=== PATIENT | male | born 1990 | race Caucasian/White ===

== ENCOUNTER 2016-06-30 18:26 | Emergency (ER) | payer OTHER ==
[2016-06-30 19:23] VITALS: BP 142/87; PULSE 85; RESP 18; TEMP 97
--- NOTE | 2016-06-30 20:09 | XR ---
EXAMINATION TYPE: XR knee complete LT DATE OF EXAM: 06/30/2016 8:04 PM COMPARISON: 11/18/2015 HISTORY: Left knee pain TECHNIQUE: 4 views FINDINGS: I see no fracture nor dislocation. Joint spaces are fairly normal. There is no sign of join t effusion. IMPRESSION: Negative left knee exam. No change.
--- NOTE | 2016-06-30 20:15 | ED ---
Lower Extremity Injury HPI - General Chief Complaint: Extremity Injury, Lower Stated Complaint: Knee injury Time Seen by Provider: 06/30/16 19:43 Source: patient, RN notes reviewed, old records reviewed Mode of arrival: ambulatory Limitations: no limitations - History of Present Illness Initial Comments: Patient is a 26 year old male with left knee pain for one day after twisting his leg while getting out of the car. Patient reports he has had multiple surgeries on his right knee from meniscus tears, ACL tear. He reports he is from [place], and does not have an orthopedi physcician around the area. Patient states that he feels his left leg catching and that he can not fully extend or flex his knee. Patient reports that he has a popping sensation whenever extending the knee. Patient denies any peripheral paresthesias. Patient reports he can bear weight over the leg, but it feels that it will give way. - Related Data Previous Rx's Medication Instructions Recorded Naproxen 500 mg PO Q12HR #20 tab 06/30/16 Allergies Allergy/AdvReac Type Severity Reaction Status Date / Time Bees Allergy Dyspnea Uncoded 06/30/16 19:24 Review of Systems ROS Statement: Those systems with pertinent positive or pertinent negative responses have been documented in the HPI. ROS Other: All systems not noted in ROS Statement are negative. Past Medical History Past Medical History: No Reported History History of Any Multi-Drug Resistant Organisms: None Reported Past Surgical History: Orthopedic Surgery Additional Past Surgical History / Comment(s): Right knee ACL repair Past Psychological History: Anxiety, Depression Smoking Status: Current every day smoker Past Alcohol Use History: Rare Past Drug Use History: Marijuana General Exam Limitations: no limitations General appearance: alert, in no apparent distress Head exam: Present: atraumatic, normocephalic, normal inspection Eye exam: Present: normal appearance, PERRL, EOMI. Absent: scleral icterus, conjunctival injection, periorbital swelling ENT exam: Present: normal exam, mucous membranes moist Neck exam: Present: normal inspection. Absent: tenderness, meningismus, lymphadenopathy Respiratory exam: Present: normal lung sounds bilaterally. Absent: respiratory distress, wheezes, rales, rhonchi, stridor Cardiovascular Exam: Present: regular rate, normal rhythm, normal heart sounds. Absent: systolic murmur, diastolic murmur, rubs, gallop, clicks GI/Abdominal exam: Present: soft, normal bowel sounds. Absent: distended, tenderness, guarding, rebound, rigid Extremities exam: Present: normal inspection, full ROM, normal capillary refill. Absent: tenderness, pedal edema, joint swelling, calf tenderness Left Knee exam: Present: tenderness (medial meniscal tenderness. ), swelling, pain/ laxity with valgus. Absent: normal inspection, full ROM (patient can not fully extend and flex leg. ), abrasion, laceration, ecchymosis, deformity Lower Leg exam: Present: normal inspection, full ROM Ankle exam: Present: normal inspection, full ROM Foot/Toe exam: Present: normal inspection, full ROM Course Vital Signs 06/30/16 19:21 Temperature 97.0 F L Pulse Rate 85 Respiratory 18 Rate Blood Pressure 142/87 O2 Sat by Pulse 97 Oximetry Medical Decision Making - Medical Decision Making Patient is a 26 year old male with left knee pain for one day after twisting his leg while getting out of the car. Patient reports he has had multiple surgeries on his right knee from meniscus tears, ACL tear. Xray is reviewed to be negative. I discussed that patient likely has torn meniscus and strained MCL or ACL. Patient given RICARDO wraps, he is unable to fully extend leg for a knee immobilizer. Patient Has crutches at home. Patient given prescription for naproxen and referral for ortho. Patient understands treatment plan and will comply. Disposition Clinical Impression: Left knee sprain Disposition: HOME SELF-CARE Condition: Good Instructions: Knee Sprain (ED) Additional Instructions: She denies rest, ice, elevate extremity. Follow-up with orthopedic physician. Return to emergency Department if any alarming symptoms occur. Prescriptions: Naproxen 500 mg PO Q12HR #20 tab Referrals: None,Stated [Primary Care Provider] - 1-2 days Jessee Morton DO [Doctor of Osteopathic Medicine] - 1-2 days Time of Disposition: 20:14
== END 2016-06-30 20:34 | disposition home or self-care (01) ==
LOC: EC 18:26
DX: S83.92XA Sprain of unspecified site of left knee, initial encounter (principal); F17.200 Nicotine dependence, unspecified, uncomplicated; Z91.030 Bee allergy status; X50.1XXA Overexertion from prolonged static or awkward postures, initial encounter
CPT/HCPCS: 99283

== ENCOUNTER 2016-11-06 22:02 | Emergency (ER) | payer OTHER ==
[2016-11-06 22:18] VITALS: RESP 18
[2016-11-06] MEDS ORDERED: IBUPROFEN 800 MG TAB PO STA (22:27)
--- NOTE | 2016-11-06 22:39 | ED ---
Lower Extremity Injury HPI - General Chief Complaint: Extremity Injury, Lower Stated Complaint: knee pain Time Seen by Provider: 11/06/16 22:19 Source: patient Mode of arrival: wheelchair Limitations: no limitations - History of Present Illness Initial Comments: Patient is a 26-year-old male presenting to the emergency department with complaints of anterior left knee pain. Patient states he was helping a friend move when he was stepping out of the van without hitting the ground and somehow twisted it. Patient states he heard a pop and immediately felt pain to the medial aspect of the right knee. Patient currently complains of a throbbing , stabbing pain rated 8 out of 10, exacerbated with extension and ambulation. Patient states the pain is relieved with flexion. Patient denies distal paresthesia. Patient reports he has been seen in the past on two previous occasions with similar symptoms. Patient states the symptoms resolved with Alexander wrap and weight-bearing restrictions. Patient states he was never instructed to follow-up with an orthopedic surgeon. Patient denies recent illness, fevers , nausea, vomiting, shortness of breath, chest pain, or abdominal pain. - Related Data Previous Rx's Medication Instructions Recorded Naproxen 500 mg PO Q12HR #20 tab 06/30/16 Allergies Allergy/AdvReac Type Severity Reaction Status Date / Time Bees Allergy Dyspnea Uncoded 11/06/16 22:18 Review of Systems ROS Statement: Those systems with pertinent positive or pertinent negative responses have been documented in the HPI. ROS Other: All systems not noted in ROS Statement are negative. Past Medical History Past Medical History: No Reported History History of Any Multi-Drug Resistant Organisms: None Reported Past Surgical History: Orthopedic Surgery Additional Past Surgical History / Comment(s): Right knee ACL repair, fatty tumor removed left leg Past Psychological History: Anxiety, Bipolar, Depression Smoking Status: Current every day smoker Past Alcohol Use History: Rare Past Drug Use History: Marijuana General Exam Limitations: no limitations General appearance: alert, in no apparent distress Head exam: Present: atraumatic, normocephalic, normal inspection Eye exam: Present: normal appearance ENT exam: Present: normal exam, mucous membranes moist, normal external ear exam Neck exam: Present: normal inspection, full ROM. Absent: tenderness Respiratory exam: Present: normal lung sounds bilaterally. Absent: respiratory distress, wheezes, rales, rhonchi Cardiovascular Exam: Present: regular rate, normal rhythm, normal heart sounds. Absent: systolic murmur, diastolic murmur, rubs, gallop, clicks GI/Abdominal exam: Present: soft, normal bowel sounds. Absent: tenderness Left Hip exam: Present: normal inspection, full ROM. Absent: tenderness, swelling Upper Leg exam: Present: normal inspection. Absent: tenderness, swelling Knee exam: Present: tenderness (Tenderness to medial aspect of left knee), swelling. Absent: full ROM (Patient unable to fully extend left knee), abrasion , laceration, ecchymosis, erythema, full knee extension (Patient unable to fully extend left knee) Lower Leg exam: Present: normal inspection. Absent: tenderness, swelling, ecchymosis Ankle exam: Present: normal inspection, full ROM. Absent: tenderness, swelling Foot/Toe exam: Present: normal inspection, full ROM. Absent: tenderness, swelling Neurovascular tendon exam: Present: no vascular compromise. Absent: pulse deficit, abnormal cap refill, sensory deficit, tendon deficit, extremity cold to touch, pallor, foot drop Gait: not tested/not observed Back exam: Present: normal inspection. Absent: tenderness Neurological exam: Present: alert, oriented X3, other (No focal deficits noted) Psychiatric exam: Present: normal affect, normal mood Skin exam: Present: warm, dry, intact, normal color Course Vital Signs 11/06/16 22:14 Temperature 98.6 F Pulse Rate 83 Respiratory 18 Rate Blood Pressure 149/91 O2 Sat by Pulse 99 Oximetry Medical Decision Making - Medical Decision Making Left knee sprain. Left knee wrapped with Alexander wrap as patient states he is unable to fit knee immobilizer. Patient has crutches at home. Patient instructed to follow-up with orthopedic service. Patient instructed to return to the emergency department with any new or worsening symptoms. Patient agrees with treatment plan. Discharge instructions and return parameters reviewed. - Radiology Data Radiology results: report reviewed X-ray left knee: No acute osseous abnormality of the left knee. Disposition Clinical Impression: Left knee sprain Disposition: HOME SELF-CARE Condition: Good Instructions: Knee Sprain (ED), Knee Pain (ED) Additional Instructions: Avoid activity that causes pain, use crutches for non-weightbearing. Ice 20 minutes 4 times a day usually for 2-3 days Alexander wrap to provide support and limit swelling Keep elevated as much as possible 24-48 hours. Continue Motrin and Tylenol for pain. Return to the emergency department with symptoms of increased swelling, pain, numbness, tingling, or foot feeling cold to touch. Follow-up with primary care service and orthopedic service as directed. Referrals: None,Stated [Primary Care Provider] - 1-2 days Jose M Eller MD [STAFF PHYSICIAN] - 1-2 days Time of Disposition: 23:26
[2016-11-06] MEDS ORDERED: HYDROcodone/APAP 5-325MG 1 EACH TAB PO STA (23:12)
--- NOTE | 2016-11-06 23:21 | XR ---
EXAM: XR Left Knee, 3 views CLINICAL HISTORY: Reason: Pain TECHNIQUE: Three views of the left knee. COMPARISON: Left knee radiographs 06/30/16 and 11/18/15. FINDINGS: Bones/joints: Unremarkable. No acute fracture. No dislocation. Soft tissues: Unremarkable. IMPRESSION: No acute osseous abnormality of the left knee
[2016-11-06 23:32] VITALS: BP 123/85; PULSE 75; TEMP 97.6
== END 2016-11-06 23:31 | disposition home or self-care (01) ==
LOC: EC 22:02
DX: S83.92XA Sprain of unspecified site of left knee, initial encounter (principal); F17.200 Nicotine dependence, unspecified, uncomplicated; Z91.030 Bee allergy status; X50.1XXA Overexertion from prolonged static or awkward postures, initial encounter; Y93.89 Activity, other specified
CPT/HCPCS: 99283

== ENCOUNTER 2018-12-06 18:33 | Emergency (ER) | payer OTHER ==
[2018-12-06] MEDS ORDERED: FAMOTIDINE 20 MG/2 ML VIAL IV STA (19:26)
[2018-12-06] MEDS ORDERED: SODIUM CHLORIDE 0.9% 1,000 ML IV ONE (19:26)
[2018-12-06] MEDS ORDERED: KETOROLAC 30 MG/ML 1 ML VIAL IVP STA (19:26)
--- NOTE | 2018-12-06 19:31 | ED ---
Headache HPI - General Chief Complaint: Headache Stated Complaint: Headache, Fever Time Seen by Provider: 12/06/18 19:04 Mode of arrival: ambulatory Limitations: no limitations - History of Present Illness Initial Comments: 28-year-old male patient presents to the emergency department today for evaluation of headache and abdominal discomfort. Patient states that earlier today he was taking a shower when he felt something on his neck, states that he reached up felt a spider and flung off and not before the spider bit him. Patient states that approximately an hour after his shower he started to feel run down. States that he developed a headache has had a burning sensation to the midepigastric region since. Patient states that the headache is located on the right side of his head. Describes it as a throbbing aching pain. Denies any blurred or double vision. Denies any nausea or vomiting. Denies any history of headaches or migraines. He denies fever or chills. Denies any previous abdominal surgeries. States he has been intermittently nauseated but denies any vomiting. Patient denies any recent rash, shortness breath, chest pain, diarrhea, constipation, back pain, numbness, tingling, hematuria, dysuria, urinary urgency, urinary frequency, or any other complaints. - Related Data Home Medications Medication Instructions Recorded Confirmed Ibuprofen [Motrin Ib] 800 mg PO Q8H PRN 12/06/18 12/06/18 Allergies Allergy/AdvReac Type Severity Reaction Status Date / Time Bees Allergy Dyspnea Uncoded 12/06/18 19:10 CILANTRO Allergy Swelling Uncoded 12/06/18 19:12 Review of Systems ROS Statement: Those systems with pertinent positive or pertinent negative responses have been documented in the HPI. ROS Other: All systems not noted in ROS Statement are negative. Past Medical History Past Medical History: No Reported History History of Any Multi-Drug Resistant Organisms: None Reported Past Surgical History: Orthopedic Surgery Additional Past Surgical History / Comment(s): Right knee ACL repair, fatty tumor removed left leg Past Psychological History: Anxiety, Bipolar, Depression Smoking Status: Current every day smoker Past Alcohol Use History: Rare Past Drug Use History: Marijuana General Exam Limitations: no limitations General appearance: alert, in no apparent distress, other (Physical well- developed, well-nourished adult male patient in no acute distress. Vital signs upon presentation are temperature 98.0F, pulse 66, respirations 16, blood pressure 129/83, pulse ox 96% on room air.) Eye exam: Present: normal appearance, PERRL, EOMI. Absent: scleral icterus, conjunctival injection, nystagmus, periorbital swelling Respiratory exam: Present: normal lung sounds bilaterally. Absent: respiratory distress, wheezes, rales, rhonchi, stridor Cardiovascular Exam: Present: regular rate, normal rhythm, normal heart sounds. Absent: systolic murmur, diastolic murmur, rubs, gallop, clicks GI/Abdominal exam: Present: soft, tenderness (Right lower quadrant tenderness), normal bowel sounds. Absent: distended, guarding, rebound, rigid Neurological exam: Present: alert, oriented X3, CN II-XII intact Psychiatric exam: Present: normal affect, normal mood Skin exam: Present: warm, dry, intact, normal color. Absent: rash Course Vital Signs 12/06/18 12/06/18 12/06/18 18:34 20:49 22:04 Temperature 98.0 F 98.1 F Pulse Rate 66 62 62 Respiratory 16 18 18 Rate Blood Pressure 129/83 129/82 120/75 O2 Sat by Pulse 96 95 95 Oximetry Medical Decision Making - Medical Decision Making 28-year-old male patient presents to the emergency department today for evaluation of headache, burning midepigastric pain, and generalized weakness after being bit by a spider earlier today. Labs reviewed and are unremarkable. Patient was given IV fluids and medication. Upon reevaluation he does report complete improvement of symptoms. He'll be discharged at this time to follow-up with his primary care physician for recheck in 1-2 days. Return parameters were discussed in detail. He verbalizes understanding and agrees with this plan. - Lab Data Result diagrams: 12/06/18 19:41 12/06/18 19:41 Lab Results 12/06/18 12/06/18 12/06/18 Range/Units 19:41 19:41 20:00 WBC 7.3 (3.8-10.6) k/uL RBC 5.07 (4.30-5.90) m/uL Hgb 15.4 (13.0-17.5) gm/dL Hct 46.3 (39.0-53.0) % MCV 91.4 (80.0-100.0) fL MCH 30.4 (25.0-35.0) pg MCHC 33.3 (31.0-37.0) g/dL RDW 13.9 (11.5-15.5) % Plt Count 270 (150-450) k/uL Neutrophils % 59 % Lymphocytes % 28 % Monocytes % 6 % Eosinophils % 5 % Basophils % 1 % Neutrophils # 4.3 (1.3-7.7) k/uL Lymphocytes # 2.1 (1.0-4.8) k/uL Monocytes # 0.4 (0-1.0) k/uL Eosinophils # 0.4 (0-0.7) k/uL Basophils # 0.1 (0-0.2) k/uL Sodium 139 (137-145) mmol/L Potassium 4.4 (3.5-5.1) mmol/L Chloride 106 (98-107) mmol/L Carbon Dioxide 23 (22-30) mmol/L Anion Gap 10 mmol/L BUN 13 (9-20) mg/dL Creatinine 0.86 (0.66-1.25) mg/dL Est GFR (CKD-EPI)AfAm >90 (>60 ml/min/1.73 sqM) Est GFR (CKD-EPI)NonAf >90 (>60 ml/min/1.73 sqM) Glucose 90 (74-99) mg/dL Calcium 9.6 (8.4-10.2) mg/dL Total Bilirubin 0.5 (0.2-1.3) mg/dL AST 25 (17-59) U/L ALT 26 (21-72) U/L Alkaline Phosphatase 77 (38-126) U/L Total Protein 7.6 (6.3-8.2) g/dL Albumin 4.4 (3.5-5.0) g/dL Amylase 54 (30-110) U/L Lipase 59 (23-300) U/L Urine Color Yellow Urine Appearance Clear (Clear) Urine pH 6.0 (5.0-8.0) Ur Specific [place] 1.026 (1.001-1.035) Urine Protein Trace H (Negative) Urine Glucose (UA) Negative (Negative) Urine Ketones Negative (Negative) Urine Blood Negative (Negative) Urine Nitrite Negative (Negative) Urine Bilirubin Negative (Negative) Urine Urobilinogen <2.0 (<2.0) mg/dL Ur Leukocyte Esterase Moderate H (Negative) Urine RBC 2 (0-5) /hpf Urine WBC 10 H (0-5) /hpf Ur Squamous Epith Cells 1 (0-4) /hpf Urine Mucus Many H (None) /hpf Disposition Clinical Impression: Headache Disposition: HOME SELF-CARE Condition: Good Instructions (If sedation given, give patient instructions): Acute Headache (ED) Additional Instructions: Increase fluids. Rest. Follow up to primary care physician for recheck in 1-2 days. Return to the emergency department immediately for any new, worsening, or concerning symptoms. Is patient prescribed a controlled substance at d/c from ED?: No Referrals: None,Stated [Primary Care Provider] - 1-2 days Time of Disposition: 22:10
[2018-12-06 19:55] LABS: Basophils # (A) 0.1 k/uL (0-0.2); Basophils % (A) 1 %; Eosinophils # (A) 0.4 k/uL (0-0.7); Eosinophils % (A) 5 %; HCT 46.3 % (39.0-53.0); HGB 15.4 gm/dL (13.0-17.5); Lymphocytes # (A) 2.1 k/uL (1.0-4.8); Lymphocytes % (A) 28 %; MCH 30.4 pg (25.0-35.0); MCHC 33.3 g/dL (31.0-37.0); MCV 91.4 fL (80.0-100.0); Mean Platelet Volume 7.5; Monocytes # (A) 0.4 k/uL (0-1.0); Monocytes % (A) 6 %; Neutrophils # (A) 4.3 k/uL (1.3-7.7); Neutrophils % (A) 59 %; Platelet Count 270 k/uL (150-450); RBC 5.07 m/uL (4.30-5.90); RDW 13.9 % (11.5-15.5); WBC 7.3 k/uL (3.8-10.6)
[2018-12-06 20:09] LABS: ALT 26 U/L (21-72); AST 25 U/L (17-59); African American GFR (CKD) >90 (>60 ml/min/1.73 sqM); Albumin 4.4 g/dL (3.5-5.0); Alkaline Phosphatase 77 U/L (38-126); Amylase 54 U/L (30-110); Anion Gap 10 mmol/L; Blood Urea Nitrogen 13 mg/dL (9-20); Calcium 9.6 mg/dL (8.4-10.2); Carbon Dioxide 23 mmol/L (22-30); Chloride 106 mmol/L (98-107); Glucose 90 mg/dL (74-99); Potassium 4.4 mmol/L (3.5-5.1); Sodium 139 mmol/L (137-145); Total Bilirubin 0.5 mg/dL (0.2-1.3); Total Protein 7.6 g/dL (6.3-8.2)
[2018-12-06 20:51] VITALS: PULSE 62; RESP 18; TEMP 98.1
[2018-12-06 21:01] LABS: Appearance,Urine Clear (Clear); Bilirubin,Urine Negative (Negative); Blood,Urine Negative (Negative); Color,Urine Yellow; Glucose,Urine (UA) Negative (Negative); Ketones,Urine Negative (Negative); Leukocyte Esterase,Urine Moderate (Negative); Mucus,Urine Many /hpf; Nitrite,Urine Negative (Negative); Protein,Urine Trace (Negative); RBC,Urine 2 /hpf (0-5); Specific Gravity,Urine 1.026 (1.001-1.035); Squamous Epithelial Cell,Urine 1 /hpf (0-4); Urobilinogen,Urine <2.0 mg/dL (<2.0); WBC,Urine 10 /hpf (0-5)
[2018-12-06 22:05] VITALS: BP 120/75
== END 2018-12-06 22:19 | disposition home or self-care (01) ==
LOC: EC 18:33
DX: R51 Headache (principal); T63.301A Toxic effect of unspecified spider venom, accidental (unintentional), initial encounter; R53.1 Weakness; R11.0 Nausea; R10.13 Epigastric pain; F17.200 Nicotine dependence, unspecified, uncomplicated; Z91.018 Allergy to other foods; Z91.030 Bee allergy status
CPT/HCPCS: 99284; 96374; 96375; 96361; 36415; 80053; 82150; 83690; 85025; 81001; J1885

== ENCOUNTER 2019-03-26 22:52 | Emergency (ER) | payer OTHER ==
[2019-03-26 23:00] VITALS: RESP 18
[2019-03-26] MEDS ORDERED: SULFAMETH-TMP DS STARTER PACK 2 TAB BTL PO STA (23:21)
[2019-03-26] MEDS ORDERED: KETOROLAC 30 MG/ML 1 ML VIAL IM STA (23:21)
[2019-03-26] MEDS ORDERED: HYDROcodone/APAP 5-325MG 1 EACH TAB PO STA (23:21)
[2019-03-27] MEDS ORDERED: ACET/COD 300 MG/30 MG STARTER PACK 6 TAB BTL PO STA (00:29)
--- NOTE | 2019-03-27 00:36 | ED ---
Skin/Abscess/FB HPI - General Chief complaint: Skin/Abscess/Foreign Body Stated complaint: Urogenital Time Seen by Provider: 03/26/19 23:03 Source: patient Mode of arrival: ambulatory Limitations: no limitations - History of Present Illness Initial comments: 29-year-old male patient presents to the emergency department today for evaluation of abscess to the perineum. Patient states he noticed the area couple of days ago. Was able to squeeze some pus out yesterday. Patient states that today the area has tripled in size and has become more painful. States he feels generally unwell. Denies actual fevers but states he has been chilled. Denies taking any medication for his symptoms. Denies history of abscess or MRSA. Patient denies any recent rash, shortness breath, chest pain, abdominal pain, nausea, vomiting, diarrhea, constipation, back pain, numbness, tingling, dizziness, weakness, hematuria, dysuria, urinary urgency, urinary frequency, headache, visual changes, or any other complaints. - Related Data Home Medications Medication Instructions Recorded Confirmed Ibuprofen [Motrin Ib] 800 mg PO Q8H PRN 12/06/18 12/06/18 Previous Rx's Medication Instructions Recorded Ibuprofen [Motrin] 600 mg PO Q8HR PRN #30 tab 03/27/19 Sulfamethoxazole/Trimethoprim 1 each PO BID #20 tablet 03/27/19 [Bactrim DS 800-160 mg] Allergies Allergy/AdvReac Type Severity Reaction Status Date / Time Bees Allergy Dyspnea Uncoded 12/06/18 19:10 CILANTRO Allergy Swelling Uncoded 12/06/18 19:12 Review of Systems ROS Statement: Those systems with pertinent positive or pertinent negative responses have been documented in the HPI. ROS Other: All systems not noted in ROS Statement are negative. Past Medical History Past Medical History: No Reported History History of Any Multi-Drug Resistant Organisms: None Reported Past Surgical History: Orthopedic Surgery Additional Past Surgical History / Comment(s): Right knee ACL repair, fatty tumor removed left leg Past Psychological History: Anxiety, Bipolar, Depression Smoking Status: Current every day smoker Past Alcohol Use History: Rare Past Drug Use History: Marijuana General Exam Limitations: no limitations General appearance: alert, in no apparent distress, other (This is a well- developed, well-nourished adult male patient in no acute distress. Vital signs upon presentation are temperature 99.5F, pulse 101, respirations 18, blood pressure 134/81, pulse ox 98% on room air.) Respiratory exam: Present: normal lung sounds bilaterally. Absent: respiratory distress, wheezes, rales, rhonchi, stridor Cardiovascular Exam: Present: regular rate, normal rhythm, normal heart sounds. Absent: systolic murmur, diastolic murmur, rubs, gallop, clicks exam: Present: other (There is 3 x 2 cm abscess noted to the perineum. There is some fluctuance and mild surrounding erythema. This is not close to the perianal region.) Neurological exam: Present: alert, oriented X3, CN II-XII intact Psychiatric exam: Present: normal affect, normal mood Skin exam: Present: warm, dry, intact, normal color. Absent: rash Course Vital Signs 03/26/19 03/27/19 03/27/19 22:55 00:00 01:10 Temperature 99.5 F 98.2 F 98.5 F Pulse Rate 101 H 95 Respiratory 18 18 Rate Blood Pressure 134/81 140/87 O2 Sat by Pulse 98 98 Oximetry Procedures - Incision & Drainage Consent Obtained: verbal consent Indication: Abscess Site: other (Perineum) Size (cm): 3 I&D Cleaning Method: Betadine Needle Aspiration Performed?: Yes Irrigation Performed?: No I&D Drainage Obtained: Pus, Blood Culture Obtained?: Yes Patient Tolerated Procedure: well, no complications Medical Decision Making - Medical Decision Making 29-year-old male patient presents to the emergency department today for evaluation of abscess to the perineum. Physical examination did reveal a 3 x 2 cm area of abscess with fluctuance. Was able to aspirate 10 mL of purulent fluid from the abscess. This was sent for culture. He was started on Bactrim and given pain medication. He is educated regarding warm baths and warm compresses. He is instructed to follow-up with his primary care physician for recheck in 1-2 days. Return parameters were discussed in detail. He verbalizes understanding and agrees with this plan. Disposition Clinical Impression: Abscess Disposition: HOME SELF-CARE Condition: Good Instructions (If sedation given, give patient instructions): Abscess (ED) Additional Instructions: Apply warm compresses or take warm baths 2-3 times daily. Complete antibiotic prescription and full. Follow up with your primary care physician for recheck in 1-2 days. Return to the emergency department immediately for any new, worsening, or concerning symptoms. Prescriptions: Sulfamethoxazole/Trimethoprim [Bactrim DS 800-160 mg] 1 each PO BID #20 tablet Ibuprofen [Motrin] 600 mg PO Q8HR PRN #30 tab PRN Reason: Pain Is patient prescribed a controlled substance at d/c from ED?: No Referrals: None,Stated [Primary Care Provider] - 1-2 days Time of Disposition: 00:33
[2019-03-27 01:11] VITALS: BP 140/87; PULSE 95; TEMP 98.5
== END 2019-03-27 01:12 | disposition home or self-care (01) ==
LOC: EC 22:52
DX: L02.215 Cutaneous abscess of perineum (principal); F17.200 Nicotine dependence, unspecified, uncomplicated; Z91.030 Bee allergy status; Z91.048 Other nonmedicinal substance allergy status
CPT/HCPCS: 87070; 87205; 99283; 10160; 96372; J1885

== ENCOUNTER 2019-11-25 20:28 | Emergency (ER) | payer OTHER ==
[2019-11-25] MEDS ORDERED: ONDANSETRON 4 MG/2 ML VIAL IVP STA (21:29)
[2019-11-25] MEDS ORDERED: SODIUM CHLORIDE 0.9% 1,000 ML IV STA (21:29)
[2019-11-25] MEDS ORDERED: KETOROLAC 30 MG/ML 1 ML VIAL IVP STA (21:29)
--- NOTE | 2019-11-25 21:43 | ED ---
Abdominal Pain HPI - General Chief Complaint: Abdominal Pain Stated Complaint: abdominal pain Time Seen by Provider: 11/25/19 21:13 Source: patient Mode of arrival: ambulatory Limitations: no limitations - History of Present Illness Initial Comments: Patient is a 29-year-old male presenting to emergency Department with a chief complaint of abdominal pain. Patient reports with sudden onset of right-sided abdominal pain is started approximately 2 hours prior arrival. States he was making pizza and then down and felt a sudden onset of pain in the region. He does report nausea but denies any vomiting. Reports the pain is exacerbated with left eye irritation. States the pain is not related to by mouth intake. This reports taking aahr-[id number]-fyhcjgy analgesics with minimal improvement in symptoms. Denies any night sweats fever and chills. Denies hematuria, hematochezia or melena. Denies any penile discharge, testicular swelling or tenderness. Denies previous history of abdominal surgeries. - Related Data Home Medications Medication Instructions Recorded Confirmed Ibuprofen [Motrin Ib] 800 mg PO Q8H PRN 12/06/18 12/06/18 Previous Rx's Medication Instructions Recorded Ibuprofen [Motrin] 600 mg PO Q8HR PRN #30 tab 03/27/19 Sulfamethoxazole/Trimethoprim 1 each PO BID #20 tablet 03/27/19 [Bactrim DS 800-160 mg] Allergies Allergy/AdvReac Type Severity Reaction Status Date / Time Bees Allergy Dyspnea Uncoded 11/25/19 20:57 CILANTRO Allergy Swelling Uncoded 11/25/19 20:57 Review of Systems ROS Statement: Those systems with pertinent positive or pertinent negative responses have been documented in the HPI. ROS Other: All systems not noted in ROS Statement are negative. Past Medical History Past Medical History: No Reported History History of Any Multi-Drug Resistant Organisms: None Reported Past Surgical History: Orthopedic Surgery Additional Past Surgical History / Comment(s): Right knee ACL repair, fatty tumor removed left leg Past Psychological History: Anxiety, Bipolar, Depression Smoking Status: Current every day smoker Past Alcohol Use History: Rare Past Drug Use History: Marijuana General Exam Limitations: no limitations General appearance: alert, in no apparent distress Head exam: Present: atraumatic, normocephalic, normal inspection Eye exam: Present: normal appearance, PERRL, EOMI Pupils: Present: normal accommodation ENT exam: Present: normal exam, normal oropharynx, mucous membranes moist, TM's normal bilaterally, normal external ear exam Neck exam: Present: normal inspection, full ROM. Absent: tenderness Respiratory exam: Present: normal lung sounds bilaterally. Absent: respiratory distress, wheezes Cardiovascular Exam: Present: regular rate, normal rhythm, normal heart sounds GI/Abdominal exam: Present: soft, tenderness (Right lower quadrant tenderness. Positive McBurney point tenderness. Negative Rovsing obturator psoas.), normal bowel sounds. Absent: distended, guarding, rebound, rigid, hernia Extremities exam: Present: normal inspection, full ROM, normal capillary refill Back exam: Present: normal inspection, full ROM, CVA tenderness (R). Absent: tenderness Neurological exam: Present: alert, oriented X3, normal gait Psychiatric exam: Present: normal affect, normal mood Skin exam: Present: warm, dry, intact, normal color Course Vital Signs 11/25/19 20:53 Temperature 98.5 F Pulse Rate 76 Respiratory 16 Rate Blood Pressure 159/98 O2 Sat by Pulse 97 Oximetry Medical Decision Making - Medical Decision Making Patient is 29-year-old male presenting to emergency Department with a chief complaint of abdominal pain. On exam patient does have some right CVA tenderness along with McBurney point tenderness. There is a concern for appendicitis even though this appears to be more of a renal stone. CT abdomen and pelvis reveals no signs of renal stones or appendicitis. No acute processes that would be causing the abdominal pain. CBC CMP and UA are unremarkable. I suspect this is abdominal wall strain which is causing the symptoms. A reevaluation patient is feeling much better after Toradol fluids and antiemetics. Return parameters were thoroughly discussed the patient is understanding and agreeable. He is advised to follow-up with primary care. Case discussed physician. - Lab Data Result diagrams: 11/25/19 21:45 11/25/19 21:45 Lab Results 11/25/19 11/25/19 11/25/19 Range/Units 21:45 21:45 21:45 WBC 8.0 (3.8-10.6) k/uL RBC 5.42 (4.30-5.90) m/uL Hgb 15.8 (13.0-17.5) gm/dL Hct 48.1 (39.0-53.0) % MCV 88.7 (80.0-100.0) fL MCH 29.1 (25.0-35.0) pg MCHC 32.8 (31.0-37.0) g/dL RDW 11.9 (11.5-15.5) % Plt Count 263 (150-450) k/uL Neutrophils % 61 % Lymphocytes % 28 % Monocytes % 5 % Eosinophils % 4 % Basophils % 1 % Neutrophils # 4.9 (1.3-7.7) k/uL Lymphocytes # 2.3 (1.0-4.8) k/uL Monocytes # 0.4 (0-1.0) k/uL Eosinophils # 0.3 (0-0.7) k/uL Basophils # 0.1 (0-0.2) k/uL Sodium 139 (137-145) mmol/L Potassium 4.4 (3.5-5.1) mmol/L Chloride 107 (98-107) mmol/L Carbon Dioxide 22 (22-30) mmol/L Anion Gap 10 mmol/L BUN 9 (9-20) mg/dL Creatinine 0.80 (0.66-1.25) mg/dL Est GFR (CKD-EPI)AfAm >90 (>60 ml/min/1.73 sqM) Est GFR (CKD-EPI)NonAf >90 (>60 ml/min/1.73 sqM) Glucose 88 (74-99) mg/dL Calcium 10.0 (8.4-10.2) mg/dL Total Bilirubin 0.4 (0.2-1.3) mg/dL AST 30 (17-59) U/L ALT 37 (4-49) U/L Alkaline Phosphatase 82 (38-126) U/L Total Protein 7.9 (6.3-8.2) g/dL Albumin 4.9 (3.5-5.0) g/dL Lipase 68 (23-300) U/L Urine Color Yellow Urine Appearance Clear (Clear) Urine pH 5.5 (5.0-8.0) Ur Specific [place] 1.021 (1.001-1.035) Urine Protein Negative (Negative) Urine Glucose (UA) Negative (Negative) Urine Ketones Negative (Negative) Urine Blood Negative (Negative) Urine Nitrite Negative (Negative) Urine Bilirubin Negative (Negative) Urine Urobilinogen <2.0 (<2.0) mg/dL Ur Leukocyte Esterase Trace H (Negative) Urine RBC <1 (0-5) /hpf Urine WBC 4 (0-5) /hpf Ur Squamous Epith Cells 1 (0-4) /hpf Hyaline Casts 1 (0-2) /lpf Urine Mucus Rare H (None) /hpf Disposition Clinical Impression: Abdominal pain Disposition: HOME SELF-CARE Condition: Stable Instructions (If sedation given, give patient instructions): Abdominal Pain (ED) Additional Instructions: Follow with the primary care. Return to emergency department if symptoms worsen. Is patient prescribed a controlled substance at d/c from ED?: No Referrals: None,Stated [Primary Care Provider] - 1-2 days Time of Disposition: 22:53
[2019-11-25 21:57] LABS: Basophils # (A) 0.1 k/uL (0-0.2); Basophils % (A) 1 %; Eosinophils # (A) 0.3 k/uL (0-0.7); Eosinophils % (A) 4 %; HCT 48.1 % (39.0-53.0); HGB 15.8 gm/dL (13.0-17.5); Lymphocytes # (A) 2.3 k/uL (1.0-4.8); Lymphocytes % (A) 28 %; MCH 29.1 pg (25.0-35.0); MCHC 32.8 g/dL (31.0-37.0); MCV 88.7 fL (80.0-100.0); Mean Platelet Volume 7.4; Monocytes # (A) 0.4 k/uL (0-1.0); Monocytes % (A) 5 %; Neutrophils # (A) 4.9 k/uL (1.3-7.7); Neutrophils % (A) 61 %; Platelet Count 263 k/uL (150-450); RBC 5.42 m/uL (4.30-5.90); RDW 11.9 % (11.5-15.5)
[2019-11-25 22:01] LABS: Appearance,Urine Clear (Clear); Bilirubin,Urine Negative (Negative); Blood,Urine Negative (Negative); Color,Urine Yellow; Glucose,Urine (UA) Negative (Negative); Hyaline Casts,Urine 1 /lpf (0-2); Ketones,Urine Negative (Negative); Leukocyte Esterase,Urine Trace (Negative); Mucus,Urine Rare /hpf; Nitrite,Urine Negative (Negative); PH, Urine 5.5 (5.0-8.0); Protein,Urine Negative (Negative); RBC,Urine <1 /hpf (0-5); Specific Gravity,Urine 1.021 (1.001-1.035); Squamous Epithelial Cell,Urine 1 /hpf (0-4); Urobilinogen,Urine <2.0 mg/dL (<2.0); WBC,Urine 4 /hpf (0-5)
[2019-11-25 22:07] LABS: ALT 37 U/L (4-49); AST 30 U/L (17-59); African American GFR (CKD) >90 (>60 ml/min/1.73 sqM); Albumin 4.9 g/dL (3.5-5.0); Alkaline Phosphatase 82 U/L (38-126); Anion Gap 10 mmol/L; Blood Urea Nitrogen 9 mg/dL (9-20); Carbon Dioxide 22 mmol/L (22-30); Chloride 107 mmol/L (98-107); Glucose 88 mg/dL (74-99); Non-African American GFR(CKD) >90 (>60 ml/min/1.73 sqM); Potassium 4.4 mmol/L (3.5-5.1); Sodium 139 mmol/L (137-145); Total Bilirubin 0.4 mg/dL (0.2-1.3); Total Protein 7.9 g/dL (6.3-8.2)
--- NOTE | 2019-11-25 22:37 | CT ---
EXAMINATION TYPE: CT abdomen pelvis w con DATE OF EXAM: 11/25/2019 COMPARISON: None HISTORY: RLQ pain CT DLP: 2369.3 mGycm Automated exposure control for dose reduction was used. CONTRAST: Performed with IV Contrast, patient injected with 100 mL of Isovue 300. Images obtained from the diaphragm to the floor the pelvis with IV contrast. Lung bases are clear. There is no pleural effusion. Heart size is normal. There is no pericardial eff usion. Liver spleen stomach pancreas gallbladder appear normal. Bile ducts are not dilated. There is no adrenal mass. Kidneys show satisfactory contrast opacification. There is no hydronephrosi s. Ureters are not dilated. Delayed images show normal renal excretion. There is no retroperitoneal a denopathy. Appendix is posterior and appears normal. Bladder distends smoothly. There is no inguinal hernia. There is no evidence of a pelvic mass. There is no free fluid in the pelvis. There is no mesenteric edema. There is no ascites or free air. There is no bowel obstruction. There are a few sigmoid diverticula without evidence of diverticulitis. Lumbar vertebra have normal spacing and alignment. There is bilateral L5 spondylolysis without spondy lolisthesis. There is no compression fracture. Bony pelvis appears intact. IMPRESSION: Normal appendix. No sign of acute abdomen and pelvis. I do not see a cause for right lower quadrant p ain. Mild sigmoid diverticulosis.
[2019-11-25 23:03] VITALS: BP 138/93; PULSE 64; RESP 18; TEMP 98
== END 2019-11-25 23:03 | disposition home or self-care (01) ==
LOC: EC 20:28
DX: H57.12 Ocular pain, left eye (principal); R10.9 Unspecified abdominal pain; F17.200 Nicotine dependence, unspecified, uncomplicated; Z91.030 Bee allergy status; Z91.048 Other nonmedicinal substance allergy status
CPT/HCPCS: 36415; 80053; 83690; 85025; 81001; 74177; 99284; 96374; 96375; 96361; J2405; J1885; Q9967

== ENCOUNTER 2019-12-09 15:20 | Emergency (ER) | payer OTHER ==
[2019-12-09 15:35] VITALS: RESP 18; TEMP 98.6
[2019-12-09] MEDS ORDERED: SODIUM CHLORIDE 0.9% 1,000 ML IV STA (15:49)
[2019-12-09] MEDS ORDERED: KETOROLAC 30 MG/ML 1 ML VIAL IVP STA (15:49)
--- NOTE | 2019-12-09 15:51 | ED ---
Abdominal Pain HPI - General Chief Complaint: Abdominal Pain Stated Complaint: abdominal pain Time Seen by Provider: 12/09/19 15:35 Source: patient Mode of arrival: wheelchair Limitations: no limitations - History of Present Illness Initial Comments: Patient is a 29-year-old male presenting to emergency Department with the chief complaint abdominal pain. Patient states the pain started approximately 3 days ago and has been gradually getting worse. Patient states he has not had a bowel movement in 3 days. Patient reports taking a laxative yesterday and had a very small bowel movement earlier this morning but nothing since. He denies any hematochezia or melena with the bowel movement. States the pain is constant and located mostly in his lower abdominal region. States he had a fever over the last 2 days but never actually obtained a temperature. He also reports night sweats. Denies taking any medication to alleviate the symptoms. Denies any urinary symptoms. Denies penile discharge or testicular pain or swelling. - Related Data Home Medications Medication Instructions Recorded Confirmed Ibuprofen [Motrin Ib] 800 mg PO Q8H PRN 12/06/18 12/06/18 Previous Rx's Medication Instructions Recorded Ibuprofen [Motrin] 600 mg PO Q8HR PRN #30 tab 03/27/19 Sulfamethoxazole/Trimethoprim 1 each PO BID #20 tablet 03/27/19 [Bactrim DS 800-160 mg] Amoxicillin/Potassium Clav 1 tab PO Q12HR #20 tab 12/09/19 [Augmentin 875-125 Tablet] Allergies Allergy/AdvReac Type Severity Reaction Status Date / Time Bees Allergy Dyspnea Uncoded 12/09/19 15:32 CILANTRO Allergy Swelling Uncoded 12/09/19 15:32 Review of Systems ROS Statement: Those systems with pertinent positive or pertinent negative responses have been documented in the HPI. ROS Other: All systems not noted in ROS Statement are negative. Past Medical History Past Medical History: No Reported History History of Any Multi-Drug Resistant Organisms: None Reported Past Surgical History: Orthopedic Surgery Additional Past Surgical History / Comment(s): Right knee ACL repair, fatty t umor removed left leg Past Psychological History: Anxiety, Bipolar, Depression Smoking Status: Current some day smoker Past Alcohol Use History: Rare Past Drug Use History: Marijuana General Exam Limitations: no limitations General appearance: alert, in no apparent distress, obese Head exam: Present: atraumatic, normocephalic, normal inspection Eye exam: Present: normal appearance, PERRL, EOMI Pupils: Present: normal accommodation ENT exam: Present: normal exam, normal oropharynx, mucous membranes moist, TM's normal bilaterally, normal external ear exam Neck exam: Present: normal inspection, full ROM. Absent: tenderness Respiratory exam: Present: normal lung sounds bilaterally. Absent: respiratory distress, wheezes Cardiovascular Exam: Present: regular rate, normal rhythm, normal heart sounds GI/Abdominal exam: Present: soft, tenderness (lower abdominal tenderness). Absent: distended, guarding, rebound Extremities exam: Present: normal inspection, full ROM, normal capillary refill. Absent: tenderness Back exam: Present: normal inspection, full ROM. Absent: tenderness, CVA tenderness (R), CVA tenderness (L) Neurological exam: Present: alert, oriented X3, CN II-XII intact, normal gait Psychiatric exam: Present: normal affect, normal mood Course Vital Signs 12/09/19 12/09/19 12/09/19 15:33 15:35 16:35 Temperature 98.6 F Pulse Rate 95 Respiratory 18 18 18 Rate Blood Pressure 128/86 O2 Sat by Pulse 96 Oximetry 12/09/19 17:35 Temperature Pulse Rate 77 Respiratory 18 Rate Blood Pressure 151/95 O2 Sat by Pulse 99 Oximetry Medical Decision Making - Medical Decision Making Patient 29-year-old male presenting to the emergency department with a chief complaint of abdominal pain. On exam, patient has lower abdominal pain but more specifically in the left lower quadrant region. No CVA tenderness. She does have a leukocytosis of 11.6. She does have constipation for the past 3 days with subjective fevers at home. Patient is afebrile here. CT imaging was recommended to patient, he declined secondary to concerns for radiation. His most recent CT was approximately 2 months ago revealed diverticula but no diverticulosis. Considering the clinical presentation and laboratory results, I will treat the patient as suspected diverticulitis. Patient will be started on Augmentin. He will be also advised to start a diverticulitis which includes a clear liquid diet, followed by a low fiber and then a high-fiber diet. Magnesium citrate was discontinued and not given to patient. Strict return parameters were thoroughly discussed the patient is understanding and agreeable. He was advised to follow with primary care physician. ED course was prolonged due to laboratory error where labs had to be redrawn. Case discussed with physician. - Lab Data Result diagrams: 12/09/19 17:50 12/09/19 17:50 Lab Results 12/09/19 12/09/19 12/09/19 Range/Units 17:50 17:50 18:18 WBC 11.7 H (3.8-10.6) k/uL RBC 4.93 (4.30-5.90) m/uL Hgb 14.7 (13.0-17.5) gm/dL Hct 42.8 (39.0-53.0) % MCV 86.9 (80.0-100.0) fL MCH 29.8 (25.0-35.0) pg MCHC 34.3 (31.0-37.0) g/dL RDW 11.5 (11.5-15.5) % Plt Count 222 (150-450) k/uL Neutrophils % 74 % Lymphocytes % 15 % Monocytes % 8 % Eosinophils % 2 % Basophils % 0 % Neutrophils # 8.7 H (1.3-7.7) k/uL Lymphocytes # 1.8 (1.0-4.8) k/uL Monocytes # 0.9 (0-1.0) k/uL Eosinophils # 0.2 (0-0.7) k/uL Basophils # 0.0 (0-0.2) k/uL Sodium 135 L (137-145) mmol/L Potassium 3.7 (3.5-5.1) mmol/L Chloride 104 (98-107) mmol/L Carbon Dioxide 22 (22-30) mmol/L Anion Gap 9 mmol/L BUN 10 (9-20) mg/dL Creatinine 0.62 L (0.66-1.25) mg/dL Est GFR (CKD-EPI)AfAm >90 (>60 ml/min/1.73 sqM) Est GFR (CKD-EPI)NonAf >90 (>60 ml/min/1.73 sqM) Glucose 97 (74-99) mg/dL Calcium 8.6 (8.4-10.2) mg/dL Total Bilirubin 1.5 H (0.2-1.3) mg/dL AST 21 (17-59) U/L ALT 21 (4-49) U/L Alkaline Phosphatase 68 (38-126) U/L Total Protein 6.8 (6.3-8.2) g/dL Albumin 3.8 (3.5-5.0) g/dL Lipase 16 L (23-300) U/L Urine Color Yellow Urine Appearance Clear (Clear) Urine pH 6.5 (5.0-8.0) Ur Specific [place] 1.028 (1.001-1.035) Urine Protein 1+ H (Negative) Urine Glucose (UA) Negative (Negative) Urine Ketones 4+ H (Negative) Urine Blood Negative (Negative) Urine Nitrite Negative (Negative) Urine Bilirubin 1+ H (Negative) Urine Urobilinogen 8.0 (<2.0) mg/dL Ur Leukocyte Esterase Moderate H (Negative) Urine RBC 1 (0-5) /hpf Urine WBC 12 H (0-5) /hpf Ur Squamous Epith Cells <1 (0-4) /hpf Hyaline Casts 1 (0-2) /lpf Urine Mucus Many H (None) /hpf Disposition Clinical Impression: Abdominal pain Disposition: HOME SELF-CARE Condition: Stable Instructions (If sedation given, give patient instructions): Diverticulitis (ED), Diverticulitis Diet (ED), Abdominal Pain (ED) Additional Instructions: Follow instructions regarding diverticulitis that. Take prescribed medication as directed. Return to emergency department if symptoms worse. Prescriptions: Amoxicillin/Potassium Clav [Augmentin 875-125 Tablet] 1 tab PO Q12HR #20 tab Is patient prescribed a controlled substance at d/c from ED?: No Referrals: None,Stated [Primary Care Provider] - 1-2 days Time of Disposition: 18:26
--- NOTE | 2019-12-09 16:48 | XR ---
EXAMINATION TYPE: XR KUB DATE OF EXAM: 12/09/2019 COMPARISON: NONE HISTORY: Abdominal pain TECHNIQUE: 2 views upright FINDINGS: There is no sign of intestinal obstruction or pneumoperitoneum. Fecal pattern is normal. Th ere are no pathologic calcifications. I see no evidence of a mass. Lung bases are clear. IMPRESSION: Nonacute abdomen.
[2019-12-09 17:57] LABS: Basophils % (A) 0 %; Eosinophils # (A) 0.2 k/uL (0-0.7); Eosinophils % (A) 2 %; HCT 42.8 % (39.0-53.0); HGB 14.7 gm/dL (13.0-17.5); Lymphocytes # (A) 1.8 k/uL (1.0-4.8); Lymphocytes % (A) 15 %; MCH 29.8 pg (25.0-35.0); MCHC 34.3 g/dL (31.0-37.0); MCV 86.9 fL (80.0-100.0); Mean Platelet Volume 7.7; Monocytes # (A) 0.9 k/uL (0-1.0); Monocytes % (A) 8 %; Neutrophils # (A) 8.7 k/uL (1.3-7.7); Neutrophils % (A) 74 %; Platelet Count 222 k/uL (150-450); RBC 4.93 m/uL (4.30-5.90); RDW 11.5 % (11.5-15.5); WBC 11.7 k/uL (3.8-10.6)
[2019-12-09] MEDS: MAGNESIUM CITRATE 296 ML BOTTLE PO ONE ×2 (17:58→18:35)
[2019-12-09 18:14] LABS: ALT 21 U/L (4-49); AST 21 U/L (17-59); African American GFR (CKD) >90 (>60 ml/min/1.73 sqM); Albumin 3.8 g/dL (3.5-5.0); Alkaline Phosphatase 68 U/L (38-126); Anion Gap 9 mmol/L; Blood Urea Nitrogen 10 mg/dL (9-20); Calcium 8.6 mg/dL (8.4-10.2); Carbon Dioxide 22 mmol/L (22-30); Chloride 104 mmol/L (98-107); Glucose 97 mg/dL (74-99); Non-African American GFR(CKD) >90 (>60 ml/min/1.73 sqM); Potassium 3.7 mmol/L (3.5-5.1); Sodium 135 mmol/L (137-145); Total Bilirubin 1.5 mg/dL (0.2-1.3); Total Protein 6.8 g/dL (6.3-8.2)
[2019-12-09] MEDS ORDERED: AMOXIC-POT CLAV 875-125MG 1 EACH TAB PO STA (18:26)
[2019-12-09 18:33] LABS: Appearance,Urine Clear (Clear); Bilirubin,Urine 1+ (Negative); Blood,Urine Negative (Negative); Color,Urine Yellow; Glucose,Urine (UA) Negative (Negative); Hyaline Casts,Urine 1 /lpf (0-2); Ketones,Urine 4+ (Negative); Leukocyte Esterase,Urine Moderate (Negative); Mucus,Urine Many /hpf; Nitrite,Urine Negative (Negative); PH, Urine 6.5 (5.0-8.0); Protein,Urine 1+ (Negative); RBC,Urine 1 /hpf (0-5); Specific Gravity,Urine 1.028 (1.001-1.035); Squamous Epithelial Cell,Urine <1 /hpf (0-4); WBC,Urine 12 /hpf (0-5)
[2019-12-09 19:16] VITALS: BP 157/93; PULSE 85
== END 2019-12-09 19:15 | disposition home or self-care (01) ==
LOC: EC 15:20
DX: K59.00 Constipation, unspecified (principal); D72.829 Elevated white blood cell count, unspecified; R50.9 Fever, unspecified; R61 Generalized hyperhidrosis; F17.200 Nicotine dependence, unspecified, uncomplicated; Z87.19 Personal history of other diseases of the digestive system; Z91.018 Allergy to other foods; Z91.030 Bee allergy status
CPT/HCPCS: 36415; 80053; 83690; 85025; 81001; 87086; 74018; 99284; 96374; 96361; J1885

== ENCOUNTER 2020-01-10 03:49 | Inpatient (IN) | payer OTHER ==
[2020-01-10] MEDS ORDERED: SODIUM CHLORIDE 0.9% 1,000 ML IV STA (03:51)
--- NOTE | 2020-01-10 03:57 | ED ---
Abdominal Pain HPI - General Stated Complaint: Abdominal Pain Time Seen by Provider: 01/10/20 03:51 - History of Present Illness Initial Comments: Anson is a previously healthy 30-year-old male who was diagnosed with diverticulitis on December 08 patient admits that he was noncompliant with his oral antibiotics at home. He states that he felt better for a short period of time but pain in the left lower quadrant progressively became worse. Tonight it jordin me and tractable. Pain he reports is 11 out of 10 in intensity. Pain is located in left lower quadrant radiating into his groin. Patient reports she's lost his appetite he feels nauseated from the pain. Denies any change in bowel or bladder habits. Does report his urine looks dark. - Related Data Home Medications Medication Instructions Recorded Confirmed Ibuprofen [Motrin Ib] 800 mg PO Q8H PRN 12/06/18 12/06/18 Previous Rx's Medication Instructions Recorded Ibuprofen [Motrin] 600 mg PO Q8HR PRN #30 tab 03/27/19 Sulfamethoxazole/Trimethoprim 1 each PO BID #20 tablet 03/27/19 [Bactrim DS 800-160 mg] Amoxicillin/Potassium Clav 1 tab PO Q12HR #20 tab 12/09/19 [Augmentin 875-125 Tablet] Allergies Allergy/AdvReac Type Severity Reaction Status Date / Time Bees Allergy Dyspnea Uncoded 12/09/19 15:32 CILANTRO Allergy Swelling Uncoded 12/09/19 15:32 Review of Systems ROS Statement: Those systems with pertinent positive or pertinent negative responses have been documented in the HPI. ROS Other: All systems not noted in ROS Statement are negative. Past Medical History Past Medical History: No Reported History History of Any Multi-Drug Resistant Organisms: None Reported Past Surgical History: Orthopedic Surgery Additional Past Surgical History / Comment(s): Right knee ACL repair, fatty tumor removed left leg Past Psychological History: Anxiety, Bipolar, Depression Smoking Status: Current some day smoker Past Alcohol Use History: Rare Past Drug Use History: Marijuana General Exam - General Exam Comments Initial Comments: Physical Exam GENERAL: Appears uncomfortable, crying out in pain HENT: Normocephalic, Atraumatic. EYES: PERRL, EOMI PULMONARY: Unlabored respirations. No audible rales rhonchi or wheezing was noted. CARDIOVASCULAR: There is a regular rate and rhythm without any murmurs gallops or rubs. ABDOMEN: Soft, normal active bowel sounds Tenderness to palpation left lower quadrant with guarding Patient has tenderness in left lower quadrant with palpation anywhere in the abdomen concerning for peritonitis SKIN: Skin is clear with no lesions or rashes and otherwise unremarkable. : Deferred NEUROLOGIC: Patient is alert and oriented x3. Moving all extremities spontaneously MUSCULOSKELETAL: Normal extremities with adequate strength and full range of motion. No lower extremity swelling or edema. No calf tenderness. PSYCHIATRIC: Normal psychiatric evaluation. Course Vital Signs 01/10/20 03:57 Temperature 98.8 F Pulse Rate 70 Respiratory 18 Rate Blood Pressure 151/103 O2 Sat by Pulse 98 Oximetry Medical Decision Making - Medical Decision Making The patient was seen and evaluated history is obtained from patient and review of medical record 30-year-old male with previous diverticulitis noncompliant with antibiotics now presenting peritoneal an acute pain Labs and computed tomography scan were ordered Computed tomography scan confirms diverticulitis, with microperforations and phlegmon formation Patient care was discussed with the surgeon oim consultant Dr. aJsso who requests IV antibiotics, nothing by mouth diet admission to the surgical service - Lab Data Result diagrams: 01/10/20 04:03 01/10/20 04:03 Lab Results 01/10/20 01/10/20 Range/Units 04:03 04:03 WBC 9.2 (3.8-10.6) k/uL RBC 5.04 (4.30-5.90) m/uL Hgb 14.7 (13.0-17.5) gm/dL Hct 44.4 (39.0-53.0) % MCV 88.2 (80.0-100.0) fL MCH 29.1 (25.0-35.0) pg MCHC 33.0 (31.0-37.0) g/dL RDW 12.7 (11.5-15.5) % Plt Count 263 (150-450) k/uL Neutrophils % 54 % Lymphocytes % 31 % Monocytes % 6 % Eosinophils % 7 % Basophils % 1 % Neutrophils # 5.0 (1.3-7.7) k/uL Lymphocytes # 2.9 (1.0-4.8) k/uL Monocytes # 0.5 (0-1.0) k/uL Eosinophils # 0.7 (0-0.7) k/uL Basophils # 0.1 (0-0.2) k/uL Sodium 137 (137-145) mmol/L Potassium 4.3 (3.5-5.1) mmol/L Chloride 106 (98-107) mmol/L Carbon Dioxide 23 (22-30) mmol/L Anion Gap 8 mmol/L BUN 13 (9-20) mg/dL Creatinine 1.11 (0.66-1.25) mg/dL Est GFR (CKD-EPI)AfAm >90 (>60 ml/min/1.73 sqM) Est GFR (CKD-EPI)NonAf 88 (>60 ml/min/1.73 sqM) Glucose 109 H (74-99) mg/dL Calcium 9.3 (8.4-10.2) mg/dL Total Bilirubin 0.5 (0.2-1.3) mg/dL AST 33 (17-59) U/L ALT 48 (4-49) U/L Alkaline Phosphatase 73 (38-126) U/L Total Protein 7.2 (6.3-8.2) g/dL Albumin 4.4 (3.5-5.0) g/dL Amylase 46 (30-110) U/L Lipase 49 (23-300) U/L Disposition Clinical Impression: Perforated diverticulum of large intestine Disposition: ADMITTED IP TO THIS HOSP Condition: Serious Is patient prescribed a controlled substance at d/c from ED?: No Referrals: Koko Mcnulty MD [Primary Care Provider] - 1-2 days
[2020-01-10 04:19] LABS: Basophils # (A) 0.1 k/uL (0-0.2); Basophils % (A) 1 %; Eosinophils # (A) 0.7 k/uL (0-0.7); Eosinophils % (A) 7 %; HCT 44.4 % (39.0-53.0); HGB 14.7 gm/dL (13.0-17.5); Lymphocytes # (A) 2.9 k/uL (1.0-4.8); Lymphocytes % (A) 31 %; MCH 29.1 pg (25.0-35.0); MCV 88.2 fL (80.0-100.0); Mean Platelet Volume 7.9; Monocytes # (A) 0.5 k/uL (0-1.0); Monocytes % (A) 6 %; Neutrophils % (A) 54 %; Platelet Count 263 k/uL (150-450); RBC 5.04 m/uL (4.30-5.90); RDW 12.7 % (11.5-15.5); WBC 9.2 k/uL (3.8-10.6)
[2020-01-10 04:27] LABS: ALT 48 U/L (4-49); AST 33 U/L (17-59); African American GFR (CKD) >90 (>60 ml/min/1.73 sqM); Albumin 4.4 g/dL (3.5-5.0); Alkaline Phosphatase 73 U/L (38-126); Amylase 46 U/L (30-110); Anion Gap 8 mmol/L; Blood Urea Nitrogen 13 mg/dL (9-20); Calcium 9.3 mg/dL (8.4-10.2); Carbon Dioxide 23 mmol/L (22-30); Chloride 106 mmol/L (98-107); Glucose 109 mg/dL (74-99); Non-African American GFR(CKD) 88 (>60 ml/min/1.73 sqM); Potassium 4.3 mmol/L (3.5-5.1); Sodium 137 mmol/L (137-145); Total Bilirubin 0.5 mg/dL (0.2-1.3); Total Protein 7.2 g/dL (6.3-8.2)
--- NOTE | 2020-01-10 04:36 | CT ---
EXAMINATION TYPE: CT abdomen pelvis w con DATE OF EXAM: 01/10/2020 COMPARISON: 11/25/2019 HISTORY: LLQ pain with N&V, hx of diverticulitis CT DLP: 3087.40 mGycm Automated exposure control for dose reduction was used. CONTRAST: Performed with IV Contrast, patient injected with 100 mL of Isovue 300. Images were obtained from the diaphragm to the floor the pelvis with IV contrast. Lung bases are clear. There is no pleural effusion. Heart size is normal. There is no pericardial eff usion. Liver spleen pancreas stomach gallbladder appear normal. Bile ducts are not dilated. There is no adrenal mass. Kidneys have normal size and contour. There is normal contrast opacificatio n of the kidneys. There is no hydronephrosis. Delayed images show normal renal excretion. There is no retroperitoneal adenopathy. Ureters are not dilated. Bladder distends smoothly. There is no inguinal hernia. There is no free fluid in the pelvis. There is some fat stranding around the proximal sigmoid colon. There are a few air bubbles in the per icolic fat. There is some sigmoid colon wall thickening. There is 4 x 2 cm inflammatory mass posterio r to the proximal sigmoid colon. Appendix is posterior and appears normal. There is no ascites. Lumbar vertebra have normal spacing and alignment. The posterior elements are intact. Bony pelvis is intact. Hip joints are intact. IMPRESSION: There is sigmoid diverticulosis with focal diverticulitis and small peridiverticular phlegmon that is posterior to the proximal sigmoid colon. No drainable fluid collection. Diverticulitis is new compar ed to old exam. normal appendix.
[2020-01-10] MEDS ORDERED: cefTRIAXone IN SWFI 1,000 MG/10 ML SYRINGE IVP STA (04:44)
[2020-01-10] MEDS ORDERED: MORPHINE SULFATE 4 MG/ML SYRINGE IVP STA (04:44)
[2020-01-10] MEDS ORDERED: metroNIDAZOLE-NS PMX 500 MG in SALINE 1 100ML.BAG IVPB STA (04:44)
[2020-01-10] MEDS ORDERED: ONDANSETRON 4 MG/2 ML VIAL IVP PRN (04:51)
[2020-01-10] MEDS ORDERED: NALOXONE 0.4 MG/ML 1 ML VIAL IV PRN ×2 (04:51→13:57)
[2020-01-10] MEDS ORDERED: MORPHINE SULFATE 4 MG/ML SYRINGE IV PRN (04:51)
[2020-01-10] MEDS ORDERED: HYDROmorphone 0.5 MG/0.5 ML SYRINGE IVP PRN (04:51)
[2020-01-10] MEDS: LACTATED RINGERS 1,000 ML IV SCH ×2 (06:23→17:29)
--- NOTE | 2020-01-10 10:45 | P.GSHP ---
History of Present Illness H&P Date: 01/10/20 CHIEF COMPLAINT: Left lower quadrant abdominal pain HISTORY OF PRESENT ILLNESS: This is a 30-year-old male who was diagnosed with diverticulitis in the beginning of December. He reports his been noncompliant with his antibiotic treatment for the diverticulitis. He initially had felt better for a short period of time but then developed left lower quadrant pain that had progressively worsened. Patient was reporting his pain 11 out of 10. The pain was in the left lower quadrant radiating to the groin. He had decrease in appetite and was feeling nauseated. No vomiting. No change in bowel mov ements. He denies any fever, chills or sweats. Patient was found to have diverticulitis with small peridiverticular phlegmon that is posterior to the proximal sigmoid colon noted on CAT scan. Patient seen and examined in the ER with Dr. Mao. PAST MEDICAL HISTORY: See list. PAST SURGICAL HISTORY: See list. MEDICATIONS: See list. ALLERGIES: See list. SOCIAL HISTORY: No illicit drug use. REVIEW OF SYSTEMS: CONSTITUTIONAL: Denies fever or chills. HEENT: Denies blurred vision, vision changes, or eye pain. Denies hemoptysis CARDIOVASCULAR: Denies chest pain or pressure. RESPIRATORY: No shortness of breath. GASTROINTESTINAL: See HPI for pertinent findings HEMATOLOGIC: Denies bleeding disorders. GENITOURINARY: Denies any blood in urine or increased urinary frequency. SKIN: Denies pruitis. Denies rash. PHYSICAL EXAM: VITAL SIGNS: Reviewed GENERAL: Well-developed in no acute distress. HEENT: No sclera icterus. Extraocular movements grossly intact. Moist buccal mucosa. Head is atraumatic, normocephalic. No nasal drainage. ABDOMEN: Soft. Nondistended. Tender with palpation of the left and right lower quadrants NEUROLOGIC: Alert and oriented. Cranial nerves II through XII grossly intact. LABORATORY DATA: WBC 9.2 hemoglobin 14.7 LFTs normal lipase normal IMAGING: CT abdomen and pelvis sigmoid diverticulosis with focal diverticulitis and small area diverticular phlegmon that is posterior to the proximal sigmoid colon. No drainable fluid collection. Diverticulitis is new compared to old exam. Normal appendix. There is a 4 x 2 cm inflammatory mass posterior to the proximal sigmoid colon ASSESSMENT: 1. Acute diverticulitis with small peridiverticular phlegmon and perforation 2. History of diverticulitis with noncompliance with antibiotic treatment PLAN: -Patient is scheduled for sigmoid colectomy with colostomy placement today with Dr. Mao -Patient nothing by mouth for surgery -Consult Dr. Mcnulty for medical management Physician Account Strategist note has been reviewed by physician. Signing provider agrees with the documented findings, assessment, and plan of care. Past Medical History Past Medical History: No Reported History Additional Past Medical History / Comment(s): Pt newly diagnosed with diverticulitis 12/09/19, bilateral knee pain/R knee gives out at times, murmur heard as child only. History of Any Multi-Drug Resistant Organisms: None Reported Past Surgical History: Orthopedic Surgery Additional Past Surgical History / Comment(s): Right knee ACL repair, fatty tumor removed left leg Past Anesthesia/Blood Transfusion Reactions: No Reported Reaction, Motion Sickness Smoking Status: Current every day smoker - Past Family History Father History Unknown: Yes Additional Family Medical History / Comment(s): Pt does not know his father very well. Mother Family Medical History: Hypertension Additional Family Medical History / Comment(s): Gallbladder dx with jaundice/bile duct stones/jaundice, depression/anxiety. Medications and Allergies Home Medications Medication Instructions Recorded Confirmed Type No Known Home Medications 01/10/20 01/10/20 History Allergies Allergy/AdvReac Type Severity Reaction Status Date / Time bee venom protein (honey bee) Allergy Dyspnea Verified 01/10/20 06:22 CILANTRO Allergy Swelling Uncoded 01/10/20 06:22 Surgical - Exam Vital Signs Temp Pulse Resp BP Pulse Ox 98.8 F 70 18 151/103 98 01/10/20 03:57 01/10/20 03:57 01/10/20 03:57 01/10/20 03:57 01/10/20 03:57 Results - Labs 01/10/20 04:03 01/10/20 04:03 Abnormal Lab Results - Last 24 Hours (Table) 01/10/20 Range/Units 04:03 Glucose 109 H (74-99) mg/dL Diabetes panel 01/10/20 Range/Units 04:03 Sodium 137 (137-145) mmol/L Potassium 4.3 (3.5-5.1) mmol/L Chloride 106 (98-107) mmol/L Carbon Dioxide 23 (22-30) mmol/L BUN 13 (9-20) mg/dL Creatinine 1.11 (0.66-1.25) mg/dL Glucose 109 H (74-99) mg/dL Calcium 9.3 (8.4-10.2) mg/dL AST 33 (17-59) U/L ALT 48 (4-49) U/L Alkaline Phosphatase 73 (38-126) U/L Total Protein 7.2 (6.3-8.2) g/dL Albumin 4.4 (3.5-5.0) g/dL Calcium panel 01/10/20 Range/Units 04:03 Calcium 9.3 (8.4-10.2) mg/dL Albumin 4.4 (3.5-5.0) g/dL Pituitary panel 01/10/20 Range/Units 04:03 Sodium 137 (137-145) mmol/L Potassium 4.3 (3.5-5.1) mmol/L Chloride 106 (98-107) mmol/L Carbon Dioxide 23 (22-30) mmol/L BUN 13 (9-20) mg/dL Creatinine 1.11 (0.66-1.25) mg/dL Glucose 109 H (74-99) mg/dL Calcium 9.3 (8.4-10.2) mg/dL Adrenal panel 01/10/20 Range/Units 04:03 Sodium 137 (137-145) mmol/L Potassium 4.3 (3.5-5.1) mmol/L Chloride 106 (98-107) mmol/L Carbon Dioxide 23 (22-30) mmol/L BUN 13 (9-20) mg/dL Creatinine 1.11 (0.66-1.25) mg/dL Glucose 109 H (74-99) mg/dL Calcium 9.3 (8.4-10.2) mg/dL Total Bilirubin 0.5 (0.2-1.3) mg/dL AST 33 (17-59) U/L ALT 48 (4-49) U/L Alkaline Phosphatase 73 (38-126) U/L Total Protein 7.2 (6.3-8.2) g/dL Albumin 4.4 (3.5-5.0) g/dL
[2020-01-10] MEDS: PANTOPRAZOLE 40 MG/10 ML VIAL IV SCH (11:25)
[2020-01-10] MEDS: PIPERACILLIN-TAZOBACTAM 3.375 GM in SODIUM CHLORIDE 0.9% 100 ML IVPB SCH ×2 (12:51→20:38)
[2020-01-10] MEDS ORDERED: IV FLUID CONTINUATION 200 ML IV ONE (12:57)
[2020-01-10] MEDS ORDERED: ONDANSETRON 4 MG/2 ML VIAL IVP ONE (13:08)
[2020-01-10] MEDS ORDERED: DEXAMETHASONE SOD PHOSPHATE 10 MG/ML 1 ML VIAL IV ONE (13:09)
[2020-01-10] MEDS ORDERED: SCOPOLAMINE 1.5MG/72HR PATCH TRANSDERM ONE (13:10)
[2020-01-10] MEDS ORDERED: MIDAZOLAM 2 MG/2 ML VIAL IV ONE (13:17)
--- NOTE | 2020-01-10 13:25 | P.CONS ---
History of Present Illness - Reason for Consult Consult date: 01/10/20 Medical management - Chief Complaint Abdominal pain - History of Present Illness HISTORY OF PRESENT ILLNESS This is a 30-year-old male patient of Dr. Mcnulty with past medical history of bipolar disorder, tobacco use and daily marijuana use. Patient initially presented to [facility] emergency center on November 24 for right lower quadrant abdominal pain. CAT scan of the abdomen and pelvis with contrast at that time revealed normal appendix. No sign of acute abdomen and pelvis. No cause for right lower quadrant pain. Mild sigmoid diverticul osis. He was discharged home with planned follow-up with his PCP. Patient again presented on December 08 at which time he had left lower quadrant pain, leukocytosis of 11.6, afebrile. Patient was started on Augmentin and advised a clear liquid diet followed by low fiber and then high-fiber diet. Patient was seen in the office by Dr. Gil approximately 2 weeks ago and at that time he felt well. He states he had some dull pain but was significantly improved. Patient states that he forgot to take some of his medication consistently and Dr. Mao reports the patient only took 2 tablets of his antibiotics. Over the course, patient states he has had some occasional stomach upset. He was d oing fairly well until last evening when he was playing videogames he thought he was needed to have a bowel movement and sat on the toilet the pain eventually went away. He did have a previous bowel movement about 1 hour before the pain started which was normal and he has had troubles with constipation. He denies having any diarrhea and no blood in the stools. He then went back to playing videogames and the pain returned stabbing type pain that was more severe and he came into the hospital for evaluation. He was found to have W BC of 9.2, hemoglobin 14.7. Electrolytes and renal function normal. Liver function normal. Blood pressure initially 151/103. CAT scan of the abdomen and pelvis with contrast revealed sigmoid diverticulosis with focal diverticulitis and small . Diverticular phlegmon that is posterior to the proximal sigmoid colon. No drainable fluid collection. Diverticulitis is new compared to old exam. Normal appendix. Patient was admitted to Dr. Simental. We have added IV Zosyn and consult with infectious disease, Dr. Pena. At the time of evaluation, patient states that his pain is a number for rest but it goes much higher when he moves or gets up to the bathroom. REVIEW OF SYSTEMS Constitutional: No fever, no chills, no night sweats. No weight change. No weakness, fatigue or lethargy. No daytime sleepiness. EENT: No headache. No blurred vision or double vision, no loss of vision. No loss of Hearing, no ringing in the ears, no dizziness. No nasal drainage or congestion. No epistaxis. No sore throat. Lungs: No shortness of breath, cough, no sputum production. No wheezing. Cardiovascular: No chest pain, no lower extremity edema. No palpitations. No paroxysmal nocturnal dyspnea. No orthopnea. No lightheadedness or dizziness. No syncopal episodes. Abdominal: Reports abdominal pain. Reports occasional nausea, denies vomiting. No diarrhea. Reports constipation. No bloody or tarry stools, reports loss of appetite. Genitourinary: No dysuria, increased frequency, urgency. No urinary retention. Musculoskeletal: No myalgias. No muscle weakness, no gait dysfunction, no frequent falls. No back pain. No neck pain. Integumentary: No wounds, no lesions. No rash or pruritus. No unusual bruising. No change in hair or nails. Neurologic: No aphasia. No facial droop. No change in mentation. No head injury. No headache. No paralysis. No paresthesia. Psychiatric: No depression. No anxiety. No mood swings. Endocrine: No abnormal blood sugars. No weight change. No excessive sweating or thirst. No cold intolerance. SOCIAL HISTORY The patient is a smoker one pack per day since he was 12 years of age. He drinks alcohol rarely. He states he smokes marijuana heavily every day. He lives at home with his girlfriend. FAMILY HISTORY Mother is alive at age 51 with history of gallbladder removal, depression, chronic back pain, possible diabetes. Father is alive but he does not know his father. Patient has one brother with no major medical problems. Patient has 2 sisters and one was born with cerebral palsy, hydrocephalus, spina bifida. Sec ond sister has had appendectomy. Patient does not have any children. PHYSICAL EXAMINATION Gen: This is obesity 1-year-old male. He is resting in bed and appears to be somewhat uncomfortable. HEENT: Head is atraumatic, normocephalic. Pupils equal, round. Sclerae is anicteric. NECK: Supple. No JVD. No lymphadenopathy. No thyromegaly. LUNGS: Clear to auscultation. No wheezes or rhonchi. No intercostal retractions. HEART: Regular rate and rhythm. No murmur. ABDOMEN: Soft. Obese. Bowel sounds are present. Generalized tenderness with increased tenderness to the left lower quadrant. EXTREMITIES: No pedal edema. No calf tenderness. Dorsalis pedis +2 vanessa aterally. NEUROLOGICAL: Patient is awake, alert and oriented x3. Cranial nerves 2 through 12 are grossly intact. ASSESSMENT AND PLAN 1. Perforated diverticulitis with suspected peritonitis and acute abdomen. Patient is scheduled for surgical intervention this afternoon. Patient started on Zosyn and consult added for Dr. Pena. Continue morphine or Dilaudid as needed for pain, Zofran for nausea. Continue IV fluids LR at 125 mL per hour. 2. Suspected peritonitis. Start Zosyn. 3. Tobacco use and dependence. Nicotine patch. 4. Bipolar disorder, stable. Patient not currently on medication. 5. Daily marijuana use. 6. Gastrointestinal prophylaxis. Protonix 40 mg IV daily. 7. DVT prophylaxis. SCDs and LACY hose. 8. High blood pressure readings on presentation most likely secondary to pain. Patient is now normotensive. Continue to monitor. Patient will be admitted to the hospital for a minimum of 2 night stay. Discharge plan: Return home Impression and plan of care have been directed as dictated by the signing physician. Suzanna Wills nurse practitioner acting as scribe for signing physician. Past Medical History Past Medical History: No Reported History Additional Past Medical History / Comment(s): Pt newly diagnosed with diverticulitis 12/09/19, bilateral knee pain/R knee gives out at times, murmur heard as child only. History of Any Multi-Drug Resistant Organisms: None Reported Past Surgical History: Orthopedic Surgery Additional Past Surgical History / Comment(s): Right knee ACL repair, fatty tumor removed left leg Past Anesthesia/Blood Transfusion Reactions: No Reported Reaction, Motion Sickness Smoking Status: Current every day smoker - Past Family History Father History Unknown: Yes Additional Family Medical History / Comment(s): Pt does not know his father very well. Mother Family Medical History: Hypertension Additional Family Medical History / Comment(s): Gallbladder dx with jaundice/bi le duct stones/jaundice, depression/anxiety. Medications and Allergies Home Medications Medication Instructions Recorded Confirmed Type No Known Home Medications 01/10/20 01/10/20 History Allergies Allergy/AdvReac Type Severity Reaction Status Date / Time bee venom protein (honey bee) Allergy Dyspnea Verified 01/10/20 06:22 CILANTRO Allergy Swelling Uncoded 01/10/20 06:22 Physical Exam Vitals: Vital Signs Temp Pulse Resp BP Pulse Ox 01/10/20 10:38 18 01/10/20 09:04 98.7 F 68 18 130/80 96 01/10/20 07:22 98.6 F 76 18 139/83 100 01/10/20 06:00 16 145/87 01/10/20 03:57 98.8 F 70 18 151/103 98 Intake and Output 01/09/20 01/10/20 01/10/20 22:59 06:59 14:59 Other: Weight 131.542 kg 131.542 kg Results CBC & Chem 7: 01/10/20 04:03 01/10/20 04:03 Labs: Abnormal Lab Results - Last 24 Hours (Table) 01/10/20 Range/Units 04:03 Glucose 109 H (74-99) mg/dL
[2020-01-10] MEDS ORDERED: LACTATED RINGERS 1,000 ML IV ONE ×4 (13:40→16:15)
--- NOTE | 2020-01-10 14:02 | P.ANPRN ---
Procedure Note - Anesthesia - Epidural/Spinal Epidural Continuous Time Out Performed: Yes Date of Procedure: 01/10/20 Procedure Start Time: 13:17 Procedure Stop Time: 13:34 Location of Patient: PreOp Sedation Type: Sedate with meaningful contact maintained Preparation: Sterile Dressing Position: Sitting Catheter: Indwelling Needle Guage: 18 Injectate: Test Dose Lidocaine1.5% w/1:200,000 epi Blood Aspirated: No Pain Paresthesia on Injection Noted: No Events: Uneventful and Well Tolerated
[2020-01-10] MEDS ORDERED: PROPOFOL 10 MG/ML 20 ML VIAL IV ONE (14:09)
[2020-01-10] MEDS ORDERED: NEOSTIGMINE 1 MG/ML 10 ML VIAL ONE (14:09)
[2020-01-10] MEDS ORDERED: LIDOCAINE 1% INJ 10MG/ML (20 ML MDV) ONE (14:09)
[2020-01-10] MEDS ORDERED: SUCCINYLCHOLINE CHLORIDE VIAL 200 MG/10 ML VIAL IV ONE (14:09)
[2020-01-10] MEDS ORDERED: ROCURONIUM BROMIDE 10 MG/ML 5 ML VIAL IV ONE (14:09)
[2020-01-10] MEDS ORDERED: MIDAZOLAM 2 MG/2 ML VIAL ONE (14:09)
[2020-01-10] MEDS ORDERED: GLYCOPYRROLATE 0.2 MG/ML 2 ML VIAL ONE (14:09)
[2020-01-10] MEDS ORDERED: ePHEDrine SULFATE/0.9% NACL/PF 50 MG/5 ML SYRINGE IV ONE (14:09)
[2020-01-10] MEDS ORDERED: fentaNYL (PF) 50 MCG/ML 2 ML AMP ONE (14:09)
[2020-01-10] MEDS ORDERED: METOCLOPRAMIDE 5 MG/ML 2 ML VIAL IVP PRN (15:30)
--- NOTE | 2020-01-10 15:37 | P.OP ---
Date of Procedure: 01/10/20 Preoperative Diagnosis: Perforated diverticulitis Postoperative Diagnosis: Perforated diverticulitis Procedure(s) Performed: Sigmoid colectomy Takedown of splenic flexure End colostomy Anesthesia: OSMAN Surgeon: Rickey Mao Estimated Blood Loss (ml): 100 Pathology: other (Sigmoid colon) Condition: stable Disposition: PACU Description of Procedure: The patient's placed on the operative table in the supine position. He received general anesthesia. His abdomen was prepped and draped usual sterile fashion. The patient was morbidly obese. The skin was entered in the midline. Which cautery used to dissect through the abdominal wall. The Bookwalter. The wound. The patient is morbidly obese. A very fat abdominal wall. The extension was extended cephalad. There appeared to be perforation of the proximal sigmoid colon with abscess. This was cultured. At this point the sigmoid colon and left colon was mobilized. The splenic flexure was mobilized as well. This was done using the Harmonic scissors and electrocautery. The distal transverse colon was then transected with a GI stapler. The distal sigmoid colon was transected with a GI stapler. And then the mesentery the bowel was divided using the Enseal device and then sent to pathology. A suitable spot for the colostomy was found on the left upper quadrant and then the skin was incised and then the colon was brought up through the abdominal wall. The abdomen was irrigated with 3 L normal saline. The fascia was closed with looped #1 PDS suture. Skin was closed joe. Telfa dressing applied. The colostomy then matured with 3-0 Vicryl. Colostomy appliance was applied. Patient was sent to recovery room stable condition.
[2020-01-10] MEDS: ROPIVACAINE 500 MG, HYDROMORPHONE (PF) 5 MG in SODIUM CHLORIDE 0.9% 150 ML EPIDURAL PRN ×2 (15:48→16:45)
[2020-01-10] MEDS: HEPARIN SODIUM,PORCINE 5,000 UNIT/ML 1 ML VIAL SQ SCH (16:04)
[2020-01-10] MEDS: HYDROmorphone 1 MG/ML 1 ML SYRINGE IVP ONE ×2 (16:11→16:27)
[2020-01-10] MEDS: D5-0.45% NACL WITH KCL 20MEQ/L 1,000 ML IV SCH (18:25)
[2020-01-10 18:43] LABS: African American GFR (CKD) >90 (>60 ml/min/1.73 sqM); Anion Gap 4 mmol/L; Blood Urea Nitrogen 10 mg/dL (9-20); Calcium 8.7 mg/dL (8.4-10.2); Carbon Dioxide 24 mmol/L (22-30); Chloride 106 mmol/L (98-107); Glucose 132 mg/dL (74-99); Non-African American GFR(CKD) >90 (>60 ml/min/1.73 sqM); Potassium 4.6 mmol/L (3.5-5.1); Sodium 134 mmol/L (137-145)
[2020-01-10 19:19] LABS: Basophils % (A) 0 %; Eosinophils % (A) 0 %; HCT 42.6 % (39.0-53.0); HGB 13.9 gm/dL (13.0-17.5); Lymphocytes # (A) 0.5 k/uL (1.0-4.8); Lymphocytes % (A) 4 %; MCH 29.5 pg (25.0-35.0); MCHC 32.6 g/dL (31.0-37.0); MCV 90.5 fL (80.0-100.0); Monocytes # (A) 0.5 k/uL (0-1.0); Monocytes % (A) 5 %; Neutrophils # (A) 9.5 k/uL (1.3-7.7); Neutrophils % (A) 91 %; Platelet Count 198 k/uL (150-450); RBC 4.71 m/uL (4.30-5.90); RDW 12.6 % (11.5-15.5); WBC 10.5 k/uL (3.8-10.6)
[2020-01-11] MEDS: D5-0.45% NACL WITH KCL 20MEQ/L 1,000 ML IV SCH ×2 (02:35→10:58)
[2020-01-11] MEDS: PIPERACILLIN-TAZOBACTAM 3.375 GM in SODIUM CHLORIDE 0.9% 100 ML IVPB SCH ×3 (03:45→20:26)
[2020-01-11] MEDS: LACTATED RINGERS 1,000 ML IV SCH ×3 (05:37→16:02)
--- NOTE | 2020-01-11 07:07 | P.PN ---
Progress Note - Text Date: 01/11/2020 Time: The patient is status post, exploratory laparotomy, postoperative day number 1 The patient has no complaints of nausea vomiting or headache. The patient does not complain of any lower extremity numbness or weakness. The epidural is running at 10 mL per hour. VAS 1210. The epidural will be maintained and adjusted as needed.
[2020-01-11 08:07] LABS: HCT 40.5 % (39.0-53.0); HGB 12.9 gm/dL (13.0-17.5); MCV 90.7 fL (80.0-100.0); Platelet Count 224 k/uL (150-450); RBC 4.46 m/uL (4.30-5.90); RDW 12.7 % (11.5-15.5); WBC 10.3 k/uL (3.8-10.6)
[2020-01-11 08:20] LABS: ALT 31 U/L (4-49); AST 25 U/L (17-59); African American GFR (CKD) >90 (>60 ml/min/1.73 sqM); Albumin 3.5 g/dL (3.5-5.0); Alkaline Phosphatase 50 U/L (38-126); Anion Gap 4 mmol/L; Blood Urea Nitrogen 9 mg/dL (9-20); Calcium 8.4 mg/dL (8.4-10.2); Carbon Dioxide 27 mmol/L (22-30); Chloride 103 mmol/L (98-107); Glucose 130 mg/dL (74-99); Non-African American GFR(CKD) >90 (>60 ml/min/1.73 sqM); Potassium 4.5 mmol/L (3.5-5.1); Sodium 134 mmol/L (137-145); Total Bilirubin 1.3 mg/dL (0.2-1.3); Total Protein 6.1 g/dL (6.3-8.2)
[2020-01-11 08:47] LABS: Magnesium 1.6 mg/dL (1.6-2.3)
[2020-01-11] MEDS: ONDANSETRON 4 MG/2 ML VIAL IVP PRN (08:47)
[2020-01-11] MEDS: PANTOPRAZOLE 40 MG/10 ML VIAL IV SCH (08:47)
[2020-01-11] MEDS: HEPARIN SODIUM,PORCINE 5,000 UNIT/ML 1 ML VIAL SQ SCH ×3 (08:47→16:38)
[2020-01-11] MEDS: SODIUM CHLORIDE 0.9% 1,000 ML IV SCH (12:37)
--- NOTE | 2020-01-11 14:17 | P.PN ---
Subjective Progress Note Date: 01/11/20 HISTORY OF PRESENT ILLNESS This is a 30-year-old male patient of Dr. Mcnulty with past medical history of bipolar disorder, tobacco use and daily marijuana use. Patient in itially presented to [facility] emergency center on November 24 for right lower quadrant abdominal pain. CAT scan of the abdomen and pelvis with contrast at that time revealed normal appendix. No sign of acute abdomen and pelvis. No cause for right lower quadrant pain. Mild sigmoid diverticulosis. He was discharged home with planned follow-up with his PCP. Patient again presented on December 08 at which time he had left lower quadrant pain, leukocytosis of 11.6, afebrile. Patient was started on Augmentin and advised a clear liquid diet followed by low fiber and then high-fiber diet. Patient was seen in the office by Dr. Gil approximately 2 weeks ago and at that time he fe lt well. He states he had some dull pain but was significantly improved. Patient states that he forgot to take some of his medication consistently and Dr. Mao reports the patient only took 2 tablets of his antibiotics. Over the course, patient states he has had some occasional stomach upset. He was doing fairly well until last evening when he was playing videogames he thought he was needed to have a bowel movement and sat on the toilet the pain eventually went away. He did have a previous bowel movement about 1 hour before the pain started which was normal and he has had troubles with constipation. He denies having any diarrhea and no blood in the stools. He then went back to playing videogames and the pain returned stabbing type pain that was more severe and he came into the hospital for evaluation. He was found to have W BC of 9.2, hemoglobin 14.7. Electrolytes and renal function normal. Liver function normal. Blood pressure initially 151/103. CAT scan of the abdomen and pelvis with contrast revealed sigmoid diverticulosis with focal diverticulitis and small . Diverticular phlegmon that is posterior to the proximal sigmoid colon. No drainable fluid collection. Diverticulitis is new compared to old exam. Normal appendix. Patient was admitted to Dr. Simental. We have added IV Zosyn and consult with infectious disease, Dr. Pena. At the time of evaluation, patient states that his pain is a number for rest but it goes much higher when he moves or gets up to the bathroom. 01/10: Yesterday afternoon, patient underwent sigmoid colectomy, takedown splenic flexure and and colostomy for perforated diverticulitis. Patient denies having any nausea vomiting. He is currently on epidural for pain control. Patient states that his pain is controlled at this time. He does have some left upper quadrant tenderness. Russo catheter in place with adequate urine output. Patient is afebrile, heart rate 91, blood pressure 132/74, pulse ox 92% on room air. A repeat blood work reveals WBC 10.3, hemoglobin 12.9, sodium 134, blood sugar 130, creatinine 0.73. IV fluids will be changed to 0.9 normal saline at 75 mL per hour. Patient is reaching 1500 ML's on incentive spirometry. REVIEW OF SYSTEMS Constitutional: No fever, no chills, no night sweats. No weight change. No weakness, fatigue or lethargy. No daytime sleepiness. EENT: No headache. No blurred vision or double vision, no loss of vision. No loss of Hearing, no ringing in the ears, no dizziness. No nasal drainage or congestion. No epistaxis. No sore throat. Lungs: No shortness of breath, cough, no sputum production. No wheezing. Cardiovascular: No chest pain, no lower extremity edema. No palpitations. No paroxysmal nocturnal dyspnea. No orthopnea. No lightheadedness or dizziness. No syncopal episodes. Abdominal: Reports abdominal pain. Reports occasional nausea, denies vomiting. No diarrhea. Reports constipation. No bloody or tarry stools, reports loss of appetite. Genitourinary: No dysuria, increased frequency, urgency. No urinary retention. Musculoskeletal: No myalgias. No muscle weakness, no gait dysfunction, no frequent falls. No back pain. No neck pain. Integumentary: No wounds, no lesions. No rash or pruritus. No unusual brui sing. No change in hair or nails. Neurologic: No aphasia. No facial droop. No change in mentation. No head injury. No headache. No paralysis. No paresthesia. Psychiatric: No depression. No anxiety. No mood swings. Endocrine: No abnormal blood sugars. No weight change. No excessive sweating or thirst. No cold intolerance. PHYSICAL EXAMINATION Gen: This is obesity 1-year-old male. He is resting in bed and appears to be somewhat uncomfortable. HEENT: Head is atraumatic, normocephalic. Pupils equal, round. Sclerae is anicteric. NECK: Supple. No JVD. No lymphadenopathy. No thyromegaly. LUNGS: Clear to auscultation. No wheezes or rhonchi. No intercostal retractions. HEART: Regular rate and rhythm. No murmur. ABDOMEN: Soft. Obese. Bowel sounds are present. Generalized left upper quadrant tenderness. EXTREMITIES: No pedal edema. No calf tenderness. Dorsalis pedis +2 bilaterally. NEUROLOGICAL: Patient is awake, alert and oriented x3. Cranial nerves 2 through 12 are grossly intact. ASSESSMENT AND PLAN 1. Perforated diverticulitis with suspected peritonitis and acute abdomen status post sigmoid colectomy, takedown splenic flexure and and colostomy. Continue Zosyn and consult Dr. Pena. Continue epidural for pain control, Zofran for nausea. Continue IV fluids 0.9 normal saline at 75 mL per hour. 2. Suspected peritonitis. Continue Zosyn. 3. Tobacco use and dependence. Nicotine patch. 4. Bipolar disorder, stable. Patient not currently on medication. 5. Daily marijuana use. 6. Gastrointestinal prophylaxis. Protonix 40 mg IV daily. 7. DVT prophylaxis. Heparin subcu. 8. High blood pressure readings on presentation most likely secondary to pain. Patient is now normotensive. Continue to monitor. Discharge plan: Return home Impression and plan of care have been directed as dictated by the signing physician. Suzanna Wills nurse practitioner acting as scribe for signing physician. Objective - Vital Signs Vital signs: Vital Signs Temp 98.1 F 01/11/20 05:06 Pulse 91 01/11/20 05:06 Resp 18 01/11/20 05:06 BP 132/74 01/11/20 05:06 Pulse Ox 92 L 01/11/20 05:06 Intake & Output 01/10/20 01/11/20 01/11/20 18:59 06:59 18:59 Intake Total 2513.8 Output Total 525 1750 Balance 1987.8 -0 Weight 131.542 kg Intake: IV 2513.8 Output: Urine 425 1750 Estimated Blood Loss 100 Other: Voiding Method Indwelling Catheter Indwelling Catheter - Labs CBC & Chem 7: 01/11/20 07:27 01/11/20 07:27 Labs: Abnormal Lab Results - Last 24 Hours (Table) 01/10/20 01/10/20 Range/Units 17:47 17:47 Neutrophils # 9.5 H (1.3-7.7) k/uL Lymphocytes # 0.5 L (1.0-4.8) k/uL Sodium 134 L (137-145) mmol/L Glucose 132 H (74-99) mg/dL Microbiology - Last 24 Hours (Table) 01/10/20 15:30 Gram Stain - Preliminary Abdomen Wound Culture - Preliminary 01/10/20 15:30 Anaerobic Culture - Preliminary Abdomen
[2020-01-11] MEDS: ROPIVACAINE 500 MG, HYDROMORPHONE (PF) 5 MG in SODIUM CHLORIDE 0.9% 150 ML EPIDURAL PRN (15:17)
--- NOTE | 2020-01-11 15:25 | P.PN ---
Subjective Progress Note Date: 01/11/20 CHIEF COMPLAINT: Perforated diverticulitis HISTORY OF PRESENT ILLNESS: Patient is status post sigmoid colectomy, takedown of splenic flexure and and colostomy. Postop day #1. He has epidural in place. Pain is controlled. Denies any nausea or vomiting. Denies any gas. No output through colostomy. Patient is afebrile. WBC 10.3 hemoglobin 12.9 PHYSICAL EXAM: VITAL SIGNS: Reviewed. GENERAL: Well-developed in no acute distress. HEENT: No sclera icterus. Extraocular movements grossly intact. Moist buccal mucosa. Head is atraumatic, normocephalic. ABDOMEN: Soft. Nondistended. Colostomy bag in place minimal blood noted as output. NEUROLOGIC: Alert and oriented. Cranial nerves II through XII grossly intact. ASSESSMENT: 1. Perforated diverticulitis status post sigmoid colectomy, takedown of splenic flexure and and colostomy. Postop day #1 2. History of diverticulitis with noncompliance with antibiotic treatment PLAN: -Continue IV antibiotics -Continue IV fluids -Continue pain control -Continue nothing by mouth -Follow up on wound cultures -DVT prophylaxis subcu heparin Physician Manager Laboratory note has been reviewed by physician. Signing provider agrees with the documented findings, assessment, and plan of care. Objective - Vital Signs Vital signs: Vital Signs Temp 98.5 F 01/11/20 11:58 Pulse 106 H 01/11/20 11:58 Resp 17 01/11/20 11:58 BP 126/87 01/11/20 11:58 Pulse Ox 94 L 01/11/20 11:58 Intake & Output 01/10/20 01/11/20 01/11/20 18:59 06:59 18:59 Intake Total 2513.8 Output Total 525 1750 Balance 1988.8 -1750 Weight 131.542 kg Intake: IV 2513.8 Output: Urine 425 1750 Estimated Blood Loss 100 Other: Voiding Method Indwelling Catheter Indwelling Catheter Indwelling Catheter - Labs CBC & Chem 7: 01/11/20 07:27 01/11/20 07:27 Labs: Abnormal Lab Results - Last 24 Hours (Table) 01/10/20 01/10/20 01/11/20 Range/Units 17:47 17:47 07:27 Hgb 12.9 L (13.0-17.5) gm/dL Neutrophils # 9.5 H (1.3-7.7) k/uL Lymphocytes # 0.5 L (1.0-4.8) k/uL Sodium 134 L (137-145) mmol/L Glucose 132 H (74-99) mg/dL Total Protein (6.3-8.2) g/dL 01/11/20 Range/Units 07:27 Hgb (13.0-17.5) gm/dL Neutrophils # (1.3-7.7) k/uL Lymphocytes # (1.0-4.8) k/uL Sodium 134 L (137-145) mmol/L Glucose 130 H (74-99) mg/dL Total Protein 6.1 L (6.3-8.2) g/dL Microbiology - Last 24 Hours (Table) 01/10/20 06:20 Blood Culture - Preliminary Blood No Growth after 24 hours 01/10/20 15:30 Gram Stain - Preliminary Abdomen Wound Culture - Preliminary 01/10/20 15:30 Anaerobic Culture - Preliminary Abdomen
--- NOTE | 2020-01-11 17:39 | PN ---
PROGRESS NOTE DATE OF SERVICE: 01/11/2020 REASON FOR FOLLOWUP: Perforated diverticulitis. INTERVAL HISTORY: Patient is currently afebrile, patient is breathing comfortably. The patient denies having any chest pain. No shortness of breath. No cough. The abdominal pain is currently controlled. No nausea, no vomiting or diarrhea. PHYSICAL EXAMINATION: Blood pressure 126/87 with a pulse of 106, temperature 98.5, he is 94% on room air. General description is a middle-aged male, up in the bed in no distress. RESPIRATORY SYSTEM: Unlabored breathing, clear to auscultation anteriorly. HEART: S1, S2. Regular rate and rhythm. ABDOMEN: Soft, no guarding or rigidity. LABS: Hemoglobin is 12.8, white count 10.3, BUN of 9, creatinine 0.73. Abdominal cultures currently pending. DIAGNOSTIC IMPRESSION AND PLAN: Patient with ruptured diverticulitis, abdominal abscess, status post laparotomy and drainage of the abscess and sigmoid colectomy. Will wait for the culture to finalize, continue Zosyn and will monitor his clinical course closely. MMODL / IJN: [id number] /
[2020-01-12] MEDS: LACTATED RINGERS 1,000 ML IV SCH ×2 (00:45→03:45)
[2020-01-12] MEDS: HEPARIN SODIUM,PORCINE 5,000 UNIT/ML 1 ML VIAL SQ SCH ×4 (01:13→23:55)
[2020-01-12] MEDS: SODIUM CHLORIDE 0.9% 1,000 ML IV SCH (01:14)
[2020-01-12] MEDS: PIPERACILLIN-TAZOBACTAM 3.375 GM in SODIUM CHLORIDE 0.9% 100 ML IVPB SCH ×3 (03:44→19:55)
[2020-01-12 07:39] LABS: HGB 11.7 gm/dL (13.0-17.5); MCH 29.8 pg (25.0-35.0); MCHC 32.5 g/dL (31.0-37.0); MCV 91.8 fL (80.0-100.0); Mean Platelet Volume 7.6; Platelet Count 217 k/uL (150-450); RBC 3.92 m/uL (4.30-5.90); RDW 12.7 % (11.5-15.5); WBC 9.4 k/uL (3.8-10.6)
[2020-01-12] MEDS: PANTOPRAZOLE 40 MG/10 ML VIAL IV SCH (08:12)
[2020-01-12 08:14] LABS: ALT 25 U/L (4-49); AST 23 U/L (17-59); African American GFR (CKD) >90 (>60 ml/min/1.73 sqM); Albumin 3.3 g/dL (3.5-5.0); Alkaline Phosphatase 52 U/L (38-126); Anion Gap 7 mmol/L; Blood Urea Nitrogen 9 mg/dL (9-20); Calcium 8.4 mg/dL (8.4-10.2); Carbon Dioxide 26 mmol/L (22-30); Chloride 103 mmol/L (98-107); Glucose 87 mg/dL (74-99); Non-African American GFR(CKD) >90 (>60 ml/min/1.73 sqM); Sodium 136 mmol/L (137-145); Total Bilirubin 1.1 mg/dL (0.2-1.3)
[2020-01-12] MEDS ORDERED: SODIUM CHLORIDE 0.9% 1,000 ML IV ONE (10:09)
[2020-01-12] MEDS: DEXTROSE 5%-0.45% NACL 1,000 ML IV SCH ×2 (10:12→23:59)
--- NOTE | 2020-01-12 12:00 | P.PN ---
Subjective Progress Note Date: 01/12/20 HISTORY OF PRESENT ILLNESS This is a 30-year-old male patient of Dr. Mcnulty with past medical history of bipolar disorder, tobacco use and daily marijuana use. Patient in itially presented to [facility] emergency center on November 24 for right lower quadrant abdominal pain. CAT scan of the abdomen and pelvis with contrast at that time revealed normal appendix. No sign of acute abdomen and pelvis. No cause for right lower quadrant pain. Mild sigmoid diverticulosis. He was discharged home with planned follow-up with his PCP. Patient again presented on December 08 at which time he had left lower quadrant pain, leukocytosis of 11.6, afebrile. Patient was started on Augmentin and advised a clear liquid diet followed by low fiber and then high-fiber diet. Patient was seen in the office by Dr. Gil approximately 2 weeks ago and at that time he fe lt well. He states he had some dull pain but was significantly improved. Patient states that he forgot to take some of his medication consistently and Dr. Mao reports the patient only took 2 tablets of his antibiotics. Over the course, patient states he has had some occasional stomach upset. He was doing fairly well until last evening when he was playing videogames he thought he was needed to have a bowel movement and sat on the toilet the pain eventually went away. He did have a previous bowel movement about 1 hour before the pain started which was normal and he has had troubles with constipation. He denies having any diarrhea and no blood in the stools. He then went back to playing videogames and the pain returned stabbing type pain that was more severe and he came into the hospital for evaluation. He was found to have W BC of 9.2, hemoglobin 14.7. Electrolytes and renal function normal. Liver function normal. Blood pressure initially 151/103. CAT scan of the abdomen and pelvis with contrast revealed sigmoid diverticulosis with focal diverticulitis and small . Diverticular phlegmon that is posterior to the proximal sigmoid colon. No drainable fluid collection. Diverticulitis is new compared to old exam. Normal appendix. Patient was admitted to Dr. Simental. We have added IV Zosyn and consult with infectious disease, Dr. Pena. At the time of evaluation, patient states that his pain is a number for rest but it goes much higher when he moves or gets up to the bathroom. 01/10: Yesterday afternoon, patient underwent sigmoid colectomy, takedown splenic flexure and and colostomy for perforated diverticulitis. Patient denies having any nausea vomiting. He is currently on epidural for pain control. Patient states that his pain is controlled at this time. He does have some left upper quadrant tenderness. Russo catheter in place with adequate urine output. Patient is afebrile, heart rate 91, blood pressure 132/74, pulse ox 92% on room air. A repeat blood work reveals WBC 10.3, hemoglobin 12.9, sodium 134, blood sugar 130, creatinine 0.73. IV fluids will be changed to 0.9 normal saline at 75 mL per hour. Patient is reaching 1500 ML's on incentive spirometry. 01/11: Patient has been afebrile, heart rate 89, blood pressure 102/82, pulse ox 92% on room air. Repeat blood work reveals WBC 9.4, hemoglobin 11.7, platelet count 217. Patient is continued on Zosyn as advised by Dr. Pena. Wound cultures gram-negative bacilli. Blood culture no growth. Patient has epidural in place and Russo catheter. Patient states that his pain is currently controlled. He has some mild hematuria in Russo bag. Currently does not have any output and ostomy. He is complaining of some new pain on the right border of the incision line. REVIEW OF SYSTEMS Constitutional: No fever, no chills, no night sweats. No weight change. No weakness, fatigue or lethargy. No daytime sleepiness. EENT: No headache. No blurred vision or double vision, no loss of vision. No loss of Hearing, no ringing in the ears, no dizziness. No nasal drainage or congestion. No epistaxis. No sore throat. Lungs: No shortness of breath, cough, no sputum production. No wheezing. Cardiovascular: No chest pain, no lower extremity edema. No palpitations. No paroxysmal nocturnal dyspnea. No orthopnea. No lightheadedness or dizziness. No syncopal episodes. Abdominal: Reports abdominal pain. Reports occasional nausea, denies vomiting. No diarrhea. Reports no stooling. No bloody or tarry stools, reports loss of appetite. Genitourinary: No dysuria, increased frequency, urgency. No urinary retention. Musculoskeletal: No myalgias. No muscle weakness, no gait dysfunction, no frequent falls. No back pain. No neck pain. Integumentary: No wounds, no lesions. No rash or pruritus. No unusual bruising. No change in hair or nails. Neurologic: No aphasia. No facial droop. No change in mentation. No head injury. No headache. No paralysis. No paresthesia. Psychiatric: No depression. No anxiety. No mood swings. Endocrine: No abnormal blood sugars. No weight change. No excessive sweating or thirst. No cold intolerance. PHYSICAL EXAMINATION Gen: This is obesity 1-year-old male. He is resting in bed and appears to be comfortable. HEENT: Head is atraumatic, normocephalic. Pupils equal, round. Sclerae is anicteric. NECK: Supple. No JVD. No lymphadenopathy. No thyromegaly. LUNGS: Clear to auscultation. No wheezes or rhonchi. No intercostal retractions. HEART: Regular rate and rhythm. No murmur. ABDOMEN: Soft. Obese. Bowel sounds are present. Generalized left upper quadrant tenderness. Tenderness on the right side of the incision line, ostomy to the left side with no air/output. Russo in place with small amount of blood clots. EXTREMITIES: No pedal edema. No calf tenderness. Dorsalis pedis +2 bilaterally. NEUROLOGICAL: Patient is awake, alert and oriented x3. Cranial nerves 2 through 12 are grossly intact. ASSESSMENT AND PLAN 1. Perforated diverticulitis with suspected peritonitis and acute abdomen status post sigmoid colectomy, takedown splenic flexure and and colostomy. Continue Zosyn and consult Dr. Pena. Continue epidural for pain control, Zofran for nausea. Continue IV fluids at 125 mL per hour. 2. Suspected peritonitis. Continue Zosyn. 3. Tobacco use and dependence. Nicotine patch. 4. Bipolar disorder, stable. Patient not currently on medication. 5. Daily marijuana use. 6. Gastrointestinal prophylaxis. Protonix 40 mg IV daily. 7. DVT prophylaxis. Heparin subcu. 8. High blood pressure readings on presentation most likely secondary to pain. Patient is now normotensive. Continue to monitor. Discharge plan: Return home Impression and plan of care have been directed as dictated by the signing ph ysician. Suzanna Wills nurse practitioner acting as scribe for signing physician. Objective - Vital Signs Vital signs: Vital Signs Temp 99.5 F 01/12/20 05:04 Pulse 89 01/12/20 05:04 Resp 18 01/12/20 05:04 BP 120/82 01/12/20 05:04 Pulse Ox 92 L 01/12/20 05:04 Intake & Output 01/11/20 01/12/20 01/12/20 18:59 06:59 18:59 Output Total 1000 Balance -1000 Output: Urine 1000 Uretheral (Russo) 1000 Other: Voiding Method Indwelling Catheter Indwelling Catheter # Bowel Movements 0 - Labs CBC & Chem 7: 01/12/20 07:27 01/12/20 07:27 Labs: Abnormal Lab Results - Last 24 Hours (Table) 01/11/20 01/11/20 01/12/20 Range/Units 07:27 07:27 07:27 RBC 3.92 L (4.30-5.90) m/uL Hgb 12.9 L 11.7 L (13.0-17.5) gm/dL Hct 36.0 L (39.0-53.0) % Sodium 134 L (137-145) mmol/L Glucose 130 H (74-99) mg/dL Total Protein 6.1 L (6.3-8.2) g/dL Microbiology - Last 24 Hours (Table) 01/10/20 15:30 Gram Stain - Preliminary Abdomen Wound Culture - Preliminary Gram Neg Bacilli 01/10/20 06:20 Blood Culture - Preliminary Blood No Growth after 24 hours
--- NOTE | 2020-01-12 14:08 | P.PN ---
Progress Note - Text Progress Note Date: 01/12/20 POD#2 thoracic epidural placed at T10 level running at 10 ml/hr patient reports pain under control when not moving 4-5/10 but goes to 10/10 when he coughs or moves he denies any numbness or weakness in lower extremities, denies any back pain. epidural catheter site inspected and no reness or swelling or discharge noted. surgical teams wants the epidural out if possible in order to mobilize the patient better. ok to d/c epidural catheter if pt is on no anticoagulations
--- NOTE | 2020-01-12 15:11 | P.PN ---
Subjective Progress Note Date: 01/12/20 CHIEF COMPLAINT: Perforated diverticulitis HISTORY OF PRESENT ILLNESS: Patient is status post sigmoid colectomy, takedown of splenic flexure and and colostomy. Postop day #2. He has epidural in place. Pain is controlled. Denies any nausea or vomiting. Denies any gas. No stool output through colostomy. Patient is afebrile. WBC 9.4 hemoglobin 11.7 patient reporting feeling thirsty and that his mouth is dry. Patient has been having some wheezing. Discussed with medicine. They have added nebulizer treatments. PHYSICAL EXAM: VITAL SIGNS: Reviewed. GENERAL: Well-developed in no acute distress. HEENT: No sclera icterus. Extraocular movements grossly intact. Moist buccal mucosa. Head is atraumatic, normocephalic. ABDOMEN: Soft. Nondistended. Incision dressing has blood noted distally, otherwise clean dry and intact. Colostomy bag in place minimal blood noted as output. NEUROLOGIC: Alert and oriented. Cranial nerves II through XII grossly intact. ASSESSMENT: 1. Perforated diverticulitis status post sigmoid colectomy, takedown of splenic flexure and and colostomy. Postop day #2 2. History of diverticulitis with noncompliance with antibiotic treatment PLAN: -Continue IV antibiotics -Increase IV fluids to 125 per hour -Give 1 L bolus of normal saline -Continue pain control -Continue nothing by mouth -DVT prophylaxis subcu heparin Physician Cms Expert note has been reviewed by physician. Signing provider agrees with the documented findings, assessment, and plan of care. Objective - Vital Signs Vital signs: Vital Signs Temp 98.3 F 01/12/20 11:51 Pulse 93 01/12/20 11:51 Resp 17 01/12/20 11:51 BP 128/78 01/12/20 11:51 Pulse Ox 95 01/12/20 11:51 Intake & Output 01/11/20 01/12/20 01/12/20 18:59 06:59 18:59 Output Total 1000 Balance -1000 Output: Urine 1000 Uretheral (Russo) 1000 Other: Voiding Method Indwelling Catheter Indwelling Catheter # Bowel Movements 0 - Labs CBC & Chem 7: 01/12/20 07:27 01/12/20 07:27 Labs: Abnormal Lab Results - Last 24 Hours (Table) 01/12/20 01/12/20 Range/Units 07:27 07:27 RBC 3.92 L (4.30-5.90) m/uL Hgb 11.7 L (13.0-17.5) gm/dL Hct 36.0 L (39.0-53.0) % Sodium 136 L (137-145) mmol/L Total Protein 6.0 L (6.3-8.2) g/dL Albumin 3.3 L (3.5-5.0) g/dL Microbiology - Last 24 Hours (Table) 01/10/20 06:20 Blood Culture - Preliminary Blood No Growth after 48 hours 01/10/20 15:30 Gram Stain - Preliminary Abdomen Wound Culture - Preliminary Gram Neg Bacilli
[2020-01-12] MEDS: IPRATROPIUM-ALBUTEROL 3 ML NEB INHALATION SCH ×2 (16:04→20:11)
[2020-01-12] MEDS: HYDROmorphone 1 MG/ML 1 ML SYRINGE IVP PRN ×2 (17:05→22:02)
--- NOTE | 2020-01-12 18:37 | PN ---
PROGRESS NOTE DATE OF SERVICE: 01/12/2020 REASON FOR FOLLOWUP: Perforated sigmoid diverticulitis and abdominal abscess. INTERVAL HISTORY: The patient is currently afebrile. The patient is breathing comfortably. Pain is currently controlled. No chest pain, shortness of breath or cough. No output in his colostomy bag. PHYSICAL EXAMINATION: Blood pressure 149/81 with a pulse of 86, temperature 98.3. General description is a middle-aged male up in the bed in no distress. RESPIRATORY SYSTEM: Unlabored breathing. Clear to auscultation anteriorly. HEART: S1, S2. Regular rate and rhythm. ABDOMEN: Soft. No tenderness. LABS: Hemoglobin is 11.7, white count 9.4. BUN of 9, creatinine 0.76. Abdominal culture with Gram-negative bacilli. DIAGNOSTIC IMPRESSION AND PLAN: Patient with abdominal abscess from perforated sigmoid diverticulitis in this patient who is status post laparotomy and diverting colostomy. Patient at this time is covered with Zosyn; to continue while waiting for the culture to finalize. Continue with supportive care. MMODL / IJN: [id number] /
[2020-01-13] MEDS: DEXTROSE 5%-0.45% NACL 1,000 ML IV SCH ×5 (01:13→23:15)
[2020-01-13] MEDS: PIPERACILLIN-TAZOBACTAM 3.375 GM in SODIUM CHLORIDE 0.9% 100 ML IVPB SCH ×3 (02:58→19:31)
[2020-01-13] MEDS: HYDROmorphone 1 MG/ML 1 ML SYRINGE IVP PRN ×5 (03:01→19:32)
[2020-01-13] MEDS: ONDANSETRON 4 MG/2 ML VIAL IVP PRN (03:08)
[2020-01-13] MEDS: HEPARIN SODIUM,PORCINE 5,000 UNIT/ML 1 ML VIAL SQ SCH ×3 (07:42→23:14)
[2020-01-13] MEDS: PANTOPRAZOLE 40 MG/10 ML VIAL IV SCH (07:42)
[2020-01-13] MEDS: IPRATROPIUM-ALBUTEROL 3 ML NEB INHALATION SCH ×3 (07:48→19:44)
--- NOTE | 2020-01-13 09:23 | P.PN ---
Subjective Progress Note Date: 01/13/20 This is a 30-year-old male patient of Dr. Mcnulty with past medical history of bipolar disorder, tobacco use and daily marijuana use. Patient initially presented to [facility] emergency center on November 24 for right lower quadrant abdominal pain. CAT scan of the abdomen and pelvis with contrast at that time revealed normal appendix. No sign of acute abdomen and pelvis. No cause for right lower quadrant pain. Mild sigmoid diverticulosis. He was discharged home with planned follow-up with his PCP. Patient again presented on December 08 at which time he had left lower quadrant pain, leukocytosis of 11.6, afebrile. Patient was started on Augmentin and advised a clear liquid diet followed by low fiber and then high-fiber diet. Patient was seen in the office by Dr. Gil approximately 2 weeks ago and at that time he felt well. He states he had some dull pain but was significantly improved. Patient states that he forgot to take some of his medication consistently and Dr. Mao reports the patient only took 2 tablets of his antibiotics. Over the course, patient states he has had some occasional stomach upset. He was doing fairly well until last evening when he was playing videogames he thought he was needed to have a bowel movement and sat on the toilet the pain eventually went away. He did have a previous bowel movement about 1 hour before the pain started which was normal and he has had troubles with constipation. He denies having any diarrhea and no blood in the stools. He then went back to playing videogames and the pain returned stabbing type pain that was more severe and he came into the hospital for evaluation. He was found to have W BC of 9.2, hemoglobin 14.7. Electrolytes and renal function normal. Liver function normal. Blood pressure initially 151/103. CAT scan of the abdomen and pelvis with contrast revealed sigmoid diverticulosis with focal diverticulitis and small . Diverticular phlegmon that is posterior to the proximal sigmoid colon. No drainable fluid collection. Diverticulitis is new compared to old exam. Normal appendix. Patient was admitted to Dr. Simental. We have added IV Zosyn and consult with infectious disease, Dr. Pean. At the time of evaluation, patient states that his pain is a number for rest but it goes much higher when he moves or gets up to the bathroom. 01/10: Yesterday afternoon, patient underwent sigmoid colectomy, takedown splenic flexure and and colostomy for perforated diverticulitis. Patient denies having any nausea vomiting. He is currently on epidural for pain control. Patient states that his pain is controlled at this time. He does have some left upper quadrant tenderness. Russo catheter in place with adequate urine output. Patient is afebrile, heart rate 91, blood pressure 132/74, pulse ox 92% on room air. A repeat blood work reveals WBC 10.3, hemoglobin 12.9, sodium 134, blood sugar 130, creatinine 0.73. IV fluids will be changed to 0.9 normal saline at 75 mL per hour. Patient is reaching 1500 ML's on incentive spirometry. 01/11: Patient has been afebrile, heart rate 89, blood pressure 102/82, pulse ox 92% on room air. Repeat blood work reveals WBC 9.4, hemoglobin 11.7, platelet count 217. Patient is continued on Zosyn as advised by Dr. Pena. Wound cultures gram-negative bacilli. Blood culture no growth. Patient has epidural in place and Russo catheter. Patient states that his pain is currently controlled. He has some mild hematuria in Russo bag. Currently does not have any output and ostomy. He is complaining of some new pain on the right border of the incision line. 01/12: Patient remains afebrile. Pulse 82, respirations 17, blood pressure 145/95. Epidural may be DC'd. Full catheter may be DC'd. Patient small amount of drainage noted in the ostomy bag. He does have positive positive bowel sounds. Incisional dressing shows positive dark drainage to the distal portion. Asians states that his pain has been well controlled. Patient continues to feel bloated. REVIEW OF SYSTEMS Constitutional: No fever, no chills, no night sweats. No weight change. No weakness, fatigue or lethargy. No daytime sleepiness. EENT: No headache. No blurred vision or double vision, no loss of vision. No loss of Hearing, no ringing in the ears, no dizziness. No nasal drainage or congestion. No epistaxis. No sore throat. Lungs: No shortness of breath, cough, no sputum production. No wheezing. Cardiovascular: No chest pain, no lower extremity edema. No palpitations. No paroxysmal nocturnal dyspnea. No orthopnea. No lightheadedness or dizziness. No syncopal episodes. Abdominal: Reports abdominal pain. Reports occasional nausea, denies vomiting. No diarrhea. Reports no stooling. No bloody or tarry stools, reports loss of appetite. Genitourinary: No dysuria, increased frequency, urgency. No urinary retention. Musculoskeletal: No myalgias. No muscle weakness, no gait dysfunction, no frequent falls. No back pain. No neck pain. Integumentary: No wounds, no lesions. No rash or pruritus. No unusual bruising. No change in hair or nails. Neurologic: No aphasia. No facial droop. No change in mentation. No head injury. No headache. No paralysis. No paresthesia. Psychiatric: No depression. No anxiety. No mood swings. Endocrine: No abnormal blood sugars. No weight change. No excessive sweating or thirst. No cold intolerance. PHYSICAL EXAMINATION Gen: This is obesity 1-year-old male. He is resting in bed and appears to be comfortable. HEENT: Head is atraumatic, normocephalic. Pupils equal, round. Sclerae is anicteric. NECK: Supple. No JVD. No lymphadenopathy. No thyromegaly. LUNGS: Clear to auscultation. No wheezes or rhonchi. No intercostal retractions. HEART: Regular rate and rhythm. No murmur. ABDOMEN: Soft. Obese. Bowel sounds are present. Generalized left upper quadrant tenderness. Tenderness on the right side of the incision line, ostomy to the left side with no air/output. Russo in place with small amount of blood clots. EXTREMITIES: No pedal edema. No calf tenderness. Dorsalis pedis +2 bilaterally. NEUROLOGICAL: Patient is awake, alert and oriented x3. Cranial nerves 2 through 12 are grossly intact. ASSESSMENT AND PLAN 1. Perforated diverticulitis with suspected peritonitis and acute abdomen status post sigmoid colectomy, takedown splenic flexure and and colostomy. Continue Zosyn and consult Dr. Pena. Continue epidural for pain control, Zofran for nausea. Continue IV fluids at 125 mL per hour. 2. Suspected peritonitis. Continue Zosyn. 3. Tobacco use and dependence. Nicotine patch. 4. Bipolar disorder, stable. Patient not currently on medication. 5. Daily marijuana use. 6. Gastrointestinal prophylaxis. Protonix 40 mg IV daily. 7. DVT prophylaxis. Heparin subcu. 8. High blood pressure readings on presentation most likely secondary to pain. Patient is now normotensive. Continue to monitor. Discharge plan: Return home Impression and plan of care have been directed as dictated by the signing physician. Suki Garcia nurse practitioner acting as scribe for signing physician. Objective - Vital Signs Vital signs: Vital Signs Temp 98.2 F 01/12/20 20:17 Pulse 82 01/12/20 20:17 Resp 17 01/12/20 22:19 BP 145/95 01/12/20 20:17 Pulse Ox 95 01/12/20 11:51 Intake & Output 01/12/20 01/13/20 01/13/20 18:59 06:59 18:59 Intake Total 1475 Output Total 875 Balance 600 Intake: Intake, IV Titration 1475 Amount Dextrose 5%-0.45% NaCl 1, 1375 000 ml @ 125 mls/hr IV . Q8H ALEKS Rx#:[id number] Piperacillin-Tazobactam 3 100 .375 gm In Sodium Chloride 0.9% 100 ml @ 25 mls/hr IVPB Q8H ALEKS Rx#: [id number] Output: Urine 875 Other: Voiding Method Urinal # Voids 1 # Bowel Movements 0 - Labs CBC & Chem 7: 01/12/20 07:27 01/12/20 07:27 Labs: Microbiology - Last 24 Hours (Table) 01/10/20 06:20 Blood Culture - Preliminary Blood No Growth after 72 hours 01/10/20 15:30 Gram Stain - Final Abdomen Wound Culture - Final Escherichia coli Group D Not Enterococcus
--- NOTE | 2020-01-13 12:24 | P.PN ---
Subjective Progress Note Date: 01/13/20 Principal diagnosis: Diverticulitis Patient feeling better. Pain is well-controlled. Remains nothing by mouth. No bowel function. Still feels bloated. He is afebrile. Objective - Vital Signs Vital signs: Vital Signs Temp 98.2 F 01/12/20 20:17 Pulse 82 01/12/20 20:17 Resp 17 01/12/20 22:19 BP 145/95 01/12/20 20:17 Pulse Ox 95 01/12/20 11:51 Intake & Output 01/12/20 01/13/20 01/13/20 18:59 06:59 18:59 Intake Total 1475 Output Total 875 Balance 600 Intake: Intake, IV Titration 1475 Amount Dextrose 5%-0.45% NaCl 1, 1375 000 ml @ 125 mls/hr IV . Q8H [facility] Rx#:[id number] Piperacillin-Tazobactam 3 100 .375 gm In Sodium Chloride 0.9% 100 ml @ 25 mls/hr IVPB Q8H [facility] Rx#: [id number] Output: Urine 875 Other: Voiding Method Urinal # Voids 1 # Bowel Movements 0 - Exam Abdomen: Soft, mild distention, mild diffuse tenderness, incision clean and dry, ostomy pink - Labs CBC & Chem 7: 01/12/20 07:27 01/12/20 07:27 Labs: Microbiology - Last 24 Hours (Table) 01/10/20 06:20 Blood Culture - Preliminary Blood No Growth after 72 hours 01/10/20 15:30 Gram Stain - Final Abdomen Wound Culture - Final Escherichia coli Group D Not Enterococcus Assessment and Plan (1) Perforated diverticulum of large intestine Narrative/Plan: Patient gradually improving. Continue nothing by mouth. Check labs tomorrow. Continue antibiotics. Current Visit: Yes Status: Acute Code(s): K57.20 - DVTRCLI OF LG INT W PERFORATION AND ABSCESS W/O BLEEDING SNOMED Code(s): 000564916
--- NOTE | 2020-01-13 16:13 | PN ---
PROGRESS NOTE DATE OF SERVICE: 01/13/2020 REASON FOR FOLLOWUP: Perforated sigmoid diverticulitis and abdominal abscess. INTERVAL HISTORY: Patient is currently afebrile, has been breathing comfortably. Denies having any chest pain or cough. Abdominal pain is currently controlled. No nausea, vomiting. Did not have any output in the colostomy bag. PHYSICAL EXAMINATION: Blood pressure 146/87, pulse of 89, temperature 98.3, he is 97% on room air. General description is a middle-aged male lying in bed in no distress. Respiratory system: Unlabored breathing, clear to auscultation anteriorly. Heart S1, S2. Regular rate and rhythm. Abdomen is soft, no tenderness. LABS: Wound culture revealed E coli and group B Enterococcus. Blood cultures currently negative. DIAGNOSTIC IMPRESSION AND PLAN: Patient with abdominal abscess from perforated sigmoid diverticulitis, status post diverting colostomy. The patient is currently covered with the Zosyn and to continue while inpatient. Hopefully transition to oral antibiotic on discharge. Continue supportive care. MMODL / IJN: [id number] /
[2020-01-14] MEDS: HYDROmorphone 1 MG/ML 1 ML SYRINGE IVP PRN ×5 (03:32→20:14)
[2020-01-14] MEDS: PIPERACILLIN-TAZOBACTAM 3.375 GM in SODIUM CHLORIDE 0.9% 100 ML IVPB SCH ×3 (03:32→20:13)
[2020-01-14 06:30] LABS: Basophils % (A) 1 %; Eosinophils # (A) 0.6 k/uL (0-0.7); Eosinophils % (A) 9 %; HCT 33.6 % (39.0-53.0); Lymphocytes # (A) 1.6 k/uL (1.0-4.8); Lymphocytes % (A) 27 %; MCH 29.4 pg (25.0-35.0); MCHC 32.8 g/dL (31.0-37.0); MCV 89.6 fL (80.0-100.0); Mean Platelet Volume 8.1; Monocytes # (A) 0.4 k/uL (0-1.0); Monocytes % (A) 7 %; Neutrophils # (A) 3.4 k/uL (1.3-7.7); Neutrophils % (A) 55 %; Platelet Count 292 k/uL (150-450); RBC 3.75 m/uL (4.30-5.90); RDW 12.6 % (11.5-15.5); WBC 6.2 k/uL (3.8-10.6)
[2020-01-14 06:40] LABS: African American GFR (CKD) >90 (>60 ml/min/1.73 sqM); Anion Gap 7 mmol/L; Blood Urea Nitrogen 2 mg/dL (9-20); Calcium 8.5 mg/dL (8.4-10.2); Carbon Dioxide 28 mmol/L (22-30); Chloride 103 mmol/L (98-107); Glucose 113 mg/dL (74-99); Non-African American GFR(CKD) >90 (>60 ml/min/1.73 sqM); Potassium 3.2 mmol/L (3.5-5.1); Sodium 138 mmol/L (137-145)
[2020-01-14] MEDS: HEPARIN SODIUM,PORCINE 5,000 UNIT/ML 1 ML VIAL SQ SCH ×2 (07:26→17:35)
[2020-01-14] MEDS: PANTOPRAZOLE 40 MG/10 ML VIAL IV SCH (07:26)
[2020-01-14] MEDS: DEXTROSE 5%-0.45% NACL 1,000 ML IV SCH ×2 (07:36→15:30)
[2020-01-14] MEDS: IPRATROPIUM-ALBUTEROL 3 ML NEB INHALATION SCH ×4 (07:37→21:09)
--- NOTE | 2020-01-14 10:56 | P.PN ---
Subjective Progress Note Date: 01/14/20 Principal diagnosis: Diverticulitis Patient doing well today. He is starting to have some bowel function through the ostomy. He is hungry. Less bloated. White blood cell count normal. He is afebrile. Objective - Vital Signs Vital signs: Vital Signs Temp 98 F 01/14/20 05:27 Pulse 75 01/14/20 05:27 Resp 18 01/14/20 05:27 BP 146/76 01/14/20 05:27 Pulse Ox 95 01/14/20 05:27 Intake & Output 01/13/20 01/14/20 01/14/20 18:59 06:59 18:59 Other: # Voids 2 # Bowel Movements 1 - Exam Abdomen: Soft, nondistended, dressing clean and dry, ostomy function - Labs CBC & Chem 7: 01/14/20 05:56 01/14/20 05:56 Labs: Abnormal Lab Results - Last 24 Hours (Table) 01/14/20 01/14/20 Range/Units 05:56 05:56 RBC 3.75 L (4.30-5.90) m/uL Hgb 11.0 L (13.0-17.5) gm/dL Hct 33.6 L (39.0-53.0) % Potassium 3.2 L (3.5-5.1) mmol/L BUN 2 L (9-20) mg/dL Creatinine 0.63 L (0.66-1.25) mg/dL Glucose 113 H (74-99) mg/dL Microbiology - Last 24 Hours (Table) 01/10/20 06:20 Blood Culture - Preliminary Blood No Growth after 96 hours 01/10/20 15:30 Anaerobic Culture - Final Abdomen Anaerobic Gm Negative Bacilli Anaerobic Gm Negative Bacilli#2 Assessment and Plan (1) Perforated diverticulum of large intestine Narrative/Plan: (Clear liquid diet. Ambulate. May shower. Begin every other day dressing changes to the wick sites. Current Visit: Yes Status: Acute Code(s): K57.20 - DVTRCLI OF LG INT W PERFORATION AND ABSCESS W/O BLEEDING SNOMED Code(s): 696977255
--- NOTE | 2020-01-14 11:57 | P.PN ---
Subjective Progress Note Date: 01/14/20 This is a 30-year-old male patient of Dr. Mcnulty with past medical history of bipolar disorder, tobacco use and daily marijuana use. Patient initially presented to [facility] emergency center on November 24 for right lower quadrant abdominal pain. CAT scan of the abdomen and pelvis with contrast at that time revealed normal appendix. No sign of acute abdomen and pelvis. No cause for right lower quadrant pain. Mild sigmoid diverticulosis. He was discharged home with planned follow-up with his PCP. Patient again presented on December 08 at which time he had left lower quadrant pain, leukocytosis of 11.6, afebrile. Patient was started on Augmentin and advised a clear liquid diet followed by low fiber and then high-fiber diet. Patient was seen in the office by Dr. Gil approximately 2 weeks ago and at that time he felt well. He states he had some dull pain but was significantly improved. Patient states that he forgot to take some of his medication consistently and Dr. Mao reports the patient only took 2 tablets of his antibiotics. Over the course, patient states he has had some occasional stomach upset. He was doing fairly well until last evening when he was playing videogames he thought he was needed to have a bowel movement and sat on the toilet the pain eventually went away. He did have a previous bowel movement about 1 hour before the pain started which was normal and he has had troubles with constipation. He denies having any diarrhea and no blood in the stools. He then went back to playing videogames and the pain returned stabbing type pain that was more severe and he came into the hospital for evaluation. He was found to have W BC of 9.2, hemoglobin 14.7. Electrolytes and renal function normal. Liver function normal. Blood pressure initially 151/103. CAT scan of the abdomen and pelvis with contrast revealed sigmoid diverticulosis with focal diverticulitis and small . Diverticular phlegmon that is posterior to the proximal sigmoid colon. No drainable fluid collection. Diverticulitis is new compared to old exam. Normal appendix. Patient was admitted to Dr. Simental. We have added IV Zosyn and consult with infectious disease, Dr. Pena. At the time of evaluation, patient states that his pain is a number for rest but it goes much higher when he moves or gets up to the bathroom. 01/10: Yesterday afternoon, patient underwent sigmoid colectomy, takedown splenic flexure and and colostomy for perforated diverticulitis. Patient denies having any nausea vomiting. He is currently on epidural for pain control. Patient states that his pain is controlled at this time. He does have some left upper quadrant tenderness. Russo catheter in place with adequate urine output. Patient is afebrile, heart rate 91, blood pressure 132/74, pulse ox 92% on room air. A repeat blood work reveals WBC 10.3, hemoglobin 12.9, sodium 134, blood sugar 130, creatinine 0.73. IV fluids will be changed to 0.9 normal saline at 75 mL per hour. Patient is reaching 1500 ML's on incentive spirometry. 01/11: Patient has been afebrile, heart rate 89, blood pressure 102/82, pulse ox 92% on room air. Repeat blood work reveals WBC 9.4, hemoglobin 11.7, platelet count 217. Patient is continued on Zosyn as advised by Dr. Pena. Wound cultures gram-negative bacilli. Blood culture no growth. Patient has epidural in place and Russo catheter. Patient states that his pain is currently controlled. He has some mild hematuria in Russo bag. Currently does not have any output and ostomy. He is complaining of some new pain on the right border of the incision line. 01/12: Patient remains afebrile. Pulse 82, respirations 17, blood pressure 145/95. Epidural may be DC'd. Full catheter may be DC'd. Patient small amount of drainage noted in the ostomy bag. He does have positive positive bowel sounds. Incisional dressing shows positive dark drainage to the distal portion. Asians states that his pain has been well controlled. Patient continues to feel bloated. 01/13: Patient is found lying in bed sleeping. Patient states that he is having difficulty sleeping due to abdominal discomfort and noise in the evening. Patient is unable to take any oral medications at this time due to diet restrictions. Patient has stool noted in his ostomy that is solid and liquid. Patient continues to have positive bowel sounds. REVIEW OF SYSTEMS Constitutional: No fever, no chills, no night sweats. No weight change. No weakness, fatigue or lethargy. No daytime sleepiness. EENT: No headache. No blurred vision or double vision, no loss of vision. No loss of Hearing, no ringing in the ears, no dizziness. No nasal drainage or congestion. No epistaxis. No sore throat. Lungs: No shortness of breath, cough, no sputum production. No wheezing. Cardiovascular: No chest pain, no lower extremity edema. No palpitations. No paroxysmal nocturnal dyspnea. No orthopnea. No lightheadedness or dizziness. No syncopal episodes. Abdominal: Reports abdominal pain. Reports occasional nausea, denies vomiting. No diarrhea. Reports no stooling. No bloody or tarry stools, reports loss of appetite. Genitourinary: No dysuria, increased frequency, urgency. No urinary retention. Musculoskeletal: No myalgias. No muscle weakness, no gait dysfunction, no frequent falls. No back pain. No neck pain. Integumentary: No wounds, no lesions. No rash or pruritus. No unusual bruising. No change in hair or nails. Neurologic: No aphasia. No facial droop. No change in mentation. No head injury. No headache. No paralysis. No paresthesia. Psychiatric: No depression. No anxiety. No mood swings. Endocrine: No abnormal blood sugars. No weight change. No excessive sweating or thirst. No cold intolerance. PHYSICAL EXAMINATION Gen: This is obesity 1-year-old male. He is resting in bed and appears to be comfortable. HEENT: Head is atraumatic, normocephalic. Pupils equal, round. Sclerae is anicteric. NECK: Supple. No JVD. No lymphadenopathy. No thyromegaly. LUNGS: Clear to auscultation. No wheezes or rhonchi. No intercostal retractions. HEART: Regular rate and rhythm. No murmur. ABDOMEN: Soft. Obese. Bowel sounds are present. Generalized left upper quadrant tenderness. Tenderness on the right side of the incision line, ostomy to the left side with no air/output. Russo in place with small amount of blood clots. EXTREMITIES: No pedal edema. No calf tenderness. Dorsalis pedis +2 bilaterally. NEUROLOGICAL: Patient is awake, alert and oriented x3. Cranial nerves 2 through 12 are grossly intact. ASSESSMENT AND PLAN 1. Perforated diverticulitis with suspected peritonitis and acute abdomen status post sigmoid colectomy, takedown splenic flexure and and colostomy. Continue Zosyn and consult Dr. Jean appreciated.. pain control: Dilaudid 0.5 mg IV push every 3 hours as needed morphine 4 mg every 4 hours as needed for severe pain, Zofran for nausea. Continue IV fluids at 125 mL per hour. She is asked to clear liquid diet. May ambulate. 2. Suspected peritonitis. Continue Zosyn. 3. Tobacco use and dependence. Nicotine patch. 4. Bipolar disorder, stable. Patient not currently on medication. 5. Daily marijuana use. 6. Gastrointestinal prophylaxis. Protonix 40 mg IV daily. 7. DVT prophylaxis. Heparin subcu. 8. High blood pressure readings on presentation most likely secondary to pain. Patient is now normotensive. Continue to monitor. Discharge plan: Return home Impression and plan of care have been directed as dictated by the signing physician. Suki Garcia nurse practitioner acting as scribe for signing physician. Objective - Vital Signs Vital signs: Vital Signs Temp 98 F 01/14/20 05:27 Pulse 75 01/14/20 05:27 Resp 18 01/14/20 05:27 BP 146/76 01/14/20 05:27 Pulse Ox 95 01/14/20 05:27 Intake & Output 01/13/20 01/14/20 01/14/20 18:59 06:59 18:59 Other: # Voids 2 # Bowel Movements 1 - Labs CBC & Chem 7: 01/14/20 05:56 01/14/20 05:56 Labs: Abnormal Lab Results - Last 24 Hours (Table) 01/14/20 01/14/20 Range/Units 05:56 05:56 RBC 3.75 L (4.30-5.90) m/uL Hgb 11.0 L (13.0-17.5) gm/dL Hct 33.6 L (39.0-53.0) % Potassium 3.2 L (3.5-5.1) mmol/L BUN 2 L (9-20) mg/dL Creatinine 0.63 L (0.66-1.25) mg/dL Glucose 113 H (74-99) mg/dL Microbiology - Last 24 Hours (Table) 01/10/20 06:20 Blood Culture - Preliminary Blood No Growth after 96 hours 01/10/20 15:30 Anaerobic Culture - Final Abdomen Anaerobic Gm Negative Bacilli Anaerobic Gm Negative Bacilli#2
[2020-01-14] MEDS ORDERED: POTASSIUM CHLORIDE ER 20 MEQ TAB.ER PO STA (12:47)
[2020-01-14 13:07] VITALS: BMI 39.3
[2020-01-14] MEDS ORDERED: POTASSIUM CHLORIDE ER 20 MEQ TAB.ER PO ONE (15:00)
[2020-01-14] MEDS: MELATONIN 3 MG TABLET PO SCH (20:14)
--- NOTE | 2020-01-14 22:13 | PN ---
PROGRESS NOTE DATE OF SERVICE: 01/14/2020 REASON FOR FOLLOWUP: Intra-abdominal abscess from perforated diverticulitis. INTERVAL HISTORY: Patient is currently afebrile, has been breathing comfortably. Denies having any chest pain. No shortness of breath or cough. No nausea, vomiting. Abdominal pain is currently controlled. He did have output in his colostomy. PHYSICAL EXAMINATION: Blood pressure 150/95 with a pulse of 80, temperature 98.3. He is 96% on room air. General description is a middle-aged male lying in bed in no distress. Respiratory system: Unlabored breathing, clear to auscultation anteriorly. Heart S1, S2. Regular rate and rhythm. Abdomen soft. No guarding or rigidity. LABS: Hemoglobin is 11.9, white count 6.2, BUN of 12, creatinine 0.63. Abdominal culture with E coli, Enterococcus and anaerobes. DIAGNOSTIC IMPRESSION AND PLAN: Patient with abdominal abscess status post diverting colostomy. Abdominal culture with E coli that is resistant to Unasyn. Patient is covered with Zosyn. Patient covered with group D Enterococcus. As the patient clinically improved, finish therapy with oral Levaquin and Flagyl for about a week and close outpatient followup. MMODL / IJN: [id number] /
--- NOTE | 2020-01-14 22:32 | P.CONS ---
History of Present Illness - Reason for Consult Consult date: 01/10/20 Perforated diverticulitis and abscess Requesting physician: Rickey Mao - Chief Complaint Worsening abdominal pain x one day - History of Present Illness Patient is a 30-year-old male complaining was diagnosed with diverticulitis on 12/09/2019 and the patient described antibiotic however currently the patient simply noncompliant with his anybody sick at home and she felt better and stopped taking it patient now presented back to [facility] ER on 01/10/2020 1 in the morning with chief complaints of left-sided abdominal pain that has been progressively getting worse the night before he presented to hospital, patient describing his pain to be sharp almost 10 out of 10 with no sniffing and radiation along with the fever and chills, on the rounds. The patient was afebrile and he did have a normal white count patient did have a CT of abdominal pelvis CT shows multiple tuberculosis that focal diverticulitis and small peridiverticular phlegmon, patient was evaluated by general surgery and was taken to the OR the patient is status post laparotomy and diverting colostomy and drainage of the abscess and she has been started on Zosyn and infectious disease was consulted for further management of antibiotic therapy Review of Systems Positive point has been mentioned in the HPI rest of the systems are negative Past Medical History Past Medical History: No Reported History Additional Past Medical History / Comment(s): Pt newly diagnosed with diver ticulitis 12/09/19, bilateral knee pain/R knee gives out at times, murmur heard as child only. History of Any Multi-Drug Resistant Organisms: None Reported Past Surgical History: Orthopedic Surgery Additional Past Surgical History / Comment(s): Right knee ACL repair, fatty tumor removed left leg Past Anesthesia/Blood Transfusion Reactions: No Reported Reaction, Motion Sickness Smoking Status: Current every day smoker - Past Family History Father History Unknown: Yes Additional Family Medical History / Comment(s): Pt does not know his father very well. Mother Family Medical History: Hypertension Additional Family Medical History / Comment(s): Gallbladder dx with jaundice/bile duct stones/jaundice, depression/anxiety. Medications and Allergies Home Medications Medication Instructions Recorded Confirmed Type No Known Home Medications 01/10/20 01/10/20 History Allergies Allergy/AdvReac Type Severity Reaction Status Date / Time bee venom protein (honey bee) Allergy Dyspnea Verified 01/10/20 06:22 CILANTRO Allergy Swelling Uncoded 01/10/20 06:22 Physical Exam Vitals: Vital Signs Temp Pulse Pulse Pulse Resp BP BP 01/10/20 15:46 97.7 F 67 18 148/76 01/10/20 13:32 79 16 120/52 01/10/20 12:55 99.6 F 77 20 124/69 01/10/20 11:36 98.9 F 80 20 114/75 01/10/20 10:38 18 01/10/20 09:04 98.7 F 68 18 130/80 01/10/20 07:22 98.6 F 76 18 139/83 01/10/20 06:00 16 145/87 01/10/20 03:57 98.8 F 70 18 151/103 Pulse Ox 01/10/20 15:46 99 01/10/20 13:32 96 01/10/20 12:55 95 01/10/20 11:36 93 L 01/10/20 10:38 01/10/20 09:04 96 01/10/20 07:22 100 01/10/20 06:00 01/10/20 03:57 98 Intake and Output 01/10/20 01/10/20 01/10/20 06:59 14:59 22:59 Intake Total 1999 5.4 Output Total 475 Balance 1999 -469.6 Intake: IV 1999 5.4 Output: Urine 375 Estimated Blood Loss 100 Other: Weight 131.542 kg 131.542 kg GENERAL DESCRIPTION: Middle-aged male lying in bed, no distress. No tachypnea or accessory muscle of respiration use. HEENT: Shows Pallor , no scleral icterus. Oral mucous membrane is dry. No pharyngeal erythema or thrush NECK: Trachea central, no thyromegaly. LUNGS: Unlabored breathing. Clear to auscultation anteriorly. No wheeze or crackle. HEART: S1, S2, regular rate and rhythm. No loud murmur ABDOMEN: Soft, mild tenderness , no guarding or rigidity, no organomegaly EXTREMITIES: No edema of feet. SKIN: No rash, no masses palpable. NEUROLOGICAL: The patient is awake, alert, oriented x3, mood and affect normal. Results CBC & Chem 7: 01/14/20 05:56 01/14/20 05:56 Labs: Abnormal Lab Results - Last 24 Hours (Table) 01/10/20 Range/Units 04:03 Glucose 109 H (74-99) mg/dL Assessment and Plan Assessment: 1-patient presented to hospital with worsening abdominal pain this patient recently diagnosed with sigmoid diverticulitis unfortunately patient is seen to be noncompliant with his antibiotic as per ER report now with evidence of perforated sigmoid diverticulitis and peridiverticular abscess status post debridement and drainage of the abscess will need to cover for enteric gram- negative both aerobic and anaerobes to be the likely pathogen (1) Perforated diverticulum of large intestine Current Visit: Yes Status: Acute Code(s): K57.20 - DVTRCLI OF LG INT W PERFORATION AND ABSCESS W/O BLEEDING SNOMED Code(s): 759008031 Plan: 1-Zosyn 3.375 g every 8 hours 2-gentle IV fluid We will follow on clinical condition and cultures to further adjust medication if needed Thank you for this consultation will follow this patient with you Time with Patient: Greater than 30
[2020-01-15] MEDS: HYDROmorphone 1 MG/ML 1 ML SYRINGE IVP PRN ×5 (00:06→20:32)
[2020-01-15] MEDS: HEPARIN SODIUM,PORCINE 5,000 UNIT/ML 1 ML VIAL SQ SCH ×3 (00:06→15:35)
[2020-01-15] MEDS: PIPERACILLIN-TAZOBACTAM 3.375 GM in SODIUM CHLORIDE 0.9% 100 ML IVPB SCH ×3 (03:33→20:33)
[2020-01-15] MEDS: DEXTROSE 5%-0.45% NACL 1,000 ML IV SCH (06:06)
[2020-01-15] MEDS: IPRATROPIUM-ALBUTEROL 3 ML NEB INHALATION SCH ×3 (07:30→20:10)
[2020-01-15] MEDS: PANTOPRAZOLE 40 MG/10 ML VIAL IV SCH (07:58)
--- NOTE | 2020-01-15 08:55 | P.PN ---
Subjective Progress Note Date: 01/15/20 This is a 30-year-old male patient of Dr. Mcnulty with past medical history of bipolar disorder, tobacco use and daily marijuana use. Patient initially presented to [facility] emergency center on November 24 for right lower quadrant abdominal pain. CAT scan of the abdomen and pelvis with contrast at that time revealed normal appendix. No sign of acute abdomen and pelvis. No cause for right lower quadrant pain. Mild sigmoid diverticulosis. He was discharged home with planned follow-up with his PCP. Patient again presented on December 08 at which time he had left lower quadrant pain, leukocytosis of 11.6, afebrile. Patient was started on Augmentin and advised a clear liquid diet followed by low fiber and then high-fiber diet. Patient was seen in the office by Dr. Gil approximately 2 weeks ago and at that time he felt well. He states he had some dull pain but was significantly improved. Patient states that he forgot to take some of his medication consistently and Dr. Mao reports the patient only took 2 tablets of his antibiotics. Over the course, patient states he has had some occasional stomach upset. He was doing fairly well until last evening when he was playing videogames he thought he was needed to have a bowel movement and sat on the toilet the pain eventually went away. He did have a previous bowel movement about 1 hour before the pain started which was normal and he has had troubles with constipation. He denies having any diarrhea and no blood in the stools. He then went back to playing videogames and the pain returned stabbing type pain that was more severe and he came into the hospital for evaluation. He was found to have W BC of 9.2, hemoglobin 14.7. Electrolytes and renal function normal. Liver function normal. Blood pressure initially 151/103. CAT scan of the abdomen and pelvis with contrast revealed sigmoid diverticulosis with focal diverticulitis and small . Diverticular phlegmon that is posterior to the proximal sigmoid colon. No drainable fluid collection. Diverticulitis is new compared to old exam. Normal appendix. Patient was admitted to Dr. Simental. We have added IV Zosyn and consult with infectious disease, Dr. Pena. At the time of evaluation, patient states that his pain is a number for rest but it goes much higher when he moves or gets up to the bathroom. 01/10: Yesterday afternoon, patient underwent sigmoid colectomy, takedown splenic flexure and and colostomy for perforated diverticulitis. Patient denies having any nausea vomiting. He is currently on epidural for pain control. Patient states that his pain is controlled at this time. He does have some left upper quadrant tenderness. Russo catheter in place with adequate urine output. Patient is afebrile, heart rate 91, blood pressure 132/74, pulse ox 92% on room air. A repeat blood work reveals WBC 10.3, hemoglobin 12.9, sodium 134, blood sugar 130, creatinine 0.73. IV fluids will be changed to 0.9 normal saline at 75 mL per hour. Patient is reaching 1500 ML's on incentive spirometry. 01/11: Patient has been afebrile, heart rate 89, blood pressure 102/82, pulse ox 92% on room air. Repeat blood work reveals WBC 9.4, hemoglobin 11.7, platelet count 217. Patient is continued on Zosyn as advised by Dr. Pena. Wound cultures gram-negative bacilli. Blood culture no growth. Patient has epidural in place and Russo catheter. Patient states that his pain is currently controlled. He has some mild hematuria in Russo bag. Currently does not have any output and ostomy. He is complaining of some new pain on the right border of the incision line. 01/12: Patient remains afebrile. Pulse 82, respirations 17, blood pressure 145/95. Epidural may be DC'd. Full catheter may be DC'd. Patient small amount of drainage noted in the ostomy bag. He does have positive positive bowel sounds. Incisional dressing shows positive dark drainage to the distal portion. Asians states that his pain has been well controlled. Patient continues to feel bloated. 01/13: Patient is found lying in bed sleeping. Patient states that he is having difficulty sleeping due to abdominal discomfort and noise in the evening. Patient is unable to take any oral medications at this time due to diet restrictions. Patient has stool noted in his ostomy that is solid and liquid. Patient continues to have positive bowel sounds. 01/14: Patient is sitting in continuing to have pain in his coronaries. Patient did have an episode of coughing that caused some lightheadedness. Patient has been to a clear liquid diet and is tolerating well. Patient was able to sleep better last night. Patient is able to pass gas. Patient has been afebrile. Blood pressure 150/92, heart rate 72, respirations 20, pulse ox 96%. REVIEW OF SYSTEMS Constitutional: No fever, no chills, no night sweats. No weight change. No wea kness, fatigue or lethargy. No daytime sleepiness. EENT: No headache. No blurred vision or double vision, no loss of vision. No loss of Hearing, no ringing in the ears, no dizziness. No nasal drainage or congestion. No epistaxis. No sore throat. Lungs: No shortness of breath, cough, no sputum production. No wheezing. Cardiovascular: No chest pain, no lower extremity edema. No palpitations. No paroxysmal nocturnal dyspnea. No orthopnea. No lightheadedness or dizziness. No syncopal episodes. Abdominal: Reports abdominal pain. Reports occasional nausea, denies vomiting. No diarrhea. Reports no stooling. No bloody or tarry stools, reports loss of appetite. Genitourinary: No dysuria, increased frequency, urgency. No urinary retention. Musculoskeletal: No myalgias. No muscle weakness, no gait dysfunction, no frequent falls. No back pain. No neck pain. Integumentary: No wounds, no lesions. No rash or pruritus. No unusual bruising. No change in hair or nails. Neurologic: No aphasia. No facial droop. No change in mentation. No head injury. No headache. No paralysis. No paresthesia. Psychiatric: No depression. No anxiety. No mood swings. Endocrine: No abnormal blood sugars. No weight change. No excessive sweating or thirst. No cold intolerance. PHYSICAL EXAMINATION Gen: This is obesity 1-year-old male. He is resting in bed and appears to be comfortable. HEENT: Head is atraumatic, normocephalic. Pupils equal, round. Sclerae is anicteric. NECK: Supple. No JVD. No lymphadenopathy. No thyromegaly. LUNGS: Clear to auscultation. No wheezes or rhonchi. No intercostal retractions. HEART: Regular rate and rhythm. No murmur. ABDOMEN: Soft. Obese. Bowel sounds are present. Generalized left upper quadrant tenderness. Tenderness on the right side of the incision line, ostomy to the left side with no air/output. Russo in place with small amount of blood clots. EXTREMITIES: No pedal edema. No calf tenderness. Dorsalis pedis +2 bilaterally. NEUROLOGICAL: Patient is awake, alert and oriented x3. Cranial nerves 2 through 12 are grossly intact. ASSESSMENT AND PLAN 1. Perforated diverticulitis with suspected peritonitis and acute abdomen status post sigmoid colectomy, takedown splenic flexure and and colostomy. Continue Zosyn and consult Dr. Jean dixon.. pain control: Dilaudid 0.5 mg IV push every 3 hours as needed morphine 4 mg every 4 hours as needed for severe pain, Zofran for nausea. Continue IV fluids at 125 mL per hour. Diet increased to full liquid. May ambulate. 2. Suspected peritonitis. Continue Zosyn. 3. Tobacco use and dependence. Nicotine patch. 4. Bipolar disorder, stable. Patient not currently on medication. 5. Daily marijuana use. 6. Gastrointestinal prophylaxis. Protonix 40 mg IV daily. 7. DVT prophylaxis. Heparin subcu. 8. High blood pressure readings on presentation most likely secondary to pain. Patient is now normotensive. Continue to monitor. Discharge plan: Return home Impression and plan of care have been directed as dictated by the signing physician. Suki Garcia nurse practitioner acting as scribe for signing physician. Objective - Vital Signs Vital signs: Vital Signs Temp 98.6 F 01/15/20 06:25 Pulse 72 01/15/20 06:25 Resp 20 01/15/20 06:25 BP 150/92 01/15/20 06:25 Pulse Ox 96 01/15/20 06:25 Intake & Output 01/14/20 01/15/20 01/15/20 18:59 06:59 18:59 Intake Total 760 Balance 760 Weight 131.542 kg Intake: Oral 760 Other: Voiding Method Toilet - Labs CBC & Chem 7: 01/14/20 05:56 01/14/20 05:56 Labs: Microbiology - Last 24 Hours (Table) 01/10/20 06:20 Blood Culture - Preliminary Blood No Growth after 120 hours
--- NOTE | 2020-01-15 12:02 | P.PN ---
Subjective Progress Note Date: 01/15/20 Principal diagnosis: Diverticulitis Patient doing about the same. He is having some stool through his ostomy now. He is more depressed about having the ostomy today than he was previously. He felt a popping sensation when coughing last night. Pain was sharp but is improved now. No incisional drainage other than the wick sites. Objective - Vital Signs Vital signs: Vital Signs Temp 98.6 F 01/15/20 06:25 Pulse 72 01/15/20 06:25 Resp 20 01/15/20 06:25 BP 150/92 01/15/20 06:25 Pulse Ox 96 01/15/20 06:25 Intake & Output 01/14/20 01/15/20 01/15/20 18:59 06:59 18:59 Intake Total 760 Balance 760 Weight 131.542 kg Intake: Oral 760 Other: Voiding Method Toilet - Exam Abdomen: Soft, nondistended, wick sites with small amount of drainage, ostomy functioning - Labs CBC & Chem 7: 01/14/20 05:56 01/14/20 05:56 Labs: Microbiology - Last 24 Hours (Table) 01/10/20 06:20 Blood Culture - Preliminary Blood No Growth after 120 hours Assessment and Plan (1) Perforated diverticulum of large intestine Narrative/Plan: Will increase diet to full liquids. Increase activity. Ostomy teaching and care. Current Visit: Yes Status: Acute Code(s): K57.20 - DVTRCLI OF LG INT W PERFORATION AND ABSCESS W/O BLEEDING SNOMED Code(s): 663646720
[2020-01-15] MEDS: MELATONIN 3 MG TABLET PO SCH (20:32)
[2020-01-15] MEDS: ONDANSETRON 4 MG/2 ML VIAL IVP PRN (21:58)
[2020-01-16] MEDS: HEPARIN SODIUM,PORCINE 5,000 UNIT/ML 1 ML VIAL SQ SCH ×3 (01:34→16:38)
[2020-01-16] MEDS: PIPERACILLIN-TAZOBACTAM 3.375 GM in SODIUM CHLORIDE 0.9% 100 ML IVPB SCH ×2 (03:12→12:42)
[2020-01-16] MEDS: HYDROmorphone 1 MG/ML 1 ML SYRINGE IVP PRN (04:55)
--- NOTE | 2020-01-16 06:30 | PN ---
PROGRESS NOTE DATE OF SERVICE: 01/15/2020 REASON FOR FOLLOWUP: Abdominal abscess from perforated sigmoid diverticulitis. INTERVAL HISTORY: The patient is currently afebrile, has been breathing comfortably. The patient denies having any chest pain or shortness of breath or cough. No nausea, no vomiting. No abdominal pain or diarrhea. PHYSICAL EXAMINATION: Blood pressure is 138/83 with a pulse of 67, temperature 98.5. He is 99% on room air. General description is a middle-aged male lying in bed in no distress. RESPIRATORY SYSTEM: Unlabored breathing, clear to auscultation anteriorly. HEART: S1, S2. Regular rate and rhythm. ABDOMEN: Soft, no tenderness. LABS: Hemoglobin is 11, white count 6.2, BUN of 2 creatinine 0.63. DIAGNOSTIC IMPRESSION AND PLAN: Patient with abdominal abscess from perforated sigmoid diverticulitis, status post diverticulitis with diverting colostomy. Abdominal culture with an Escherichia coli, Enterococcus anaerobes, currently covered with the Zosyn finishing therapy with oral Levaquin and Flagyl for about a week. Continue supportive care. MMODL / IJN: [id number] /
[2020-01-16] MEDS: IPRATROPIUM-ALBUTEROL 3 ML NEB INHALATION SCH ×3 (07:14→18:48)
[2020-01-16] MEDS: PANTOPRAZOLE 40 MG/10 ML VIAL IV SCH (08:52)
[2020-01-16] MEDS ORDERED: HYDROcodone/APAP 5-325MG 1 EACH TAB PO PRN (09:29)
[2020-01-16 13:17] VITALS: BP 144/99; PULSE 63; RESP 18; TEMP 98.8
--- NOTE | 2020-01-16 13:39 | P.DS ---
Providers Date of admission: 01/10/20 04:51 Expected date of discharge: 01/16/20 Attending physician: Rickey Mao Consults: 01/10/20 09:23 Consult Physician Routine Consulting Provider: Koko Mcnulty Consult Reason/Comments: medical management Do you want consulting provider notified?: Yes 01/10/20 11:19 Consult Physician Routine Consulting Provider: Neha Pena Consult Reason/Comments: perforated divertiuclum Do you want consulting provider notified?: Yes Primary care physician: Koko Mcnulty MD Hospital Course: Discharge diagnosis 1. Perforated diverticulitis status post sigmoid colectomy, takedown of splenic flexure and and colostomy 2. History of diverticulitis with noncompliance with antibiotic treatment Hospital course This is a 30-year-old male who was diagnosed with diverticulitis in the beginning of December. He reports his been noncompliant with his antibiotic treatment for the diverticulitis. He initially had felt better for a short baudilio od of time but then developed left lower quadrant pain that had progressively worsened. Patient was reporting his pain 11 out of 10. The pain was in the left lower quadrant radiating to the groin. He had decrease in appetite and was feeling nauseated. No vomiting. No change in bowel movements. He denies any fever, chills or sweats. Patient was found to have diverticulitis with small peridiverticular phlegmon that is posterior to the proximal sigmoid colon noted on CAT scan. He underwent sigmoid colectomy, takedown of splenic flexure and and colostomy. As tolerated surgery well. He is tolerating his diet. His stool through his colostomy. His been up and ambulating. He is stable for discharge today. Please refer to chart for any further details. Physician Teacher [employer] note has been reviewed by physician. Signing provider agrees with the documented findings, assessment, and plan of care. Patient Condition at Discharge: Stable Plan - Discharge Summary Discharge Rx Participant: No New Discharge Prescriptions: New Docusate [Colace] 100 mg PO BID #30 capsule metroNIDAZOLE [Flagyl] 500 mg PO TID #21 tab Levofloxacin [Levaquin] 500 mg PO DAILY 7 Days #7 tab Hydrocodone/Acetaminophen [[place] 5-325] 1 tab PO Q6HR PRN 3 Days #12 tab PRN Reason: Pain Discharge Medication List Docusate [Colace] 100 mg PO BID #30 capsule 01/16/20 [Rx] Hydrocodone/Acetaminophen [[place] 5-325] 1 tab PO Q6HR PRN 3 Days #12 tab 01/16/20 [Rx] Levofloxacin [Levaquin] 500 mg PO DAILY 7 Days #7 tab 01/16/20 [Rx] metroNIDAZOLE [Flagyl] 500 mg PO TID #21 tab 01/16/20 [Rx] Follow up Appointment(s)/Referral(s): Koko Mcnulty MD [Primary Care Provider] - 1-2 days [facility], [NON-STAFF] - 1 Week Rickey Mao MD [STAFF PHYSICIAN] - 1 Week Patient Instructions/Handouts: How to Stop Smoking (GEN), Diverticulitis (GEN), Colostomy Care (GEN) Activity/Diet/Wound Care/Special Instructions: Colosotmy Care Recommendations for Home: Mr Mendoza will receive osotmy care products from the hospital for three pocuhing system changes Last Pouching system change: Home with: Mr Mendoza is to empty the pouching system when the pouch reaches 1/2 to 1/3 full in the bathroom Mr Mendoza is to change the entire pouching system every 3-5 days Home Health please assist Mr Mendoza to arrange for disposable puching system in 2 weeks after discharge from the hospital No driving while taking [place] No lifting over 10 pounds You may shower. No soaking or tub baths for 2 weeks Very light activity until you are reevaluated at your follow up appointment with your surgeon Discharge Disposition: HOME WITH HOME HEALTH SERVICES
--- NOTE | 2020-01-16 14:12 | PN ---
PROGRESS NOTE DATE OF SERVICE: 01/16/2020 REASON FOR FOLLOWUP: Perforated sigmoid diverticulitis, abdominal abscess. INTERVAL HISTORY: Patient is currently afebrile, has been breathing comfortably. Denies having any chest pain. No shortness of breath, no cough, no nausea, no vomiting. No abdominal pain, did have output in his colostomy bag. PHYSICAL EXAMINATION: Blood pressure 144/99 with a pulse of 50, temperature 98.8, he is 98% room air. General description is a middle-aged male up in the bed, in no distress. RESPIRATORY SYSTEM: Unlabored breathing, clear to auscultation anteriorly. HEART: S1, S2. Regular rate and rhythm. ABDOMEN: Soft, no tenderness. LABS: Hemoglobin is 11.9, white count 6.2, BUN of 2, creatinine 0.63. DIAGNOSTIC IMPRESSION AND PLAN: Patient with abdominal abscess from perforated sigmoid diverticulitis. Culture has been positive with E coli, Enterococcus, anaerobes. Plan is to finish therapy with oral Levaquin and Flagyl for about a week and close outpatient followup. Questions and concerns were answered. MMODL / IJN: [id number] /
[2020-01-16] MEDS ORDERED: POTASSIUM CHLORIDE ER 20 MEQ TAB.ER PO STA (15:10)
[2020-01-16] MEDS ORDERED: lisinopriL 5 MG TAB PO STA (15:10)
[2020-01-16] MEDS ORDERED: lisinopriL 10 MG TAB PO STA (15:10)
--- NOTE | 2020-01-16 15:13 | P.PN ---
Subjective Progress Note Date: 01/16/20 HISTORY OF PRESENT ILLNESS This is a 30-year-old male patient of Dr. Mcnulty with past medical history of bipolar disorder, tobacco use and daily marijuana use. Patient in itially presented to [facility] on November 24 for right lower quadrant abdominal pain. CAT scan of the abdomen and pelvis with contrast at that time revealed normal appendix. No sign of acute abdomen and pelvis. No cause for right lower quadrant pain. Mild sigmoid diverticulosis. He was discharged home with planned follow-up with his PCP. Patient again presented on December 08 at which time he had left lower quadrant pain, leukocytosis of 11.6, afebrile. Patient was started on Augmentin and advised a clear liquid diet followed by low fiber and then high-fiber diet. Patient was seen in the office by Dr. Gil approximately 2 weeks ago and at that time he fe lt well. He states he had some dull pain but was significantly improved. Patient states that he forgot to take some of his medication consistently and Dr. Mao reports the patient only took 2 tablets of his antibiotics. Over the course, patient states he has had some occasional stomach upset. He was doing fairly well until last evening when he was playing videogames he thought he was needed to have a bowel movement and sat on the toilet the pain eventually went away. He did have a previous bowel movement about 1 hour before the pain started which was normal and he has had troubles with constipation. He denies having any diarrhea and no blood in the stools. He then went back to playing videogames and the pain returned stabbing type pain that was more severe and he came into the hospital for evaluation. He was found to have W BC of 9.2, hemoglobin 14.7. Electrolytes and renal function normal. Liver function normal. Blood pressure initially 151/103. CAT scan of the abdomen and pelvis with contrast revealed sigmoid diverticulosis with focal diverticulitis and small . Diverticular phlegmon that is posterior to the proximal sigmoid colon. No drainable fluid collection. Diverticulitis is new compared to old exam. Normal appendix. Patient was admitted to Dr. Simental. We have added IV Zosyn and consult with infectious disease, Dr. Pena. At the time of evaluation, patient states that his pain is a number for rest but it goes much higher when he moves or gets up to the bathroom. 01/10: Yesterday afternoon, patient underwent sigmoid colectomy, takedown splenic flexure and and colostomy for perforated diverticulitis. Patient denies having any nausea vomiting. He is currently on epidural for pain control. Patient states that his pain is controlled at this time. He does have some left upper quadrant tenderness. Russo catheter in place with adequate urine output. Patient is afebrile, heart rate 91, blood pressure 132/74, pulse ox 92% on room air. A repeat blood work reveals WBC 10.3, hemoglobin 12.9, sodium 134, blood sugar 130, creatinine 0.73. IV fluids will be changed to 0.9 normal saline at 75 mL per hour. Patient is reaching 1500 ML's on incentive spirometry. 01/11: Patient has been afebrile, heart rate 89, blood pressure 102/82, pulse ox 92% on room air. Repeat blood work reveals WBC 9.4, hemoglobin 11.7, platelet count 217. Patient is continued on Zosyn as advised by Dr. Pena. Wound cultures gram-negative bacilli. Blood culture no growth. Patient has epidural in place and Russo catheter. Patient states that his pain is currently controlled. He has some mild hematuria in Russo bag. Currently does not have any output and ostomy. He is complaining of some new pain on the right border of the incision line. 01/12: Patient remains afebrile. Pulse 82, respirations 17, blood pressure 145/95. Epidural may be DC'd. Full catheter may be DC'd. Patient small amount of drainage noted in the ostomy bag. He does have positive positive bowel sounds. Incisional dressing shows positive dark drainage to the distal portion. Asians states that his pain has been well controlled. Patient continues to feel bloated. 01/13: Patient is found lying in bed sleeping. Patient states that he is having difficulty sleeping due to abdominal discomfort and noise in the evening. Patient is unable to take any oral medications at this time due to diet restrictions. Patient has stool noted in his ostomy that is solid and liquid. Patient continues to have positive bowel sounds. 01/14: Patient is sitting in continuing to have pain in his coronaries. Patient did have an episode of coughing that caused some lightheadedness. Patient has been to a clear liquid diet and is tolerating well. Patient was able to sleep better last night. Patient is able to pass gas. Patient has been afebrile. Blood pressure 150/92, heart rate 72, respirations 20, pulse ox 96%. 01/15: Patient denies any new complaints today. He denies having any significant pain. He is tolerating full liquid diet. He is having a bowel movement. Anticipate he will be discharged once seen by general surgery today. Patient has been afebrile, heart rate 65, blood pressure 143/101, pulse ox 95% on room air. Lisinopril will be added and prescription sent to his home pharmacy. Abdominal wound cultures positive for E. coli and group D non-enterococcus, anaerobic gram-negative bacilli. Blood culture no growth at 144 hours. Patient is cleared for medicine for discharge home with plan for follow-up with Dr. Mcnulty as an outpatient. REVIEW OF SYSTEMS Constitutional: No fever, no chills, no night sweats. No weight change. No wea kness, fatigue or lethargy. No daytime sleepiness. EENT: No headache. No blurred vision or double vision, no loss of vision. No loss of Hearing, no ringing in the ears, no dizziness. No nasal drainage or congestion. No epistaxis. No sore throat. Lungs: No shortness of breath, cough, no sputum production. No wheezing. Cardiovascular: No chest pain, no lower extremity edema. No palpitations. No paroxysmal nocturnal dyspnea. No orthopnea. No lightheadedness or dizziness. No syncopal episodes. Abdominal: Reports minimal abdominal pain. Reports occasional nausea, denies vomiting. No diarrhea. Reports no stooling. No bloody or tarry stools, reports loss of appetite. Genitourinary: No dysuria, increased frequency, urgency. No urinary retention. Musculoskeletal: No myalgias. No muscle weakness, no gait dysfunction, no frequent falls. No back pain. No neck pain. Integumentary: No wounds, no lesions. No rash or pruritus. No unusual bruising. No change in hair or nails. Neurologic: No aphasia. No facial droop. No change in mentation. No head injury. No headache. No paralysis. No paresthesia. Psychiatric: No depression. No anxiety. No mood swings. Endocrine: No abnormal blood sugars. No weight change. No excessive sweating or thirst. No cold intolerance. PHYSICAL EXAMINATION Gen: This is obesity 1-year-old male. He is resting in bed and appears to be comfortable. HEENT: Head is atraumatic, normocephalic. Pupils equal, round. Sclerae is anicteric. NECK: Supple. No JVD. No lymphadenopathy. No thyromegaly. LUNGS: Clear to auscultation. No wheezes or rhonchi. No intercostal retractions. HEART: Regular rate and rhythm. No murmur. ABDOMEN: Soft. Obese. Bowel sounds are present. Generalized left upper quadrant tenderness. Ostomy to the left side with stool. Russo has been removed. EXTREMITIES: No pedal edema. No calf tenderness. Dorsalis pedis +2 bilaterally. NEUROLOGICAL: Patient is awake, alert and oriented x3. Cranial nerves 2 through 12 are grossly intact. ASSESSMENT AND PLAN 1. Perforated diverticulitis with suspected peritonitis and acute abdomen status post sigmoid colectomy, takedown splenic flexure and and colostomy. Continue Zosyn and consult Dr. Pena. 2. Suspected peritonitis. Continue Zosyn. 3. Tobacco use and dependence. Nicotine patch. 4. Bipolar disorder, stable. Patient not currently on medication. 5. Daily marijuana use. 6. Gastrointestinal prophylaxis. Protonix 40 mg IV daily. 7. DVT prophylaxis. Heparin subcu. 8. Hypertension. Patient started on lisinopril 10 mg daily. Discharge plan: Return home Impression and plan of care have been directed as dictated by the signing physician. Suzanna Wills nurse practitioner acting as scribe for signing physician. Objective - Vital Signs Vital signs: Vital Signs Temp 97.9 F 01/16/20 04:52 Pulse 65 01/16/20 04:52 Resp 16 01/16/20 04:52 BP 143/101 01/16/20 04:52 Pulse Ox 95 01/16/20 04:52 Intake & Output 01/15/20 01/16/20 01/16/20 18:59 06:59 18:59 Output Total 525 Balance -525 Output: Urine 525 Other: Voiding Method Toilet Toilet # Voids 2 - Labs CBC & Chem 7: 01/14/20 05:56 01/14/20 05:56 Labs: Microbiology - Last 24 Hours (Table) 01/10/20 06:20 Blood Culture - Preliminary Blood No Growth after 120 hours
[2020-01-17] MEDS ORDERED: PANTOPRAZOLE 40 MG TABLET PO SCH (07:30)
== END 2020-01-16 18:14 | disposition home health service (06) | DRG 329 ==
LOC: EC 03:49 → 5NMEDONC 04:51 → 6NMEDSUR 08:54
PROVIDERS: ADMIT Surgery; ATTEND Surgery
PROC: 0DBN0ZZ Excision of Sigmoid Colon, Open Approach (ICD-10-PCS; principal; 2020-01-10 09:30)
PROC: 0D1N0Z4 Bypass Sigmoid Colon to Cutaneous, Open Approach (ICD-10-PCS; principal; 2020-01-10 09:30)
DX: K57.20 Diverticulitis of large intestine with perforation and abscess without bleeding (principal); K65.1 Peritoneal abscess; F31.9 Bipolar disorder, unspecified; E66.01 Morbid (severe) obesity due to excess calories; F41.9 Anxiety disorder, unspecified; F17.210 Nicotine dependence, cigarettes, uncomplicated; I10 Essential (primary) hypertension; B96.20 Unspecified Escherichia coli [E. coli] as the cause of diseases classified elsewhere; Z71.3 Dietary counseling and surveillance; Z71.6 Tobacco abuse counseling; Z68.39 Body mass index [BMI] 39.0-39.9, adult; Z91.14 Patient's other noncompliance with medication regimen; Z98.890 Other specified postprocedural states; Z91.030 Bee allergy status; Z91.018 Allergy to other foods; Z82.49 Family history of ischemic heart disease and other diseases of the circulatory system; Z81.8 Family history of other mental and behavioral disorders; Z83.79 Family history of other diseases of the digestive system; Z82.79 Family history of other congenital malformations, deformations and chromosomal abnormalities
CPT/HCPCS: 74177; 80048; 80053; 82150; 83690; 83735; 84100; 85025; 85027; 87040; 87070; 87075; 87077; 87186; 87205; 88307; 96361; 96365; 96375; 99285

== ENCOUNTER → 2020-02-27 | Outpatient (CLI) | payer OTHER ==
[~2020-02-27] MED LIST: SODIUM CHLORIDE 0.9% 500 ML 500 ML in EMPTY BAG 1 BAG IV PRN
[2020-02-27 12:25] VITALS: BP 153/91; RESP 16; TEMP 97.9
== END | disposition home or self-care (01) ==
LOC: PROCWHC3 11:52
PROVIDERS: ATTEND Internal Medicine
DX: K94.00 Colostomy complication, unspecified (principal)
CPT/HCPCS: 99213

== ENCOUNTER → 2020-04-17 | Outpatient (CLI) | payer OTHER ==
[2020-04-17 14:55] LABS: HCT 50.1 % (39.0-53.0); HGB 17.1 gm/dL (13.0-17.5); MCH 29.6 pg (25.0-35.0); MCHC 34.2 g/dL (31.0-37.0); MCV 86.6 fL (80.0-100.0); Mean Platelet Volume 7.4; Platelet Count 282 k/uL (150-450); RBC 5.79 m/uL (4.30-5.90); RDW 12.1 % (11.5-15.5); WBC 7.2 k/uL (3.8-10.6)
[2020-04-17 15:20] LABS: Potassium 4.5 mmol/L (3.5-5.1)
== END | disposition home or self-care (01) ==
LOC: LABPAT 13:52
PROVIDERS: ATTEND Surgery
DX: Z01.818 Encounter for other preprocedural examination (principal); K57.33 Diverticulitis of large intestine without perforation or abscess with bleeding
CPT/HCPCS: 80051; 85027

== ENCOUNTER → 2020-04-23 | Day surgery (SDC) | payer OTHER ==
[2020-04-19 16:06] VITALS: BMI 39.9
[~2020-04-23] MED LIST changes: +LACTATED RINGERS 1,000 ML IV SCH; +LIDOCAINE 1% (10MG/ML) FOR IV START INTRADERMA PRN; +MIDAZOLAM 2 MG/2 ML VIAL ONE; +PROPOFOL 10 MG/ML 20 ML VIAL IV ONE; -SODIUM CHLORIDE 0.9% 500 ML 500 ML in EMPTY BAG 1 BAG IV PRN
[2020-04-23 12:20] VITALS: TEMP 98.5
--- NOTE | 2020-04-23 12:45 | P.GSHP ---
History of Present Illness H&P Date: 04/23/20 Chief Complaint: History of diverticulosis This is a 28-year-old male with previous history of perforated diverticulitis. Patient resents today for colonoscopy. Undergoing reversal colostomy in the a.m. Past Medical History Past Medical History: Osteoarthritis (OA) Additional Past Medical History / Comment(s): diverticulitis, colostomy, hx of HTN in past, no current meds History of Any Multi-Drug Resistant Organisms: None Reported Past Surgical History: Orthopedic Surgery Additional Past Surgical History / Comment(s): colostomy 01/10/20, Right knee ACL repair, fatty tumor removed left leg Past Anesthesia/Blood Transfusion Reactions: Previous Problems w/ Anesthesia Additional Past Anesthesia/Blood Transfusion Reaction / Comment(s): states "took a long time to wake up" Smoking Status: Current some day smoker - Past Family History Father History Unknown: Yes Additional Family Medical History / Comment(s): Pt does not know his father very well. Mother Family Medical History: Hypertension Additional Family Medical History / Comment(s): Gallbladder dx with jaundice/bile duct stones/jaundice, depression/anxiety. Medications and Allergies Home Medications Medication Instructions Recorded Confirmed Type Docusate [Colace] 100 mg PO BID #30 capsule 01/16/20 04/23/20 Rx Multivitamin [Multivitamins Adult 1 tab PO DAILY 02/27/20 04/23/20 History Gummies] Allergies Allergy/AdvReac Type Severity Reaction Status Date / Time bee venom protein (honey bee) Allergy Dyspnea Verified 04/23/20 12:06 CILANTRO Allergy Swelling Uncoded 04/23/20 12:06 Surgical - Exam Vital Signs Temp Pulse BP Pulse Ox 98.5 F 79 137/89 96 04/23/20 12:18 04/23/20 12:18 04/23/20 12:18 04/23/20 12:18 - General well developed, well nourished, no distress - Eyes PERRL - ENT normal pinna - Neck no masses - Respiratory normal expansion - Cardiovascular Rhythm: regular - Abdomen Abdomen: soft, non tender Assessment and Plan Assessment: History of peptic colitis. We'll perform colonoscopy.
--- NOTE | 2020-04-23 12:58 | P.OP ---
Date of Procedure: 04/23/20 Preoperative Diagnosis: History of perforated diverticulitis Postoperative Diagnosis: Diverticulitis Procedure(s) Performed: Colonoscopy Anesthesia: MAC Surgeon: Rickey Mao Pathology: none sent Condition: stable Disposition: PACU Description of Procedure: The patient's placed on the endoscopy table in the lateral position. He received IV sedation. Digital rectal exam performed which revealed no abnormalities. Flexible colonoscope was then placed patient anus and passed throughout the rectal stump. The rectal stump and contained a large amount of stool within it. The rectal stump measured approximately 5 cm length. This point scope withdrawn. Next few the colostomy the clot scope was placed the patient's colon passed throughout the colon. The ileocecal valve could not be visualized secondary large liquid stool. Scope was then withdrawn. Mainer of the ascending colon transverse colon and descending colon appeared normal. The scope was withdrawn for patient.
[2020-04-23 13:21] VITALS: PULSE 73; RESP 16
[2020-04-23 14:10] VITALS: BP 113/77
== END | disposition home or self-care (01) ==
LOC: ORWHC2ENDO 11:41
PROVIDERS: ATTEND Surgery
DX: K57.32 Diverticulitis of large intestine without perforation or abscess without bleeding (principal); Z93.3 Colostomy status; I10 Essential (primary) hypertension; M19.90 Unspecified osteoarthritis, unspecified site; F41.9 Anxiety disorder, unspecified; F32.9 Major depressive disorder, single episode, unspecified; F17.200 Nicotine dependence, unspecified, uncomplicated; Z79.899 Other long term (current) drug therapy; Z91.030 Bee allergy status; Z91.048 Other nonmedicinal substance allergy status; Z98.890 Other specified postprocedural states; Z82.49 Family history of ischemic heart disease and other diseases of the circulatory system; Z81.8 Family history of other mental and behavioral disorders
CPT/HCPCS: 44388; J2250; J2704

== ENCOUNTER 2020-04-24 08:30 | Inpatient (IN) | payer OTHER ==
[~2020-04-24 08:30] MED LIST changes: +ACETAMINOPHEN TAB 500 MG TAB PO PRN; +DEXAMETHASONE SOD PHOSPHATE 4 MG/ML 1 ML VIAL IV ONE; +HEPARIN SODIUM,PORCINE 5,000 UNIT/ML 1 ML VIAL SQ PRN; -LIDOCAINE 1% (10MG/ML) FOR IV START INTRADERMA PRN; +MIDAZOLAM 2 MG/2 ML VIAL IV PRN; -MIDAZOLAM 2 MG/2 ML VIAL ONE; +ONDANSETRON 4 MG/2 ML VIAL IVP ONE; -PROPOFOL 10 MG/ML 20 ML VIAL IV ONE
--- NOTE | 2020-04-24 12:07 | P.GSHP ---
History of Present Illness H&P Date: 04/24/20 Chief Complaint: Perforated diverticula this This is a 30-year-old male who presents today for reversal colostomy. Patient's previous history of perforated diverticulitis. Past Medical History Past Medical History: Osteoarthritis (OA) Additional Past Medical History / Comment(s): diverticulitis, colostomy, hx of HTN in past, no current meds History of Any Multi-Drug Resistant Organisms: None Reported Past Surgical History: Orthopedic Surgery Additional Past Surgical History / Comment(s): colostomy 01/10/20, Right knee ACL repair, fatty tumor removed left leg Past Anesthesia/Blood Transfusion Reactions: Previous Problems w/ Anesthesia Additional Past Anesthesia/Blood Transfusion Reaction / Comment(s): states "took a long time to wake up" Smoking Status: Current some day smoker - Past Family History Father History Unknown: Yes Additional Family Medical History / Comment(s): Pt does not know his father very well. Mother Family Medical History: Hypertension Additional Family Medical History / Comment(s): Gallbladder dx with jaundice/bile duct stones/jaundice, depression/anxiety. Medications and Allergies Home Medications Medication Instructions Recorded Confirmed Type Docusate [Colace] 100 mg PO BID #30 capsule 01/16/20 04/24/20 Rx Multivitamin [Multivitamins Adult 1 tab PO DAILY 02/27/20 04/24/20 History Gummies] Allergies Allergy/AdvReac Type Severity Reaction Status Date / Time bee venom protein (honey bee) Allergy Dyspnea Verified 04/24/20 10:43 CILANTRO Allergy Swelling Uncoded 04/24/20 10:43 Surgical - Exam Vital Signs Temp Pulse Resp BP Pulse Ox 97 F L 82 16 155/82 94 L 04/24/20 10:44 04/24/20 10:44 04/24/20 10:44 04/24/20 10:44 04/24/20 10:44 - General well developed, well nourished, no distress - Eyes PERRL - ENT normal pinna - Neck no masses - Respiratory normal expansion - Cardiovascular Rhythm: regular - Abdomen Colostomy left lower quadrant Abdomen: soft, non tender Assessment and Plan Assessment: History of perforated diverticulitis. Patient will undergo reversal of colostomy. He is aware the risks of surgery including wound infection anastomotic leak and bleeding
[2020-04-24] MEDS ORDERED: ALVIMOPAN 12 MG CAPSULE PO ONE (12:09)
[2020-04-24] MEDS ORDERED: NALOXONE 0.4 MG/ML 1 ML VIAL IV PRN (12:17)
[2020-04-24] MEDS ORDERED: HYDROmorphone (PF) 1 MG/ML ONE (13:06)
[2020-04-24] MEDS ORDERED: ROCURONIUM 10 MG/ML (10 ML VIAL) IV ONE (13:06)
[2020-04-24] MEDS ORDERED: SUCCINYLCHOLINE CHLORIDE VIAL 200 MG/10 ML VIAL IV ONE (13:06)
[2020-04-24] MEDS ORDERED: NEOSTIGMINE 1 MG/ML 10 ML VIAL ONE (13:06)
[2020-04-24] MEDS ORDERED: GLYCOPYRROLATE 0.2 MG/ML 2 ML VIAL ONE (13:06)
[2020-04-24] MEDS ORDERED: MIDAZOLAM 2 MG/2 ML VIAL ONE (13:06)
[2020-04-24] MEDS ORDERED: fentaNYL (PF) 50 MCG/ML 2 ML AMP ONE (13:06)
[2020-04-24] MEDS ORDERED: LIDOCAINE 1% INJ 10MG/ML (20 ML MDV) ONE (13:06)
[2020-04-24] MEDS ORDERED: PROPOFOL 10 MG/ML 20 ML VIAL IV ONE (13:06)
[2020-04-24] MEDS: ceFAZolin 3 GM in SODIUM CHLORIDE 0.9% 100 ML IVPB PRN ×2 (13:17→13:26)
[2020-04-24] MEDS: metroNIDAZOLE-NS PMX 500 MG in SALINE 1 100ML.BAG IVPB PRN ×2 (13:26→13:50)
--- NOTE | 2020-04-24 13:58 | P.ANPRN ---
Procedure Note - Anesthesia - Epidural/Spinal Spinal Continuous Time Out Performed: Yes Date of Procedure: 04/24/20 Procedure Start Time: 11:01 Procedure Stop Time: 11:09 Location of Patient: PreOp Indication: Acute Post-Operative Pain Sedation Type: Sedate with meaningful contact maintained Preparation: Sterile Dressing Position: Sitting Catheter: Indwelling Needle Guage: 18 Injectate: Test Dose Lidocaine1.5% w/1:200,000 epi Blood Aspirated: No Pain Paresthesia on Injection Noted: No Events: Uneventful and Well Tolerated (test dose 3cc given)
[2020-04-24] MEDS ORDERED: LACTATED RINGERS 1,000 ML IV ONE ×2 (14:02→16:39)
[2020-04-24] MEDS ORDERED: METOCLOPRAMIDE 5 MG/ML 2 ML VIAL IVP PRN (15:15)
[2020-04-24] MEDS ORDERED: BENZOCAINE/MENTHOL LOZENG 1 EACH LOZENGE MUCOUS MEM PRN (15:15)
[2020-04-24] MEDS: ROPIVACAINE 250 MG, HYDROMORPHONE (PF) 5 MG in SODIUM CHLORIDE 0.9% 200 ML EPIDURAL PRN ×3 (15:16→16:15)
[2020-04-24] MEDS: fentaNYL (PF) 50 MCG/ML 2 ML AMP IVP ONE ×2 (15:34→15:47)
[2020-04-24] MEDS: ONDANSETRON 4 MG/2 ML VIAL IVP PRN (15:40)
[2020-04-24] MEDS ORDERED: LABETALOL SYRINGE 5 MG/ML IVP ONE (16:19)
[2020-04-24] MEDS: D5-0.45% NACL WITH KCL 20MEQ/L 1,000 ML IV SCH (17:35)
--- NOTE | 2020-04-24 18:08 | P.OP ---
Date of Procedure: 04/24/20 Preoperative Diagnosis: History of perforated diverticulitis Postoperative Diagnosis: History of perforated diverticulitis Procedure(s) Performed: Reversal of colostomy Incision hernia repair Partial omentectomy Anesthesia: OSMAN Surgeon: Rickey Mao Estimated Blood Loss (ml): 25 Pathology: other (colon) Condition: stable Disposition: PACU Description of Procedure: The patient's placed on the operative table in the supine position. He received general anesthesia. He was placed in dorsal lithotomy position his abdomen was prepped and draped usual sterile fashion. The abdomen was entered through a midline incision. There adhesions to the anterior abdominal wall. The lysis sharp dissection. The colostomy was then transected at the fascial level using GAYE stapler. The omentum was then dissected off the transverse colon. And then the colon appeared to have enough length to the sigmoid colon. At this point a [id number] functional end-to-end staple anastomosis was created between the proximal and distal colon. 3-0 GI silk sutures used as a crotch stitch. The GAYE stapler was used for the anastomosis and then the colotomy was oversewn using 3-0 GI silk suture and 3-0 Prolene suture. The omentum appeared ischemic. Portion of omentum was dissected with the Enseal device sent to pathology The abdomen was irrigated and no bleeding was seen. seen. The fascia was closed with looped #1 PDS suture. The incisional hernia was repaired during fascial closure. Skin was closed joe. Patient top she will was sent to recovery room stable condition.
--- NOTE | 2020-04-24 21:44 | P.CONS ---
History of Present Illness - Reason for Consult Consult date: 04/24/20 Medical management Requesting physician: Rickey Mao - Chief Complaint Reverse her colostomy, severe diverticulitis, history of osteoarthritis, - History of Present Illness 30-year-old male one of our office patient with past medical history of diverticulitis post perforated diverticuli with peritonitis ended up going to the OR with Dr. Mao had partial colectomy and who was hospitalized 01/10/2024 rupture diverticuli and peritonitis ended up going for surgery for right sided colectomy and colostomy. Patient was on antibiotics his symptoms improve patient was seen Dr. Mao earlier and schedule elective reversal colostomy which was done today successfully with no major complication patient was admitted to the floor afterward med reconsultation were done, pain is under control, patient hemodynamic status is Stable with no major abnormality. Patient was hospitalized after surgery Review of Systems CONSTITUTIONAL: Well-developed no acute respiratory distress. Morbidly obese EYES: No icterus sclerae, no conjunctivitis. EARS, NOSE, MOUTH, THROAT, and FACE: No sore throat, lymphadenopathy, carotid bruits or deformity. RESPIRATORY: Mild congestion with shortness of breath no cough or wheezes. CARDIOVASCULAR: No CP, Palpitation, PND, Orthopnea, or angina. GASTROINTESTINAL: Incision from colostomy looks good Incision does not have any bleeding or hematoma GENITOURINARY: Negative for Hematuria or UTI, no kidney stones. INTEGUMENT/BREAST: Negative for any muscular injury with mild osteoarthritis.. HEMATOLOGIC/LYMPHATIC: Negative for bleed or purpura. MUSCULOSKELTAL: Negative for Myalgia or arthralgia. NEURLOGICAL: No LOC, Sz or syncope, blurred vision dizziness or abnormality.. BEHAVIORAL/PSYCH: Negative. ENDOCRINE: Negative. Past Medical History Past Medical History: Osteoarthritis (OA) Additional Past Medical History / Comment(s): diverticulitis, colostomy, hx of HTN in past, no current meds History of Any Multi-Drug Resistant Organisms: None Reported Past Surgical History: Orthopedic Surgery Additional Past Surgical History / Comment(s): colostomy 01/10/20, Right knee ACL repair, fatty tumor removed left leg Past Anesthesia/Blood Transfusion Reactions: Previous Problems w/ Anesthesia Additional Past Anesthesia/Blood Transfusion Reaction / Comm: states "took a long time to wake up" Past Psychological History: Anxiety, Depression Additional Psychological History / Comment(s): . Smoking Status: Current some day smoker Past Alcohol Use History: Rare Additional Past Alcohol Use History / Comment(s): trying to quit, states none in past 2 weeks, Pt started smoking in 2001 and was a ppd smoker. Past Drug Use History: Marijuana Additional Drug Use History / Comment(s): Pt states he smokes marijuana daily. instructed to hold 24 hrs prior to procedure - Past Family History Father History Unknown: Yes Additional Family Medical History / Comment(s): Pt does not know his father very well. Mother Family Medical History: Hypertension Additional Family Medical History / Comment(s): Gallbladder dx with jaundice/bile duct stones/jaundice, depression/anxiety. Medications and Allergies Home Medications Medication Instructions Recorded Confirmed Type Docusate [Colace] 100 mg PO BID #30 capsule 01/16/20 04/24/20 Rx Multivitamin [Multivitamins Adult 1 tab PO DAILY 02/27/20 04/24/20 History Gummies] Allergies Allergy/AdvReac Type Severity Reaction Status Date / Time bee venom protein (honey bee) Allergy Dyspnea Verified 04/24/20 10:43 CILANTRO Allergy Swelling Uncoded 04/24/20 10:43 Physical Exam Vitals: Vital Signs Temp Pulse Pulse Resp BP BP Pulse Ox 04/24/20 16:30 86 16 155/88 98 04/24/20 16:15 98 16 174/93 96 04/24/20 16:00 78 16 167/91 96 04/24/20 15:45 78 16 178/96 97 04/24/20 15:30 82 18 176/95 95 04/24/20 15:16 98.2 F 77 16 186/98 94 L 04/24/20 10:44 97 F L 82 16 155/82 94 L Intake and Output 04/24/20 04/24/20 04/24/20 06:59 14:59 22:59 Intake Total 1400 812 Output Total 490 Balance 1400 322 Intake: IV 1400 812 Output: Urine 440 Estimated Blood Loss 50 Other: Weight 137 kg General Appearance: Alert, cooperative, no distress, moderately overweight Neck HEENT: Supple, no lymphadenopathy, no thyroid enlargement, no carotid bruits. Lungs: Clear to auscultation without crackles or wheezes no rhonchi, no deformity. Chest Wall: Chest wall normal expansion with deep inspiration no tenderness and no deformity was found on exam, no costochondral pain or discomfort. Heart: Regular rate and rhythm, S1, S2 normal, no murmur, rub or gallop. Back: Symmetric, no curvature, ROM normal, no CVA tenderness. Abdomen: Soft no bowel sounds incision in midline and the ostomy reversal site looks fine with no hematoma or bleeding. Extremities: Extremities normal, atraumatic, no cyanosis or edema. Pulses: 2+ and symmetric. Skin: Skin color, texture, tugor normal, no rashes or lesions. Neurologic: Alert oriented x3 cranial nerves II through XII intact, no motor deficit, no abnormal balance or gait. Assessment and Plan Assessment: 1 post reversal colostomy: Patient is doing well so far no NG tube pain is under control patient is hemodynamically stable. 2 history of bipolar disorders: Patient has not been taking any medication. 3 history of tobacco use, continue nicotine patch. 4 elevated blood pressure: Remain on diet control for systolic is above 140 small dose of calcium channel trudi can be use or use clonidine patch. 5 GI prophylaxis: Continue Protonix 40 mg daily. 6 DVT prophylaxis: Continue SCD along with LACY urena.. CODE STATUS: Full code. Dr. Mao thank you much for the consult if I can be any further help to please let me know.
[2020-04-25] MEDS: D5-0.45% NACL WITH KCL 20MEQ/L 1,000 ML IV SCH ×3 (00:16→16:54)
[2020-04-25] MEDS: ONDANSETRON 4 MG/2 ML VIAL IVP PRN ×2 (03:38→10:26)
[2020-04-25 06:22] LABS: Basophils % (A) 0 %; Eosinophils % (A) 0 %; HCT 44.5 % (39.0-53.0); HGB 14.9 gm/dL (13.0-17.5); Lymphocytes # (A) 1.6 k/uL (1.0-4.8); Lymphocytes % (A) 15 %; MCH 29.4 pg (25.0-35.0); MCHC 33.4 g/dL (31.0-37.0); MCV 87.9 fL (80.0-100.0); Mean Platelet Volume 7.1; Monocytes # (A) 0.8 k/uL (0-1.0); Monocytes % (A) 8 %; Neutrophils # (A) 7.8 k/uL (1.3-7.7); Neutrophils % (A) 75 %; Platelet Count 271 k/uL (150-450); RBC 5.07 m/uL (4.30-5.90); RDW 11.9 % (11.5-15.5); WBC 10.4 k/uL (3.8-10.6)
[2020-04-25] MEDS ORDERED: NALBUPHINE 10 MG/ML (1 ML AMP) IV PRN (08:33)
[2020-04-25] MEDS ORDERED: diphenhydrAMINE 50 MG/ML 1 ML VIAL IVP PRN (08:33)
--- NOTE | 2020-04-25 08:33 | P.PN ---
Progress Note - Text Progress Note Date: 04/25/20 (511) Anesthesia Postop day 1 Status post colostomy reversal with epidural Day 2 Patient seen and examined. Doing well . VAS 5-6 with cough out of 10. Complaining of a mild generalized pruritus of the back of legs and back. Ropivacaine 0.1% with Dilaudid 20 mcg/mL at 12 mL an hour. Objective: Vital signs reviewed Lungs: Good chest excursion Abdomen: Appears nondistended Other: Epidural Site Intact without induration. Dressing intact Neuro: No apparent motor block. Sensory within normal limits. Assessment: Status post colostomy reversal postop day 1 Plan: Continue current care with your medical management. Anticipate reevaluation tomorrow.
[2020-04-25] MEDS: ROPIVACAINE 250 MG, HYDROMORPHONE (PF) 5 MG in SODIUM CHLORIDE 0.9% 200 ML EPIDURAL PRN (08:57)
[2020-04-25 10:01] LABS: African American GFR (CKD) 144.7 (60.0-200.0); Anion Gap 6.2 mmol/L (4.00-12.00); BUN/Creat Ratio 11.43 Ratio (12.00-20.00); Carbon Dioxide 26.8 mmol/L (21.6-31.8); Non-African American GFR(CKD) 124.9 (60.0-200.0); Potassium 4.3 mmol/L (3.5-5.5)
--- NOTE | 2020-04-25 12:20 | P.PN ---
Subjective Progress Note Date: 04/25/20 CHIEF COMPLAINT: History of perforated diverticulitis HISTORY OF PRESENT ILLNESS: Patient is postop day #1 status post reversal of colostomy, incision hernia repair, partial omentectomy for history of perforated diverticulitis. Patient has tolerated surgery well. Pain is controlled. Currently has epidural place. He denies any vomiting. He did have nausea. Denies passing any gas or bowel movement. Afebrile. WBC 10.4. Currently nothing by mouth. PHYSICAL EXAM: VITAL SIGNS: Reviewed. GENERAL: Well-developed in no acute distress. HEENT: No sclera icterus. Extraocular movements grossly intact. Moist buccal mucosa. Head is atraumatic, normocephalic. ABDOMEN: Soft. Nondistended. Incisional dressing shows small areas of saturation of blood NEUROLOGIC: Alert and oriented. Cranial nerves II through XII grossly intact. ASSESSMENT: 1. History of perforated diverticulitis status post reversal of colostomy, incision hernia repair, partial omentectomy PLAN: -Keep patient nothing by mouth -Continue epidural for pain control -Continue Zofran as needed for nausea -Continue IV fluids -Encouraged patient to use incentive spirometer and increase activity -GI prophylaxis Protonix and DVT prophylaxis SCDs Physician Speedboat Driver note has been reviewed by physician. Signing provider agrees with the documented findings, assessment, and plan of care. Objective - Vital Signs Vital signs: Vital Signs Temp 98.0 F 04/25/20 08:02 Pulse 102 H 04/25/20 08:02 Resp 93 H 04/25/20 08:02 BP 148/88 04/25/20 08:02 Pulse Ox 93 L 04/25/20 08:02 Intake & Output 04/24/20 04/25/20 04/25/20 18:59 06:59 18:59 Intake Total 2212 Output Total 490 950 Balance 1722 -950 Weight 137 kg Intake: IV 2212 Output: Urine 440 950 Estimated Blood Loss 50 Other: Voiding Method Indwelling Catheter Indwelling Catheter - Labs CBC & Chem 7: 04/25/20 06:02 04/25/20 06:02 Labs: Abnormal Lab Results - Last 24 Hours (Table) 04/25/20 04/25/20 Range/Units 06:02 06:02 Neutrophils # 7.8 H (1.3-7.7) k/uL BUN 8.0 L (9.0-27.0) mg/dL BUN/Creatinine Ratio 11.43 L (12.00-20.00) Ratio Glucose 149 H (70-110) mg/dL
[2020-04-25] MEDS: PANTOPRAZOLE 40 MG/10 ML VIAL IVP SCH (13:59)
--- NOTE | 2020-04-25 15:46 | P.PN ---
Subjective Progress Note Date: 04/25/20 HISTORY OF PRESENT ILLNESS 30-year-old male one of our office patient with past medical history of diverticulitis post perforated diverticuli with peritonitis ended up going to the OR with Dr. Mao had partial colectomy and who was hospitalized 01/10/2024 rupture diverticuli and peritonitis ended up going for surgery for right sided colectomy and colostomy. Patient was on antibiotics his symptoms improve patient was seen Dr. Mao earlier and schedule elective reversal colostomy which was done today successfully with no major complication patient was admitted to the floor afterward med reconsultation were done, pain is under control, patient hemodynamic status is Stable with no major abnormality. Patient was hospitalized after surgery 04/25: Patient states that he had a rough night. He currently has epidural in place and complaining of itching. He has a Russo catheter in place. He is using his incentive spirometry. He is postop day #1 following reversal of colostomy. He is currently nothing by mouth. Patient is afebrile, heart rate 102, blood pressure 148/88, pulse ox 93% on 3 L nasal cannula. CBC is unremarkable. Electrolytes normal, creatinine 0.7. Blood sugar 149. REVIEW OF SYSTEMS CONSTITUTIONAL: Well-developed no acute respiratory distress. Morbidly obese. Denies fevers. EYES: No icterus sclerae, no conjunctivitis. EARS, NOSE, MOUTH, THROAT, and FACE: No sore throat, lymphadenopathy, carotid bruits or deformity. RESPIRATORY: Mild congestion with shortness of breath no cough or wheezes. CARDIOVASCULAR: No CP, Palpitation, PND, Orthopnea, or angina. GASTROINTESTINAL: Incision from colostomy looks good Incision does not have any bleeding or hematoma GENITOURINARY: Negative for Hematuria or UTI, no kidney stones. INTEGUMENT/BREAST: Negative for any muscular injury with mild osteoarthritis.. HEMATOLOGIC/LYMPHATIC: Negative for bleed or purpura. MUSCULOSKELTAL: Negative for Myalgia or arthralgia. NEURLOGICAL: No LOC, Sz or syncope, blurred vision dizziness or abnormality.. BEHAVIORAL/PSYCH: Negative. ENDOCRINE: Negative. PHYSICAL EXAMINATION General Appearance: Alert, cooperative, no distress, moderately overweight Neck HEENT: Supple, no lymphadenopathy, no thyroid enlargement, no carotid bruits. Lungs: Clear to auscultation without crackles or wheezes no rhonchi, no deformity. Chest Wall: Chest wall normal expansion with deep inspiration no tenderness and no deformity was found on exam, no costochondral pain or discomfort. Heart: Regular rate and rhythm, S1, S2 normal, no murmur, rub or gallop. Back: Symmetric, no curvature, ROM normal, no CVA tenderness. Abdomen: Soft no bowel sounds incision in midline and the ostomy reversal site looks fine with no hematoma or bleeding. Extremities: Extremities normal, atraumatic, no cyanosis or edema. Pulses: 2+ and symmetric. Skin: Skin color, texture, tugor normal, no rashes or lesions. Neurologic: Alert oriented x3 cranial nerves II through XII intact, no motor deficit, no abnormal balance or gait. ASSESSMENT AND PLAN 1 post reversal colostomy, postop day #1. Continue current pain management, epidural, Zofran for nausea. Patient has Russo catheter in place, continue incentive spirometry to reduce incidence of atelectasis and hospital acquired pneumonia. 2 history of bipolar disorders: Patient has not been taking any medication. 3 history of tobacco use, continue nicotine patch. 4 elevated blood pressure: Remain on diet control for systolic is above 140 small dose of calcium channel trudi can be use or use clonidine patch. 5 GI prophylaxis: Continue Protonix 40 mg daily. 6 DVT prophylaxis: Continue SCD along with LACY hose.. CODE STATUS: Full code. DISCHARGE PLAN home. Impression and plan of care have been directed as dictated by the signing physician. Suzanna Wills nurse practitioner acting as scribe for signing physician. Objective - Vital Signs Vital signs: Vital Signs Temp 98.0 F 04/25/20 08:02 Pulse 102 H 04/25/20 08:02 Resp 93 H 04/25/20 08:02 BP 148/88 04/25/20 08:02 Pulse Ox 93 L 04/25/20 08:02 Intake & Output 04/24/20 04/25/20 04/25/20 18:59 06:59 18:59 Intake Total 2212 Output Total 490 950 Balance 1722 -950 Weight 137 kg Intake: IV 2212 Output: Urine 440 950 Estimated Blood Loss 50 Other: Voiding Method Indwelling Catheter Indwelling Catheter - Labs CBC & Chem 7: 04/25/20 06:02 04/25/20 06:02 Labs: Abnormal Lab Results - Last 24 Hours (Table) 04/25/20 Range/Units 06:02 Neutrophils # 7.8 H (1.3-7.7) k/uL
[2020-04-25] MEDS ORDERED: ACETAMINOPHEN IV (For NPO) 1,000 MG in EMPTY BAG 1 BAG IVPB PRN (19:33)
[2020-04-25 20:22] LABS: Appearance,Urine Turbid (Clear); Bilirubin,Urine Negative (Negative); Blood,Urine Negative (Negative); Color,Urine Light Orange; Glucose,Urine (UA) Negative (Negative); Ketones,Urine Negative (Negative); Leukocyte Esterase,Urine Moderate (Negative); Mucus,Urine Many /hpf; Nitrite,Urine Negative (Negative); Protein,Urine Trace (Negative); RBC,Urine 3 /hpf (0-5); Specific Gravity,Urine 1.025 (1.001-1.035); Squamous Epithelial Cell,Urine <1 /hpf (0-4); Urobilinogen,Urine <2.0 mg/dL (<2.0); WBC,Urine 8 /hpf (0-5)
[2020-04-25 20:30] LABS: SARS-CoV-2 RNA Rapid Abbott Not Detected (Not Detectd)
[2020-04-26] MEDS: D5-0.45% NACL WITH KCL 20MEQ/L 1,000 ML IV SCH ×4 (00:52→23:25)
[2020-04-26] MEDS: ROPIVACAINE 250 MG, HYDROMORPHONE (PF) 5 MG in SODIUM CHLORIDE 0.9% 200 ML EPIDURAL PRN ×2 (04:06→23:15)
[2020-04-26 09:17] LABS: Basophils # (A) 0.1 k/uL (0-0.2); Basophils % (A) 1 %; Eosinophils # (A) 0.3 k/uL (0-0.7); Eosinophils % (A) 3 %; HCT 40.6 % (39.0-53.0); Lymphocytes # (A) 1.7 k/uL (1.0-4.8); Lymphocytes % (A) 17 %; MCH 30.6 pg (25.0-35.0); MCHC 34.6 g/dL (31.0-37.0); MCV 88.5 fL (80.0-100.0); Mean Platelet Volume 7.4; Monocytes % (A) 10 %; Neutrophils # (A) 6.7 k/uL (1.3-7.7); Neutrophils % (A) 68 %; Platelet Count 207 k/uL (150-450); RBC 4.59 m/uL (4.30-5.90); RDW 11.8 % (11.5-15.5); WBC 9.9 k/uL (3.8-10.6)
[2020-04-26] MEDS ORDERED: FUROSEMIDE 10 MG/ML 2 ML VIAL IV ONE (09:26)
[2020-04-26] MEDS: PANTOPRAZOLE 40 MG/10 ML VIAL IVP SCH (10:13)
--- NOTE | 2020-04-26 11:04 | XR ---
EXAMINATION TYPE: XR chest 2V DATE OF EXAM: 04/26/2020 COMPARISON: 08/09/2015 INDICATION: Cough TECHNIQUE: Frontal and lateral views of the chest are obtained. FINDINGS: The heart size is normal. The pulmonary vasculature is normal. There is linear opacity within the left midlung. Correlate for atelectasis. Atypical pneumonia could be considered.. IMPRESSION: 1. Mild linear opacity within the left midlung. Correlate for atelectasis
--- NOTE | 2020-04-26 11:05 | P.PN ---
Progress Note - Text 04/26/20 640am 50-year-old male status post colostomy reversal by Dr. Mao. Patient has an epidural catheter was solution running at 12 mL an hour. Patient complaining of back pain, patient was examined the dressing looks clean dry and intact there is no swelling or inflammation noted at the site, there is no discharge from the s ite. There is no sensory or motor deficit noted.. Patient was able to stand on his feet with no difficulty. Plan to continue epidural infusion for another day and DC the epidural in the morning
--- NOTE | 2020-04-26 11:38 | P.PN ---
Subjective Progress Note Date: 04/26/20 CHIEF COMPLAINT: History of perforated diverticulitis HISTORY OF PRESENT ILLNESS: Patient is postop day #2 status post reversal of colostomy, incision hernia repair, partial omentectomy for history of perforated diverticulitis. Patient is reporting increase in abdominal pain and distention with pain in his lower back. He is complaining of a lot of gas pains. He is not passing gas no bowel movement. Denies any nausea or vomiting. He did have a temp of 100.2 last night this morning temp 99.8. WBC is 9.9 he is currently nothing by mouth his Covid and flu tests were negative. Patient is reporting a productive cough. He feels dry. His urine is dark. PHYSICAL EXAM: VITAL SIGNS: Reviewed. GENERAL: Well-developed in no acute distress. HEENT: No sclera icterus. Extraocular movements grossly intact. Moist buccal mucosa. Head is atraumatic, normocephalic. ABDOMEN: Soft. Distended incision site clean dry and intact NEUROLOGIC: Alert and oriented. Cranial nerves II through XII grossly intact. ASSESSMENT: 1. History of perforated diverticulitis status post reversal of colostomy, in cision hernia repair, partial omentectomy PLAN: -We'll give patient a 2 L fluid bolus -Keep IV fluids at 125 mL an hour -Keep patient nothing by mouth -Continue epidural for pain control -Can give Dilaudid as needed to help with pain control -Continue Zofran as needed for nausea -Continue IV fluids -Encouraged patient to use incentive spirometer and increase activity -GI prophylaxis Protonix and DVT prophylaxis SCDs Physician Aws Solution Architect note has been reviewed by physician. Signing provider agrees with the documented findings, assessment, and plan of care. Objective - Vital Signs Vital signs: Vital Signs Temp 99.8 F H 04/26/20 07:48 Pulse 117 H 04/26/20 07:48 Resp 20 04/26/20 07:48 BP 146/84 04/26/20 07:48 Pulse Ox 94 L 04/26/20 08:46 Intake & Output 04/25/20 04/26/20 04/26/20 18:59 06:59 18:59 Intake Total 229.8 Output Total 750 700 Balance -750 -470.2 Intake: Intake, IV Titration 229.8 Amount Ropivacaine 250 mg 229.8 Hydromorphone (Pf) 5 mg In Sodium Chloride 0.9% 200 ml @ Per Protocol EPIDURAL .Q0M PRN Rx#: [id number] Output: Urine 750 700 Other: Voiding Method Indwelling Catheter Indwelling Catheter Indwelling Catheter - Labs CBC & Chem 7: 04/26/20 08:20 04/25/20 06:02 Labs: Abnormal Lab Results - Last 24 Hours (Table) 04/25/20 Range/Units 19:55 Urine Protein Trace H (Negative) Ur Leukocyte Esterase Moderate H (Negative) Urine WBC 8 H (0-5) /hpf Urine Mucus Many H (None) /hpf
[2020-04-26] MEDS: SODIUM CHLORIDE 0.9% 1,000 ML IV SCH ×2 (11:40→12:28)
--- NOTE | 2020-04-26 13:05 | P.PN ---
Subjective 30-year-old male one of our office patient with past medical history of diverticulitis post perforated diverticuli with peritonitis ended up going to the OR with Dr. Mao had partial colectomy and who was hospitalized 01/10/2024 rupture diverticuli and peritonitis ended up going for surgery for right sided colectomy and colostomy. Patient was on antibiotics his symptoms improve patient was seen Dr. Mao earlier and schedule elective reversal colostomy which was done today successfully with no major complication patient was admitted to the floor afterward med reconsultation were done, pain is under control, patient hemodynamic status is Stable with no major abnormality. Patient was hospitalized after surgery 04/25: Patient states that he had a rough night. He currently has epidural in place and complaining of itching. He has a Russo catheter in place. He is using his incentive spirometry. He is postop day #1 following reversal of colostomy. He is currently nothing by mouth. Patient is afebrile, heart rate 102, blood pressure 148/88, pulse ox 93% on 3 L nasal cannula. CBC is unremarkable. Electrolytes normal, creatinine 0.7. Blood sugar 149. 04/26: Patient evaluated this morning, noted to be sitting up at the bedside. Complains of lower back pain at the epidural site, will consult with anesthesiology to check the epidural, but catheter seems to be in correct placement and not dislodged. Patient continues to be nothing by mouth, still has not passed gas or had a bowel movement. He has complains of a productive cough and has mild expiratory wheeze noted on exam. Will order 20 mg IV Lasix IV push x 1 dose. Patient encouraged to use incentive spirometer and increase activity. Patient is febrile, 99.8, heart rate 117, respiratory 20, blood pressure 146/84, 94% on room air. Objective - Vital Signs Vital signs: Vital Signs Temp 99.8 F H 04/26/20 07:48 Pulse 117 H 04/26/20 07:48 Resp 20 04/26/20 07:48 BP 146/84 04/26/20 07:48 Pulse Ox 94 L 04/26/20 08:46 Intake & Output 04/25/20 04/26/20 04/26/20 18:59 06:59 18:59 Intake Total 229.8 Output Total 750 700 Balance -750 -470.2 Intake: Intake, IV Titration 229.8 Amount Ropivacaine 250 mg 229.8 Hydromorphone (Pf) 5 mg In Sodium Chloride 0.9% 200 ml @ Per Protocol EPIDURAL .Q0M PRN Rx#: [id number] Output: Urine 750 700 Other: Voiding Method Indwelling Catheter Indwelling Catheter Indwelling Catheter - Exam General Appearance: Alert, cooperative, no distress, moderately overweight Neck HEENT: Supple, no lymphadenopathy, no thyroid enlargement, no carotid bruits. Lungs: Diffuse expiratory wheezes, no rhonchi, no deformity. Chest Wall: Chest wall normal expansion with deep inspiration no tenderness and no deformity was found on exam, no costochondral pain or discomfort Heart: Regular rate and rhythm, S1, S2 normal, no murmur, rub or gallop. Back: Symmetric, no curvature, ROM normal, no CVA tenderness. Abdomen: Soft no bowel sounds incision in midline and the ostomy reversal site looks fine with no hematoma or bleeding Extremities: Extremities normal, atraumatic, no cyanosis or edema. Pulses: 2+ and symmetric Skin: Skin color, texture, tugor normal, no rashes or lesions. Neurologic: Alert oriented x3 cranial nerves II through XII intact, no motor deficit, no abnormal balance or gait - Labs CBC & Chem 7: 04/26/20 08:20 04/25/20 06:02 Labs: Abnormal Lab Results - Last 24 Hours (Table) 04/25/20 Range/Units 19:55 Urine Protein Trace H (Negative) Ur Leukocyte Esterase Moderate H (Negative) Urine WBC 8 H (0-5) /hpf Urine Mucus Many H (None) /hpf Assessment and Plan Plan: 1 post reversal colostomy, postop day #2. Continue current pain management, epidural, Zofran for nausea. Patient has Russo catheter in place, continue incentive spirometry to reduce incidence of atelectasis and hospital acquired pneumonia. 2 history of bipolar disorders: Patient has not been taking any medication. 3 history of tobacco use, continue nicotine patch. 4 elevated blood pressure: Remain on diet control for systolic is above 140 small dose of calcium channel trudi can be use or use clonidine patch. 5 GI prophylaxis: Continue Protonix 40 mg daily. 6 DVT prophylaxis: Continue SCD along with LACY lazarae.. The above impression and plan of care have been discussed and directed by signing physician. Jennifer Acosta nurse practitioner acting as scribe for signing physician.
[2020-04-26] MEDS: PIPERACILLIN-TAZOBACTAM 3.375 GM in SODIUM CHLORIDE 0.9% 100 ML IVPB SCH ×2 (14:28→21:44)
[2020-04-26] MEDS: SIMETHICONE 40 MG/0.6 ML DROPS 2,000 MG/30 ML BOTTLE PO SCH ×3 (15:26→21:44)
[2020-04-26] MEDS: HEPARIN SODIUM,PORCINE 5,000 UNIT/ML 1 ML VIAL SQ SCH ×2 (15:26→21:45)
[2020-04-26] MEDS: HYDROmorphone 1 MG/ML 1 ML SYRINGE IVP PRN ×2 (15:27→21:56)
[2020-04-26] MEDS: IPRATROPIUM-ALBUTEROL 3 ML NEB INHALATION SCH ×2 (15:32→19:45)
[2020-04-26] MEDS: ONDANSETRON 4 MG/2 ML VIAL IVP PRN (21:57)
[2020-04-27] MEDS: PIPERACILLIN-TAZOBACTAM 3.375 GM in SODIUM CHLORIDE 0.9% 100 ML IVPB SCH ×3 (03:36→21:21)
[2020-04-27] MEDS: HYDROmorphone 1 MG/ML 1 ML SYRINGE IVP PRN ×6 (03:37→21:19)
[2020-04-27 06:44] LABS: Basophils # (A) 0.1 k/uL (0-0.2); Basophils % (A) 1 %; Eosinophils # (A) 0.6 k/uL (0-0.7); Eosinophils % (A) 7 %; HCT 40.2 % (39.0-53.0); HGB 13.7 gm/dL (13.0-17.5); Lymphocytes # (A) 1.9 k/uL (1.0-4.8); Lymphocytes % (A) 21 %; MCH 30.1 pg (25.0-35.0); MCHC 34.1 g/dL (31.0-37.0); MCV 88.2 fL (80.0-100.0); Mean Platelet Volume 7.9; Monocytes # (A) 0.7 k/uL (0-1.0); Monocytes % (A) 8 %; Neutrophils # (A) 5.3 k/uL (1.3-7.7); Neutrophils % (A) 61 %; Platelet Count 254 k/uL (150-450); RBC 4.56 m/uL (4.30-5.90); RDW 12.3 % (11.5-15.5); WBC 8.7 k/uL (3.8-10.6)
[2020-04-27] MEDS: HEPARIN SODIUM,PORCINE 5,000 UNIT/ML 1 ML VIAL SQ SCH ×2 (07:11→21:21)
--- NOTE | 2020-04-27 08:41 | P.PN ---
Progress Note - Text Date: 04/27/2020 Time: 08:22 The patient is status post, colostomy reversal, postoperative day number 3 The patient has no complaints of nausea vomiting or headache. The patient does not complain of any lower extremity numbness or weakness. The epidural is running at 12 mL per hour. The epidural will be discontinued this morning, pain meds will be provided to the patient by the service.
[2020-04-27] MEDS: PANTOPRAZOLE 40 MG/10 ML VIAL IVP SCH (08:59)
[2020-04-27] MEDS: D5-0.45% NACL WITH KCL 20MEQ/L 1,000 ML IV SCH ×3 (08:59→21:22)
[2020-04-27] MEDS: SIMETHICONE 40 MG/0.6 ML DROPS 2,000 MG/30 ML BOTTLE PO SCH ×4 (08:59→21:21)
[2020-04-27] MEDS: IPRATROPIUM-ALBUTEROL 3 ML NEB INHALATION SCH ×3 (09:08→19:22)
[2020-04-27 10:55] LABS: ALT 21 U/L (10-49); AST 15 U/L (14-35); African American GFR (CKD) 144.7 (60.0-200.0); Albumin/Globulin Ratio 1.81 (1.60-3.17); Alkaline Phosphatase 64 U/L (41-126); Blood Urea Nitrogen <5.0 mg/dL (9.0-27.0); Calcium 8.7 mg/dL (8.7-10.3); Carbon Dioxide 26.1 mmol/L (21.6-31.8); Chloride 101 mmol/L (96-109); Globulin 2.1 g/dL (1.6-3.3); Glucose 117 mg/dL (70-110); Non-African American GFR(CKD) 124.9 (60.0-200.0); Potassium 3.9 mmol/L (3.5-5.5); Sodium 136 mmol/L (135-145); Total Protein 5.9 g/dL (6.2-8.2)
--- NOTE | 2020-04-27 13:33 | P.PN ---
Subjective Progress Note Date: 04/27/20 Principal diagnosis: Post colostomy revision, bipolar disorders, tobacco use, elevated blood pressure. 30-year-old male one of our office patient with past medical history of dive rticulitis post perforated diverticuli with peritonitis ended up going to the OR with Dr. Mao had partial colectomy and who was hospitalized 01/10/2024 rupture diverticuli and peritonitis ended up going for surgery for right sided colectomy and colostomy. Patient was on antibiotics his symptoms improve patient was seen Dr. Mao earlier and schedule elective reversal colostomy which was done today successfully with no major complication patient was admitted to the floor afterward med reconsultation were done, pain is under control, patient hemodynamic status is Stable with no major abnormality. Patient was hospitalized after surgery 04/25: Patient states that he had a rough night. He currently has epidural in place and complaining of itching. He has a Russo catheter in place. He is using his incentive spirometry. He is postop day #1 following reversal of colostomy. He is currently nothing by mouth. Patient is afebrile, heart rate 102, blood pressure 148/88, pulse ox 93% on 3 L nasal cannula. CBC is unremarkable. Electrolytes normal, creatinine 0.7. Blood sugar 149. 04/26: Patient evaluated this morning, noted to be sitting up at the bedside. Complains of lower back pain at the epidural site, will consult with anesthesiology to check the epidural, but catheter seems to be in correct placement and not dislodged. Patient continues to be nothing by mouth, still has not passed gas or had a bowel movement. He has complains of a productive cough and has mild expiratory wheeze noted on exam. Will order 20 mg IV Lasix IV push x 1 dose. Patient encouraged to use incentive spirometer and increase activity. Patient is febrile, 99.8, heart rate 117, respiratory 20, blood pressure 146/84, 94% on room air. 04/27: Patient is doing very well epidural was taking out, his Russo cath repeat taking out as well, no bowel movement patient is passing gas currently is likely would have more diet today increase activity and pain is much better control. Objective - Vital Signs Vital signs: Vital Signs Temp 98.1 F 04/27/20 07:48 Pulse 90 04/27/20 12:43 Resp 16 12/19/20 12:43 BP 144/92 04/27/20 07:48 Pulse Ox 91 L 04/27/20 07:48 Intake & Output 04/26/20 04/27/20 04/27/20 18:59 06:59 18:59 Intake Total 1500 329.8 0 Output Total 1140 3000 Balance 360 -2670.2 0 Intake: IV 1500 D5-0.45% NaCl with KCl 1500 20Meq/l 1,000 ml @ 125 mls/hr IV .Q8H [facility] Rx#: [id number] Intake, IV Titration 229.8 Amount Ropivacaine 250 mg 229.8 Hydromorphone (Pf) 5 mg In Sodium Chloride 0.9% 200 ml @ Per Protocol EPIDURAL .Q0M PRN Rx#: [id number] Oral 100 0 Output: Urine 1140 3000 Uretheral (Russo) 1140 2000 Other: Voiding Method Indwelling Catheter Indwelling Catheter Indwelling Catheter # Voids 450 - Exam CONSTITUTIONAL: Morbidly obese no acute respiratory distress. EYES: No icterus sclerae, no conjunctivitis. EARS, NOSE, MOUTH, THROAT, and FACE: No sore throat, lymphadenopathy, carotid bruits or deformity. RESPIRATORY: No SOB cough or wheezes. CARDIOVASCULAR: No CP, Palpitation, PND, Orthopnea, or angina. GASTROINTESTINAL: No Abd pain, Nausea or vomiting, no Diarrhea or constipation, No GI Bleed, no distention or masses. Still has significant pain around the incision site GENITOURINARY: Negative for Hematuria or UTI, no kidney stones. INTEGUMENT/BREAST: Negative for any muscular injury with mild osteoarthritis.. HEMATOLOGIC/LYMPHATIC: Negative for bleed or purpura. MUSCULOSKELTAL: Negative for Myalgia or arthralgia. NEURLOGICAL: No LOC, Sz or syncope, blurred vision dizziness or abnormality.. BEHAVIORAL/PSYCH: Negative. ENDOCRINE: Negative. - Exam General Appearance: Alert, cooperative, no distress, moderately overweight Neck HEENT: Supple, no lymphadenopathy, no thyroid enlargement, no carotid bruits. Lungs: Diffuse expiratory wheezes, no rhonchi, no deformity. Chest Wall: Chest wall normal expansion with deep inspiration no tenderness and no deformity was found on exam, no costochondral pain or discomfort Heart: Regular rate and rhythm, S1, S2 normal, no murmur, rub or gallop. Back: Symmetric, no curvature, ROM normal, no CVA tenderness. Abdomen: Soft no bowel sounds incision in midline and the ostomy reversal site looks fine with no hematoma or bleeding Extremities: Extremities normal, atraumatic, no cyanosis or edema. Pulses: 2+ and symmetric Skin: Skin color, texture, tugor normal, no rashes or lesions. Neurologic: Alert oriented x3 cranial nerves II through XII intact, no motor deficit, no abnormal balance or gait - Labs CBC & Chem 7: 04/27/20 06:09 04/27/20 06:09 Labs: Abnormal Lab Results - Last 24 Hours (Table) 04/27/20 Range/Units 06:09 BUN <5.0 L (9.0-27.0) mg/dL Glucose 117 H (70-110) mg/dL Total Protein 5.9 L (6.2-8.2) g/dL Microbiology - Last 24 Hours (Table) 04/25/20 19:46 Blood Culture - Preliminary Blood No Growth after 24 hours 04/26/20 12:00 Urine Culture - Preliminary Urine,Catheterized Assessment and Plan Assessment: 1 post reversal colostomy, postop day #3. Continue current pain management, epi dural will be taking out today, Zofran for nausea. Patient has Russo catheter in place, continue incentive spirometry to reduce incidence of atelectasis and hospital acquired pneumonia. Titrate physical therapy 2 history of bipolar disorders: Patient has not been taking any medication. 3 history of tobacco use, continue nicotine patch. 4 elevated blood pressure: Remain on diet control for systolic is above 140 small dose of calcium channel trudi can be use or use clonidine patch. 5 GI prophylaxis: Continue Protonix 40 mg daily. 6 DVT prophylaxis: Continue SCD along with LACY hailee.. Discharge planning: Advance physical therapy advance diet when approved by surgical the patient is doing well probably discharge the next 48 hours.
--- NOTE | 2020-04-27 15:24 | P.PN ---
Subjective Progress Note Date: 04/27/20 CHIEF COMPLAINT:Diverticulitis HISTORY OF PRESENT ILLNESS: The patient is a 30-year-old male with diverti culitis. He is status post low anterior resection colostomy reversal, 05/04/20. He is ambulating. No passage of flatus. No fevers or chills. No reports of abdominal pain. No nausea and vomiting. He is on ice chips. He reports feeling better today. ROS: No reports of nausea and vomiting. No bowel movements. No fevers or chills. No new chest pain. No productive sputum. No dyspnea on exertion. PHYSICAL EXAM: VITAL SIGNS: Reviewed CONSTITUTIONAL: Well developed and in no acute distress. EYES: Conjuctivae without sclera icterus. Extraocular movements grossly intact. HEAD, EARS, NOSE, THROAT: Moist buccal mucosa. Head is atraumatic, normocephalic. Hears conversational speech. No nasal drainage. NECK: Supple. No thyroidomegaly. RESPIRATORY: Non-labored respirations and equal bilateral excursions. CARDIOVASCULAR: Palpable 2+ radial pulses. ABDOMEN: Protuberant. Incision and intact. Dressing intact. MUSCULOSKELETAL: No gross deformity of the lower extremities noted. No clubbing. No cyanosis. SKIN: Good skin turgor. Well perfused. NEUROLOGIC: Cranial nerves II through XII grossly intact. No focal or lateralizing signs. PSYCH: Appropriate affect. Alert and oriented to person, place and time. CLINICAL LABS: WBC normal 8.7. Hemoglobin stable at 13.7-14.0. Creatinine normal. ASSESSMENT: 1. Diverticulitis 2. Ileus PLAN: 1. Entereg started to address expected ileus 2. Start ice chips and popsicles 3. Start liquid diet for morning Objective - Vital Signs Vital signs: Vital Signs Temp 98.3 F 04/27/20 14:00 Pulse 96 04/27/20 14:00 Resp 18 04/27/20 14:00 BP 133/83 04/27/20 14:00 Pulse Ox 95 04/27/20 14:00 Intake & Output 04/26/20 04/27/20 04/27/20 18:59 06:59 18:59 Intake Total 1500 329.8 0 Output Total 1140 3000 Balance 360 -2670.2 0 Intake: IV 1500 D5-0.45% NaCl with KCl 1500 20Meq/l 1,000 ml @ 125 mls/hr IV .Q8H [facility] Rx#: [id number] Intake, IV Titration 229.8 Amount Ropivacaine 250 mg 229.8 Hydromorphone (Pf) 5 mg In Sodium Chloride 0.9% 200 ml @ Per Protocol EPIDURAL .Q0M PRN Rx#: [id number] Oral 100 0 Output: Urine 1140 3000 Uretheral (Russo) 1140 2000 Other: Voiding Method Indwelling Catheter Indwelling Catheter Indwelling Catheter # Voids 450 - Labs CBC & Chem 7: 04/27/20 06:09 04/27/20 06:09 Labs: Abnormal Lab Results - Last 24 Hours (Table) 04/27/20 Range/Units 06:09 BUN <5.0 L (9.0-27.0) mg/dL Glucose 117 H (70-110) mg/dL Total Protein 5.9 L (6.2-8.2) g/dL Microbiology - Last 24 Hours (Table) 04/25/20 19:46 Blood Culture - Preliminary Blood No Growth after 24 hours 04/26/20 12:00 Urine Culture - Preliminary Urine,Catheterized Assessment and Plan (1) History of colostomy reversal Current Visit: Yes Status: Acute Code(s): Z98.890 - OTHER SPECIFIED POSTPROCEDURAL STATES SNOMED Code(s): 008347261 (2) Morbid obesity due to excess calories Current Visit: Yes Status: Acute Code(s): E66.01 - MORBID (SEVERE) OBESITY DUE TO EXCESS CALORIES SNOMED Code(s): 139335977 (3) BMI 40.0-44.9, adult Current Visit: Yes Status: Acute Code(s): Z68.41 - BODY MASS INDEX [BMI]40.0-44.9, ADULT SNOMED Code(s): 275825317 (4) Diverticulitis Current Visit: No Status: Acute Code(s): K57.92 - DVTRCLI OF INTEST, PART UNSP, W/O PERF OR ABSCESS W/O BLEED SNOMED Code(s): 391869768
[2020-04-27] MEDS: ALVIMOPAN 12 MG CAPSULE PO SCH (21:21)
[2020-04-27] MEDS: ACETAMINOPHEN IV (For NPO) 1,000 MG in EMPTY BAG 1 BAG IVPB SCH (23:02)
[2020-04-27] MEDS: KETOROLAC 15 MG/ML 1 ML VIAL IVP SCH (23:09)
[2020-04-27] MEDS: GABAPENTIN 300 MG CAP PO SCH (23:09)
[2020-04-28] MEDS: HYDROmorphone 1 MG/ML 1 ML SYRINGE IVP PRN ×4 (01:30→23:14)
[2020-04-28] MEDS: KETOROLAC 15 MG/ML 1 ML VIAL IVP SCH ×5 (01:30→23:13)
[2020-04-28] MEDS: ACETAMINOPHEN IV (For NPO) 1,000 MG in EMPTY BAG 1 BAG IVPB SCH ×3 (03:26→16:34)
[2020-04-28] MEDS: PIPERACILLIN-TAZOBACTAM 3.375 GM in SODIUM CHLORIDE 0.9% 100 ML IVPB SCH ×3 (04:13→19:59)
[2020-04-28] MEDS: PANTOPRAZOLE 40 MG/10 ML VIAL IVP SCH (08:59)
[2020-04-28] MEDS: HEPARIN SODIUM,PORCINE 5,000 UNIT/ML 1 ML VIAL SQ SCH ×2 (08:59→19:59)
[2020-04-28] MEDS: GABAPENTIN 300 MG CAP PO SCH ×3 (08:59→19:59)
[2020-04-28] MEDS: ALVIMOPAN 12 MG CAPSULE PO SCH ×2 (09:00→19:57)
[2020-04-28] MEDS: IPRATROPIUM-ALBUTEROL 3 ML NEB INHALATION SCH ×3 (09:10→19:47)
[2020-04-28] MEDS: SIMETHICONE 40 MG/0.6 ML DROPS 2,000 MG/30 ML BOTTLE PO SCH ×4 (09:11→19:59)
[2020-04-28] MEDS: D5-0.45% NACL WITH KCL 20MEQ/L 1,000 ML IV SCH ×2 (09:11→13:36)
[2020-04-28 10:40] VITALS: BMI 40.9
--- NOTE | 2020-04-28 15:55 | P.PN ---
Subjective Progress Note Date: 04/28/20 CHIEF COMPLAINT:Diverticulitis HISTORY OF PRESENT ILLNESS: The patient is a 30-year-old male with diverti culitis. He is status post low anterior resection colostomy reversal, 04/24/20. He is passing flatus. No bowel movements. He is tolerating nonnarcotic pain plan including Tylenol, ibuprofen, gabapentin. ROS: No reports of nausea and vomiting. No bowel movements. No fevers or chills. PHYSICAL EXAM: VITAL SIGNS: Reviewed CONSTITUTIONAL: Well developed and in no acute distress. EYES: Conjuctivae without sclera icterus. Extraocular movements grossly intact. HEAD, EARS, NOSE, THROAT: Moist buccal mucosa. Head is atraumatic, normocephalic. Hears conversational speech. No nasal drainage. NECK: Supple. No thyroidomegaly. RESPIRATORY: Non-labored respirations and equal bilateral excursions. CARDIOVASCULAR: Palpable 2+ radial pulses. ABDOMEN: Protuberant. Mild shadowing along dressing. Dressing intact. No signs of infection. MUSCULOSKELETAL: No gross deformity of the lower extremities noted. No clubbing. No cyanosis. SKIN: Good skin turgor. Well perfused. NEUROLOGIC: Cranial nerves II through XII grossly intact. No focal or lateralizing signs. PSYCH: Appropriate affect. Alert and oriented to person, place and time. CLINICAL LABS: WBC normal 8.7. Hemoglobin stable at 13.7-14.0. Creatinine normal. ASSESSMENT: 1. Diverticulitis 2. Ileus PLAN: 1. Continure entereg 2. Non-narcotic regimen of ibuprofen, tylenol, and gabapentin 3. Will advance diet to full liquid diet Objective - Vital Signs Vital signs: Vital Signs Temp 98.3 F 04/28/20 14:00 Pulse 78 04/28/20 14:00 Resp 16 04/28/20 14:00 BP 142/94 04/28/20 14:00 Pulse Ox 97 04/28/20 14:00 Intake & Output 04/27/20 04/28/20 04/28/20 18:59 06:59 18:59 Intake Total 0 Output Total 200 Balance -200 Weight 137 kg Intake: Oral 0 Output: Urine 200 Other: Voiding Method Indwelling Catheter # Voids 2 - Labs CBC & Chem 7: 04/27/20 06:09 04/27/20 06:09 Labs: Microbiology - Last 24 Hours (Table) 04/25/20 19:46 Blood Culture - Preliminary Blood No Growth after 48 hours 04/26/20 12:00 Urine Culture - Final Urine,Catheterized Assessment and Plan (1) History of colostomy reversal Current Visit: Yes Status: Acute Code(s): Z98.890 - OTHER SPECIFIED POSTPROCEDURAL STATES SNOMED Code(s): 294748534 (2) Morbid obesity due to excess calories Current Visit: Yes Status: Acute Code(s): E66.01 - MORBID (SEVERE) OBESITY DUE TO EXCESS CALORIES SNOMED Code(s): 180618761 (3) BMI 40.0-44.9, adult Current Visit: Yes Status: Acute Code(s): Z68.41 - BODY MASS INDEX [BMI]40.0-44.9, ADULT SNOMED Code(s): 864893709 (4) Diverticulitis Current Visit: No Status: Acute Code(s): K57.92 - DVTRCLI OF INTEST, PART UNSP, W/O PERF OR ABSCESS W/O BLEED SNOMED Code(s): 282515235
[2020-04-28] MEDS: ONDANSETRON 4 MG/2 ML VIAL IVP PRN (16:54)
[2020-04-29] MEDS: PIPERACILLIN-TAZOBACTAM 3.375 GM in SODIUM CHLORIDE 0.9% 100 ML IVPB SCH ×3 (04:59→21:02)
[2020-04-29] MEDS: D5-0.45% NACL WITH KCL 20MEQ/L 1,000 ML IV SCH ×2 (04:59→08:55)
[2020-04-29] MEDS: KETOROLAC 15 MG/ML 1 ML VIAL IVP SCH ×4 (05:00→23:57)
--- NOTE | 2020-04-29 05:31 | P.PN ---
Subjective Progress Note Date: 04/28/20 Principal diagnosis: Post colostomy revision, bipolar disorders, tobacco use, elevated blood pressure. 30-year-old male one of our office patient with past medical history of dive rticulitis post perforated diverticuli with peritonitis ended up going to the OR with Dr. Mao had partial colectomy and who was hospitalized 01/10/2024 rupture diverticuli and peritonitis ended up going for surgery for right sided colectomy and colostomy. Patient was on antibiotics his symptoms improve patient was seen Dr. Mao earlier and schedule elective reversal colostomy which was done today successfully with no major complication patient was admitted to the floor afterward med reconsultation were done, pain is under control, patient hemodynamic status is Stable with no major abnormality. Patient was hospitalized after surgery 04/25: Patient states that he had a rough night. He currently has epidural in place and complaining of itching. He has a Russo catheter in place. He is using his incentive spirometry. He is postop day #1 following reversal of colostomy. He is currently nothing by mouth. Patient is afebrile, heart rate 102, blood pressure 148/88, pulse ox 93% on 3 L nasal cannula. CBC is unremarkable. Electrolytes normal, creatinine 0.7. Blood sugar 149. 04/26: Patient evaluated this morning, noted to be sitting up at the bedside. Complains of lower back pain at the epidural site, will consult with anesthesiology to check the epidural, but catheter seems to be in correct placement and not dislodged. Patient continues to be nothing by mouth, still has not passed gas or had a bowel movement. He has complains of a productive cough and has mild expiratory wheeze noted on exam. Will order 20 mg IV Lasix IV push x 1 dose. Patient encouraged to use incentive spirometer and increase activity. Patient is febrile, 99.8, heart rate 117, respiratory 20, blood pressure 146/84, 94% on room air. 04/27: Patient is doing very well epidural was taking out, his Russo cath repeat taking out as well, no bowel movement patient is passing gas currently is likely would have more diet today increase activity and pain is much better control. 04/28: Patient is doing well still have no bowel movement, pain is under control, fully catheter is out patient is able to void, still passing gas but no bowel movement so far. Objective - Vital Signs Vital signs: Vital Signs Temp 98.5 F 04/28/20 02:19 Pulse 71 04/28/20 02:19 Resp 20 04/28/20 02:19 BP 132/81 04/28/20 02:19 Pulse Ox 96 04/28/20 02:19 Intake & Output 04/27/20 04/27/20 04/28/20 06:59 18:59 06:59 Intake Total 329.8 0 Output Total 3000 200 Balance -2670.2 -200 Intake: Intake, IV Titration 229.8 Amount Ropivacaine 250 mg 229.8 Hydromorphone (Pf) 5 mg In Sodium Chloride 0.9% 200 ml @ Per Protocol EPIDURAL .Q0M PRN Rx#: [id number] Oral 100 0 Output: Urine 3000 200 Uretheral (Russo) 2000 Other: Voiding Method Indwelling Catheter Indwelling Catheter # Voids 2 - Exam CONSTITUTIONAL: Morbidly obese no acute respiratory distress. EYES: No icterus sclerae, no conjunctivitis. EARS, NOSE, MOUTH, THROAT, and FACE: No sore throat, lymphadenopathy, carotid bruits or deformity. RESPIRATORY: No SOB cough or wheezes. CARDIOVASCULAR: No CP, Palpitation, PND, Orthopnea, or angina. GASTROINTESTINAL: No Abd pain, Nausea or vomiting, no Diarrhea or constipation, No GI Bleed, no distention or masses. Still has significant pain around the incision site GENITOURINARY: Negative for Hematuria or UTI, no kidney stones. INTEGUMENT/BREAST: Negative for any muscular injury with mild osteoarthritis.. HEMATOLOGIC/LYMPHATIC: Negative for bleed or purpura. MUSCULOSKELTAL: Negative for Myalgia or arthralgia. NEURLOGICAL: No LOC, Sz or syncope, blurred vision dizziness or abnormality.. BEHAVIORAL/PSYCH: Negative. ENDOCRINE: Negative. - Exam General Appearance: Alert, cooperative, no distress, moderately overweight Neck HEENT: Supple, no lymphadenopathy, no thyroid enlargement, no carotid bruits. Lungs: Diffuse expiratory wheezes, no rhonchi, no deformity. Chest Wall: Chest wall normal expansion with deep inspiration no tenderness and no deformity was found on exam, no costochondral pain or discomfort Heart: Regular rate and rhythm, S1, S2 normal, no murmur, rub or gallop. Back: Symmetric, no curvature, ROM normal, no CVA tenderness. Abdomen: Soft no bowel sounds incision in midline and the ostomy reversal site looks fine with no hematoma or bleeding Extremities: Extremities normal, atraumatic, no cyanosis or edema. Pulses: 2+ and symmetric Skin: Skin color, texture, tugor normal, no rashes or lesions. Neurologic: Alert oriented x3 cranial nerves II through XII intact, no motor deficit, no abnormal balance or gait - Labs CBC & Chem 7: 04/27/20 06:09 04/27/20 06:09 Labs: Abnormal Lab Results - Last 24 Hours (Table) 04/27/20 Range/Units 06:09 BUN <5.0 L (9.0-27.0) mg/dL Glucose 117 H (70-110) mg/dL Total Protein 5.9 L (6.2-8.2) g/dL Microbiology - Last 24 Hours (Table) 04/25/20 19:46 Blood Culture - Preliminary Blood No Growth after 48 hours 04/26/20 12:00 Urine Culture - Final Urine,Catheterized Assessment and Plan Assessment: 1 post reversal colostomy, postop day #4. Continue current pain management, epidural will be taking out today, Zofran for nausea. Patient has Russo catheter in place, continue incentive spirometry to reduce incidence of atelectasis and hospital acquired pneumonia. Titrate physical therapy 2 history of bipolar disorders: Patient has not been taking any medication. Resume home meds 3 history of tobacco use, continue nicotine patch. 4 elevated blood pressure: Remain on diet control for systolic is above 140 small dose of calcium channel trudi can be use or use clonidine patch. 5 GI prophylaxis: Continue Protonix 40 mg daily. 6 DVT prophylaxis: Continue SCD along with LACY urena.. Discharge planning: Advanced diet patient is doing well a bowel movement next 24 hours and be able to be discharged..
[2020-04-29] MEDS: IPRATROPIUM-ALBUTEROL 3 ML NEB INHALATION SCH ×3 (07:35→19:54)
[2020-04-29] MEDS: ALVIMOPAN 12 MG CAPSULE PO SCH ×2 (08:54→20:24)
[2020-04-29] MEDS: SIMETHICONE 40 MG/0.6 ML DROPS 2,000 MG/30 ML BOTTLE PO SCH ×4 (08:54→21:12)
[2020-04-29] MEDS: HEPARIN SODIUM,PORCINE 5,000 UNIT/ML 1 ML VIAL SQ SCH ×2 (08:54→21:02)
[2020-04-29] MEDS: GABAPENTIN 300 MG CAP PO SCH ×3 (08:54→22:49)
[2020-04-29] MEDS: PANTOPRAZOLE 40 MG/10 ML VIAL IVP SCH (08:55)
[2020-04-29] MEDS: NICOTINE 21MG/24HR PATCH TRANSDERM SCH (10:43)
--- NOTE | 2020-04-29 11:45 | P.PN ---
Subjective Progress Note Date: 04/29/20 CHIEF COMPLAINT: History of perforated diverticulitis HISTORY OF PRESENT ILLNESS: Patient is status post reversal of colostomy, incision hernia repair, partial omentectomy for history of perforated divert iculitis. Patient reports some abdominal pain but controlled with pain medication. He denies any nausea or vomiting. He is passing gas and having bowel movements. He is currently tolerating a full liquid diet. He is requesting a nicotine patch. He is afebrile. PHYSICAL EXAM: VITAL SIGNS: Reviewed. GENERAL: Well-developed in no acute distress. HEENT: No sclera icterus. Extraocular movements grossly intact. Moist buccal mucosa. Head is atraumatic, normocephalic. ABDOMEN: Soft. Incision site clean dry and intact NEUROLOGIC: Alert and oriented. Cranial nerves II through XII grossly intact. ASSESSMENT: 1. History of perforated diverticulitis status post reversal of colostomy, in cision hernia repair, partial omentectomy POD#5 PLAN: -Continue pain medication as needed -Advance diet to regular -Add nicotine patch -Encouraged patient to use incentive spirometer and increase activity -GI prophylaxis Protonix and DVT prophylaxis subcu heparin -Anticipate discharge home tomorrow Physician Language Specialist note has been reviewed by physician. Signing provider agrees with the documented findings, assessment, and plan of care. Objective - Vital Signs Vital signs: Vital Signs Temp 98.7 F 04/29/20 08:13 Pulse 85 04/29/20 08:13 Resp 12 04/29/20 08:13 BP 157/91 04/29/20 08:13 Pulse Ox 94 L 04/29/20 08:13 Intake & Output 04/28/20 04/29/20 04/29/20 18:59 06:59 18:59 Intake Total 480 Balance 480 Weight 137 kg Intake: Oral 480 Other: # Voids 1 2 - Labs CBC & Chem 7: 04/27/20 06:09 04/27/20 06:09 Labs: Microbiology - Last 24 Hours (Table) 04/25/20 19:46 Blood Culture - Preliminary Blood No Growth after 72 hours
--- NOTE | 2020-04-29 13:43 | P.PN ---
Subjective Post colostomy revision, bipolar disorders, tobacco use, elevated blood pressure. 30-year-old male one of our office patient with past medical history of diverticulitis post perforated diverticuli with peritonitis ended up going to the OR with Dr. Mao had partial colectomy and who was hospitalized 01/10/2024 rupture diverticuli and peritonitis ended up going for surgery for right sided colectomy and colostomy. Patient was on antibiotics his symptoms improve patient was seen Dr. Mao earlier and schedule elective reversal colostomy which was done today successfully with no major complication patient was admitted to the floor afterward med reconsultation were done, pain is under control, patient hemodynamic status is Stable with no major abnormality. Patient was hospitalized after surgery 04/25: Patient states that he had a rough night. He currently has epidural in place and complaining of itching. He has a Russo catheter in place. He is using his incentive spirometry. He is postop day #1 following reversal of colostomy. He is currently nothing by mouth. Patient is afebrile, heart rate 102, blood pressure 148/88, pulse ox 93% on 3 L nasal cannula. CBC is unremarkable. Electrolytes normal, creatinine 0.7. Blood sugar 149. 04/26: Patient evaluated this morning, noted to be sitting up at the bedside. Complains of lower back pain at the epidural site, will consult with anesthesiology to check the epidural, but catheter seems to be in correct placement and not dislodged. Patient continues to be nothing by mouth, still has not passed gas or had a bowel movement. He has complains of a productive cough and has mild expiratory wheeze noted on exam. Will order 20 mg IV Lasix IV push x 1 dose. Patient encouraged to use incentive spirometer and increase activity. Patient is febrile, 99.8, heart rate 117, respiratory 20, blood pressure 146/84, 94% on room air. 04/27: Patient is doing very well epidural was taking out, his Russo cath repeat taking out as well, no bowel movement patient is passing gas currently is likely would have more diet today increase activity and pain is much better control. 04/28: Patient is doing well still have no bowel movement, pain is under control, fully catheter is out patient is able to void, still passing gas but no bowel movement so far. 04/20 Patient evaluated today, was noted to be ambulating in the hallways. Reports pain is well controlled, denies any nausea, vomiting, abdominal pain. Patient reports he had several bowel movements. He'll be advanced to a regular diet today, possible discharge tomorrow. Objective - Vital Signs Vital signs: Vital Signs Temp 98.7 F 04/29/20 08:13 Pulse 85 04/29/20 08:13 Resp 12 04/29/20 08:13 BP 157/91 04/29/20 08:13 Pulse Ox 94 L 04/29/20 08:13 Intake & Output 04/28/20 04/29/20 04/29/20 18:59 06:59 18:59 Intake Total 480 Balance 480 Weight 137 kg Intake: Oral 480 Other: # Voids 1 2 - Exam General Appearance: Alert, cooperative, no distress, moderately overweight Neck HEENT: Supple, no lymphadenopathy, no thyroid enlargement, no carotid bruits Lungs: Diffuse expiratory wheezes, no rhonchi, no deformity. Chest Wall: Chest wall normal expansion with deep inspiration no tenderness and no deformity was found on exam, no costochondral pain or discomfort Heart: Regular rate and rhythm, S1, S2 normal, no murmur, rub or gallop. Back: Symmetric, no curvature, ROM normal, no CVA tenderness. Abdomen: Soft no bowel sounds incision in midline and the ostomy reversal site looks fine with no hematoma or bleeding Extremities: Extremities normal, atraumatic, no cyanosis or edema. Pulses: 2+ and symmetric Skin: Skin color, texture, tugor normal, no rashes or lesions Neurologic: Alert oriented x3 cranial nerves II through XII intact, no motor deficit, no abnormal balance or gait - Labs CBC & Chem 7: 04/27/20 06:09 04/27/20 06:09 Labs: Microbiology - Last 24 Hours (Table) 04/25/20 19:46 Blood Culture - Preliminary Blood No Growth after 72 hours Assessment and Plan Plan: 1 post reversal colostomy, postop day #5. Continue current pain management, epidural discontinued, Zofran for nausea. continue incentive spirometry to reduce incidence of atelectasis and hospital acquired pneumonia. Titrate physical therapy 2 history of bipolar disorders: Patient has not been taking any medication. Resume home meds 3 history of tobacco use, continue nicotine patch. 4 elevated blood pressure: Remain on diet control for systolic is above 140 small dose of calcium channel trudi can be use or use clonidine patch. 5 GI prophylaxis: Continue Protonix 40 mg daily. 6 DVT prophylaxis: Continue SCD along with LACY lazarae.. The above impression and plan of care have been discussed and directed by signing physician. Jennifer Acosta nurse practitioner acting as scribe for signing physician.
[2020-04-29] MEDS: HYDROmorphone 1 MG/ML 1 ML SYRINGE IVP PRN ×2 (18:13→23:58)
[2020-04-30] MEDS: ONDANSETRON 4 MG/2 ML VIAL IVP PRN (01:14)
[2020-04-30] MEDS: PIPERACILLIN-TAZOBACTAM 3.375 GM in SODIUM CHLORIDE 0.9% 100 ML IVPB SCH ×2 (04:37→12:43)
[2020-04-30] MEDS: KETOROLAC 15 MG/ML 1 ML VIAL IVP SCH ×2 (05:17→12:43)
[2020-04-30] MEDS: NICOTINE 21MG/24HR PATCH TRANSDERM SCH (07:06)
[2020-04-30] MEDS: PANTOPRAZOLE 40 MG/10 ML VIAL IVP SCH (07:07)
[2020-04-30] MEDS: HEPARIN SODIUM,PORCINE 5,000 UNIT/ML 1 ML VIAL SQ SCH (07:07)
[2020-04-30] MEDS: ALVIMOPAN 12 MG CAPSULE PO SCH (07:07)
[2020-04-30] MEDS: SIMETHICONE 40 MG/0.6 ML DROPS 2,000 MG/30 ML BOTTLE PO SCH ×2 (07:07→12:43)
[2020-04-30] MEDS: GABAPENTIN 300 MG CAP PO SCH (07:07)
[2020-04-30] MEDS ORDERED: PANTOPRAZOLE 40 MG TABLET PO SCH (07:30)
[2020-04-30] MEDS: IPRATROPIUM-ALBUTEROL 3 ML NEB INHALATION SCH ×2 (08:40→12:10)
[2020-04-30] MEDS ORDERED: bisacodyL 5 MG TABLET.DR PO PRN (08:42)
[2020-04-30 09:32] VITALS: BP 149/88; PULSE 70; RESP 22; TEMP 97.5
[2020-04-30] MEDS ORDERED: HYDROcodone/APAP 5-325MG 1 EACH TAB PO PRN (12:55)
--- NOTE | 2020-04-30 13:02 | P.DS ---
Providers Date of admission: 04/24/20 09:56 Expected date of discharge: 04/30/20 Attending physician: Rickey Mao Consults: 04/24/20 19:14 Consult Physician Routine Consulting Provider: Babatunde Daly Consult Reason/Comments: Medical management Do you want consulting provider notified?: Yes Primary care physician: Koko Mcnulty MD Hospital Course: Discharge diagnosis 1. History of perforated diverticulitis status post reversal of colostomy, incision hernia repair, partial omentectomy Hospital course This is a 30-year-old male with a known history of perforated diverticulitis. He is now status post reversal of colostomy, incision hernia repair and partial omentectomy. Patient is tolerated surgery well. Pain is controlled. He is tolerating diet. He is passing gas and having bowel movements. He has been up and ambulating. Patient is stable for discharge. Please refer to chart for any further details. Physician Cna Per Diem note has been reviewed by physician. Signing provider agrees with the documented findings, assessment, and plan of care. Patient Condition at Discharge: Stable Plan - Discharge Summary Discharge Rx Participant: Yes New Discharge Prescriptions: New Amoxic-Pot Clav 875-125Mg [Augmentin 875-125] 1 tab PO BID 7 Days #14 tab Hydrocodone/Acetaminophen [[place] 5-325] 1 tab PO Q6HR PRN #10 tab PRN Reason: Pain Continue Docusate [Colace] 100 mg PO BID #30 capsule Multivitamin [Multivitamins Adult Gummies] 1 tab PO DAILY Discharge Medication List Docusate [Colace] 100 mg PO BID #30 capsule 01/16/20 [Rx] Multivitamin [Multivitamins Adult Gummies] 1 tab PO DAILY 02/27/20 [History] Amoxic-Pot Clav 875-125Mg [Augmentin 875-125] 1 tab PO BID 7 Days #14 tab 04/30/20 [Rx] Hydrocodone/Acetaminophen [[place] 5-325] 1 tab PO Q6HR PRN #10 tab 04/30/20 [Rx] Follow up Appointment(s)/Referral(s): Rickey Mao MD [STAFF PHYSICIAN] - 1 Week Koko Mcnulty MD [Primary Care Provider] - 1 Week Activity/Diet/Wound Care/Special Instructions: No driving while taking [place] No lifting over 10 pounds You may shower. No soaking or tub baths for 2 weeks Very light activity until you are reevaluated at your follow up appointment with your surgeon Diet: regular Discharge Disposition: HOME SELF-CARE
--- NOTE | 2020-04-30 13:40 | P.PN ---
Subjective Post colostomy revision, bipolar disorders, tobacco use, elevated blood pressure. 30-year-old male one of our office patient with past medical history of diverticulitis post perforated diverticuli with peritonitis ended up going to the OR with Dr. Mao had partial colectomy and who was hospitalized 01/10/2024 rupture diverticuli and peritonitis ended up going for surgery for right sided colectomy and colostomy. Patient was on antibiotics his symptoms improve patient was seen Dr. Mao earlier and schedule elective reversal colostomy which was done today successfully with no major complication patient was admitted to the floor afterward med reconsultation were done, pain is under control, patient hemodynamic status is Stable with no major abnormality. Patient was hospitalized after surgery 04/25: Patient states that he had a rough night. He currently has epidural in place and complaining of itching. He has a Russo catheter in place. He is using his incentive spirometry. He is postop day #1 following reversal of colostomy. He is currently nothing by mouth. Patient is afebrile, heart rate 102, blood pressure 148/88, pulse ox 93% on 3 L nasal cannula. CBC is unremarkable. Electrolytes normal, creatinine 0.7. Blood sugar 149. 04/26: Patient evaluated this morning, noted to be sitting up at the bedside. Complains of lower back pain at the epidural site, will consult with anesthesiology to check the epidural, but catheter seems to be in correct placement and not dislodged. Patient continues to be nothing by mouth, still has not passed gas or had a bowel movement. He has complains of a productive cough and has mild expiratory wheeze noted on exam. Will order 20 mg IV Lasix IV push x 1 dose. Patient encouraged to use incentive spirometer and increase activity. Patient is febrile, 99.8, heart rate 117, respiratory 20, blood pressure 146/84, 94% on room air. 04/27: Patient is doing very well epidural was taking out, his Russo cath repeat taking out as well, no bowel movement patient is passing gas currently is likely would have more diet today increase activity and pain is much better control. 04/28: Patient is doing well still have no bowel movement, pain is under control, fully catheter is out patient is able to void, still passing gas but no bowel movement so far. 04/29 Patient evaluated today, was noted to be ambulating in the hallways. Reports pain is well controlled, denies any nausea, vomiting, abdominal pain. Patient reports he had several bowel movements. He'll be advanced to a regular diet today, possible discharge tomorrow. 04/30: Patient evaluated today, noted to be sitting up in the bedside chair, in no acute distress. Patient reports pain is well controlled, he is tolerating his diet without any nausea vomiting or abdominal pain. He is having good bowel movements and passing gas. Drainage tube was removed yesterday. Plans for discharge today recommend changing IV antibiotics to Augmentin. Objective - Vital Signs Vital signs: Vital Signs Temp 97.5 F L 04/30/20 09:31 Pulse 70 04/30/20 09:31 Resp 22 04/30/20 09:31 BP 149/88 04/30/20 09:31 Pulse Ox 94 L 04/30/20 09:31 Intake & Output 04/29/20 04/30/20 04/30/20 18:59 06:59 18:59 Intake Total 820 480 Balance 820 480 Intake: Intake, IV Titration 100 Amount Piperacillin-Tazobactam 3 100 .375 gm In Sodium Chloride 0.9% 100 ml @ 25 mls/hr IVPB Q8H [facility] Rx#: [id number] Oral 720 480 Other: # Voids 3 1 # Bowel Movements 1 - Exam General Appearance: Alert, cooperative, no distress, moderately overweight Neck HEENT: Supple, no lymphadenopathy, no thyroid enlargement, no carotid bruits Lungs: No rhonchi or wheeze Chest Wall: Chest wall normal expansion with deep inspiration no tenderness and no deformity was found on exam, no costochondral pain or discomfort Heart: Regular rate and rhythm, S1, S2 normal, no murmur, rub or gallop. Back: Symmetric, no curvature, ROM normal, no CVA tenderness. Abdomen: Soft no bowel sounds incision in midline and the ostomy reversal site l ooks fine with no hematoma or bleeding Extremities: Extremities normal, atraumatic, no cyanosis or edema. Pulses: 2+ and symmetric Skin: Skin color, texture, tugor normal, no rashes or lesions Neurologic: Alert oriented x3 cranial nerves II through XII intact, no motor deficit, no abnormal balance or gait - Labs CBC & Chem 7: 04/27/20 06:09 04/27/20 06:09 Labs: Microbiology - Last 24 Hours (Table) 04/25/20 19:46 Blood Culture - Preliminary Blood No Growth after 96 hours Assessment and Plan Plan: 1 post reversal colostomy. Continue current pain management, epidural discontinued, Zofran for nausea. continue incentive spirometry to reduce incidence of atelectasis and hospital acquired pneumonia. Titrate physical therapy 2 history of bipolar disorders: Patient has not been taking any medication. Resume home meds 3 history of tobacco use, continue nicotine patch. 4 elevated blood pressure: Remain on diet control for systolic is above 140 small dose of calcium channel trudi can be use or use clonidine patch. 5 GI prophylaxis: Continue Protonix 40 mg daily. 6 DVT prophylaxis: Continue SCD along with LACY hose.. The above impression and plan of care have been discussed and directed by signing physician. Jennifer Acosta nurse practitioner acting as scribe for signing physician.
== END 2020-04-30 13:47 | disposition home or self-care (01) | DRG 330 ==
LOC: 2ORMAIN 09:56 → 4SSUR 15:16
PROVIDERS: ADMIT Surgery; ATTEND Surgery
PROC: 0DBE0ZZ Excision of Large Intestine, Open Approach (ICD-10-PCS; principal; 2020-04-24 11:30)
PROC: 0WQF0ZZ Repair Abdominal Wall, Open Approach (ICD-10-PCS; principal; 2020-04-24 11:30)
PROC: 0DBU0ZZ Excision of Omentum, Open Approach (ICD-10-PCS; principal; 2020-04-24 11:30)
DX: Z43.3 Encounter for attention to colostomy (principal); K56.7 Ileus, unspecified; Z68.41 Body mass index [BMI] 40.0-44.9, adult; E66.01 Morbid (severe) obesity due to excess calories; Z20.828 Contact with and (suspected) exposure to other viral communicable diseases; F17.210 Nicotine dependence, cigarettes, uncomplicated; R03.0 Elevated blood-pressure reading, without diagnosis of hypertension; L29.9 Pruritus, unspecified; F32.9 Major depressive disorder, single episode, unspecified; F41.9 Anxiety disorder, unspecified; M19.90 Unspecified osteoarthritis, unspecified site; K57.30 Diverticulosis of large intestine without perforation or abscess without bleeding; K43.2 Incisional hernia without obstruction or gangrene; Z91.030 Bee allergy status; Z91.018 Allergy to other foods; Z98.890 Other specified postprocedural states; Z87.39 Personal history of other diseases of the musculoskeletal system and connective tissue; Z86.79 Personal history of other diseases of the circulatory system; Z82.49 Family history of ischemic heart disease and other diseases of the circulatory system; Z86.59 Personal history of other mental and behavioral disorders; Z87.898 Personal history of other specified conditions
CPT/HCPCS: 36415; 71046; 80048; 80053; 81001; 85025; 86850; 86900; 86901; 87040; 87086; 87502; 87635; 88307; 94640; 94760

== ENCOUNTER → 2021-02-11 | Outpatient (CLI) | payer OTHER | END | disposition home or self-care (01) | LOC: CPPFTMAIN 09:55 | PROVIDERS: ATTEND Internal Medicine | DX: R06.02 Shortness of breath (principal) | CPT/HCPCS: 94060; 94726; 94729 ==

== ENCOUNTER → 2021-02-19 | Outpatient (CLI) | payer OTHER ==
[2021-02-19 15:11] LABS: Basophils # (A) 0.1 k/uL (0-0.2); Basophils % (A) 1 %; Eosinophils # (A) 0.4 k/uL (0-0.7); Eosinophils % (A) 7 %; HCT 46.1 % (39.0-53.0); HGB 15.4 gm/dL (13.0-17.5); Lymphocytes # (A) 2.5 k/uL (1.0-4.8); Lymphocytes % (A) 45 %; MCH 30.3 pg (25.0-35.0); MCHC 33.5 g/dL (31.0-37.0); MCV 90.5 fL (80.0-100.0); Mean Platelet Volume 7.2; Monocytes # (A) 0.3 k/uL (0-1.0); Monocytes % (A) 5 %; Neutrophils # (A) 2.3 k/uL (1.3-7.7); Neutrophils % (A) 41 %; Platelet Count 274 k/uL (150-450); RDW 11.6 % (11.5-15.5); WBC 5.6 k/uL (3.8-10.6)
== END | disposition home or self-care (01) ==
LOC: LABPAT 14:21
PROVIDERS: ATTEND Surgery
DX: Z00.00 Encounter for general adult medical examination without abnormal findings (principal)
CPT/HCPCS: 85025; 93005

== ENCOUNTER 2021-02-25 06:00 | Observation (INO) | payer OTHER ==
[2021-02-24 12:25] VITALS: BMI 40.6
[~2021-02-25 06:00] MED LIST changes: -HEPARIN SODIUM,PORCINE 5,000 UNIT/ML 1 ML VIAL SQ PRN; +HEPARIN SODIUM,PORCINE/PF 5,000 UNIT/0.5 ML SYRINGE SQ PRN; -LACTATED RINGERS 1,000 ML IV SCH; +LIDOCAINE 1% (10MG/ML) FOR IV START INTRADERMA PRN; -MIDAZOLAM 2 MG/2 ML VIAL IV PRN; +SCOPOLAMINE 1.5MG/72HR PATCH TRANSDERM ONE; +ceFAZolin 3 GM in SODIUM CHLORIDE 0.9% 100 ML IVPB PRN
[2021-02-25] MEDS: LACTATED RINGERS 1,000 ML IV SCH (06:43)
[2021-02-25 06:46] LABS: Glucose,Whole Blood 92 mg/dL (75-99)
[2021-02-25] MEDS ORDERED: HYDROmorphone 0.5 MG/0.5 ML SYRINGE IVP PRN (07:00)
[2021-02-25] MEDS ORDERED: PROPOFOL 10 MG/ML 20 ML VIAL IV ONE (07:49)
[2021-02-25] MEDS ORDERED: LIDOCAINE 1% INJ 10MG/ML (20 ML MDV) ONE (07:49)
[2021-02-25] MEDS ORDERED: fentaNYL (PF) 50 MCG/ML 2 ML AMP ONE (07:49)
[2021-02-25] MEDS ORDERED: GLYCOPYRROLATE 0.2 MG/ML 2 ML VIAL ONE (07:49)
[2021-02-25] MEDS ORDERED: PHENYLEPHRINE-0.9% NACL SYG 1,000 MCG/10 ML SYRINGE ONE (07:49)
[2021-02-25] MEDS ORDERED: MIDAZOLAM 2 MG/2 ML VIAL ONE (07:49)
[2021-02-25] MEDS ORDERED: ROCURONIUM 10 MG/ML (5 ML VIAL) IV ONE (07:49)
[2021-02-25] MEDS ORDERED: SUCCINYLCHOLINE CHLORIDE VIAL 200 MG/10 ML VIAL IV ONE (07:49)
[2021-02-25] MEDS ORDERED: KETOROLAC 15 MG/ML 1 ML VIAL ONE (07:49)
[2021-02-25] MEDS ORDERED: BUPIVACAINE (PF) 0.5% 30 ML VIAL SQ ONE ×2 (07:49→08:17)
[2021-02-25] MEDS ORDERED: KETAMINE 10 MG/ML 20 ML VIAL ONE (07:49)
[2021-02-25] MEDS ORDERED: NEOSTIGMINE 1 MG/ML 10 ML VIAL ONE (07:49)
[2021-02-25] MEDS ORDERED: HYDROmorphone (PF) 1 MG/ML ONE (07:49)
--- NOTE | 2021-02-25 08:09 | P.GSHP ---
History of Present Illness H&P Date: 02/25/21 Chief Complaint: Incisional hernia This is a 31-year-old male who presents today for laparoscopic robotic-assisted repair of incisional hernia. Patient is status post colostomy and subsequent reversal colostomy for perforated diverticulitis. He is developed an incisional hernia near his umbilicus. Past Medical History Past Medical History: Osteoarthritis (OA) Additional Past Medical History / Comment(s): diverticulitis, colostomy, hx of HTN in past, no current meds History of Any Multi-Drug Resistant Organisms: None Reported Past Surgical History: Orthopedic Surgery Additional Past Surgical History / Comment(s): COLOSTOMY THEN colostomy REVERSAL 01/10/20, Right knee ACL repair, fatty tumor removed left leg Past Anesthesia/Blood Transfusion Reactions: Previous Problems w/ Anesthesia Additional Past Anesthesia/Blood Transfusion Reaction / Comment(s): states "took a long time to wake up" Smoking Status: Current every day smoker - Past Family History Father History Unknown: Yes Additional Family Medical History / Comment(s): Pt does not know his father very well. Mother Family Medical History: Hypertension Additional Family Medical History / Comment(s): Gallbladder dx with jaundice/bile duct stones/jaundice, depression/anxiety. Medications and Allergies Home Medications Medication Instructions Recorded Confirmed Type No Known Home Medications 02/24/21 02/25/21 History Allergies Allergy/AdvReac Type Severity Reaction Status Date / Time bee venom protein (honey bee) Allergy Dyspnea Verified 02/25/21 06:24 CILANTRO Allergy Swelling Uncoded 02/25/21 06:24 Surgical - Exam Vital Signs Temp Pulse Resp BP Pulse Ox 97.6 F 75 18 138/87 94 L 02/25/21 06:32 02/25/21 06:32 02/25/21 06:32 02/25/21 06:32 02/25/21 06:32 - General well developed, well nourished, no distress - Eyes PERRL - ENT normal pinna - Neck no masses - Respiratory normal expansion - Cardiovascular Rhythm: regular - Abdomen Abdomen: soft, non tender Hernia: incisional Assessment and Plan Assessment: Incisional hernia. We'll perform laparoscopic robotic-assisted repair.
[2021-02-25] MEDS ORDERED: LACTATED RINGERS 1,000 ML IV ONE ×2 (09:27→09:38)
[2021-02-25] MEDS ORDERED: HYDROcodone/APAP 5-325MG 1 EACH TAB PO PRN (09:38)
[2021-02-25] MEDS ORDERED: NALOXONE 0.4 MG/ML 1 ML VIAL IV PRN (09:38)
--- NOTE | 2021-02-25 09:38 | P.OP ---
Date of Procedure: 02/25/21 Preoperative Diagnosis: Incisional hernia Postoperative Diagnosis: Incarcerated incisional hernia Procedure(s) Performed: Diagnostic laparoscopy Open repair of incarcerated incisional hernia with mesh Anesthesia: OSMAN Surgeon: Rickey Mao Estimated Blood Loss (ml): 50 Pathology: none sent Condition: stable Disposition: PACU Description of Procedure: The patient's placed on the operative table in the supine position. He received general anesthesia. His abdomen was prepped and draped in sterile fashion. The patient a previous colostomy reversal. He had a large midline incision with a periumbilical hernia. And a colostomy scar left lower quadrant. The 5 mm blade less trocar is placed in the right upper quadrant under direct visualization. The laparoscope is placed into the pleural cavity after adequate insufflation. There was a wall of adhesions noted along the scar. At this point the procedure was converted to an open procedure. The trochars withdrawn. The skin was incised midline. Using left cautery and sharp dissection the hernia sac was dissected free from subcutaneous tissues. The fascial repair was then performed using #1 Ethibond suture and O Noel fix suture. The fascial defect measured approximately 15 x 10 cm. After the fascial repair. A piece of Prolene mesh was placed over top the repair and secured with a secure strap tacker. The mesh measured approximately 30 x 20 cm. Jossy's fascia close Damar. A TRACY drains placed over top of the mesh and brought through separate stab incision left upper quadrant. Skin was closed joe. Patient top she will was sent to recovery room in stable condition.
[2021-02-25] MEDS: ONDANSETRON 4 MG/2 ML VIAL IVP PRN (10:09)
[2021-02-25] MEDS: KETOROLAC 15 MG/ML 1 ML VIAL IVP SCH ×3 (11:49→23:28)
[2021-02-25] MEDS: HYDROmorphone 0.5 MG/0.5 ML SYRINGE IVP PRN ×3 (15:32→23:40)
[2021-02-26] MEDS: ONDANSETRON 4 MG/2 ML VIAL IVP PRN (03:51)
[2021-02-26] MEDS: LACTATED RINGERS 1,000 ML IV SCH (04:41)
[2021-02-26] MEDS: KETOROLAC 15 MG/ML 1 ML VIAL IVP SCH ×2 (05:13→11:31)
[2021-02-26] MEDS: HYDROmorphone 0.5 MG/0.5 ML SYRINGE IVP PRN (07:44)
[2021-02-26 08:15] VITALS: BP 144/85; PULSE 83; RESP 18; TEMP 98.3
[2021-02-26] MEDS ORDERED: ENOXAPARIN 40 MG/0.4 ML SYRINGE SQ SCH (09:00)
--- NOTE | 2021-02-26 09:59 | P.DS ---
Providers Date of admission: 02/25/21 09:38 Expected date of discharge: 02/26/21 Attending physician: Rickey Mao Consults: 02/25/21 09:38 Consult Physician Routine Consulting Provider: Koko Mcnulty Consult Reason/Comments: Medical management Do you want consulting provider notified?: Yes Primary care physician: Koko Mcnulty MD Hospital Course: Discharge diagnosis 1. Incarcerated incisional hernia status post Diagnostic laparoscopy and Open repair of incarcerated incisional hernia with mesh. Hospital course This is a 31-year-old male who had developed an incisional hernia near the umbilicus. He is status post Diagnostic laparoscopy and Open repair of incarcerated incisional hernia with mesh. Patient reports that his pain is controlled. Earlier this morning he coughed and felt a pulling sensation in the left upper quadrant of his abdomen. This has resolved. There has been no increase in bleeding. He is tolerating diet. His pain is controlled. He is afebrile. There is been about 50 mL sanguinous output through TRACY drain this morning. He is up and ambulating. He is stable for discharge. Please refer to chart for any further details. Physician Fan Blade Aligner note has been reviewed by physician. Signing provider agrees with the documented findings, assessment, and plan of care. Patient Condition at Discharge: Stable Plan - Discharge Summary Discharge Rx Participant: Yes New Discharge Prescriptions: New HYDROcodone/APAP 5-325MG [[place] 5-325] 1 tab PO Q6HR PRN 3 Days #12 tab PRN Reason: Pain Docusate [Colace] 100 mg PO BID #30 cap Discharge Medication List Docusate [Colace] 100 mg PO BID #30 cap 02/26/21 [Rx] HYDROcodone/APAP 5-325MG [[place] 5-325] 1 tab PO Q6HR PRN 3 Days #12 tab 02/26/21 [Rx] Follow up Appointment(s)/Referral(s): oKko Mcnulty MD [Primary Care Provider] - 2 Weeks Rickey Mao MD [STAFF PHYSICIAN] - 03/04/21 2:20 pm Activity/Diet/Wound Care/Special Instructions: No driving while taking [place] No lifting over 10 pounds You may shower. No soaking or tub baths for 2 weeks Very light activity until you are reevaluated at your follow up appointment with your surgeon Recommend to quit smoking Smoking Keep a log of TRACY drain output and bring with you to your follow-up appointment Milk/strip drains 2-3 times a day Discharge Disposition: HOME SELF-CARE
--- NOTE | 2021-02-26 12:52 | P.CONS ---
History of Present Illness - Reason for Consult Consult date: 02/26/21 medical management - History of Present Illness HISTORY OF PRESENT ILLNESS This is a 31-year-old male patient of Dr. Mcnulty with past medical history of diverticulitis is with peritonitis requiring surgical intervention with colostomy and status post reversal was done in April 2020, bipolar disorder, tobacco use and daily marijuana use. Patient has been brought in the hospital on the care of Dr. Mao status post hernia repair with mesh. Patient is postop day #1. He states that he spoke with Dr. bertrand jeffers this morning and is tearful and upset because he is concerned that he may not be able to wrestle in the future. Otherwise, patient is physically feeling okay. His abdominal binder in place. Procedure was open repair. He lives he is scheduled for discharge home today. Patient has been afebrile, heart rate 83, blood pressure 144/85, pulse ox 93% on room air. Medication reconciliation has been reviewed. REVIEW OF SYSTEMS Constitutional: No fever, no chills, no night sweats. No weight change. No weakness, fatigue or lethargy. No daytime sleepiness. EENT: No headache. No blurred vision or double vision, no loss of vision. No loss of Hearing, no ringing in the ears, no dizziness. No nasal drainage or congestion. No epistaxis. No sore throat. Lungs: No shortness of breath, cough, no sputum production. No wheezing. Cardiovascular: No chest pain, no lower extremity edema. No palpitations. No paroxysmal nocturnal dyspnea. No orthopnea. No lightheadedness or dizziness. No syncopal episodes. Abdominal: Reports abdominal discomfort Reports occasional nausea, denies vomiting. No diarrhea. Reports constipation. No bloody or tarry stools, reports loss of appetite. Genitourinary: No dysuria, increased frequency, urgency. No urinary retention. Musculoskeletal: No myalgias. No muscle weakness, no gait dysfunction, no frequent falls. No back pain. No neck pain. Integumentary: No wounds, no lesions. No rash or pruritus. No unusual bruising. No change in hair or nails. Neurologic: No aphasia. No facial droop. No change in mentation. No head injury. No headache. No paralysis. No paresthesia. Psychiatric: No depression. No anxiety. No mood swings. Endocrine: No abnormal blood sugars. No weight change. No excessive sweating or thirst. No cold intolerance. SOCIAL HISTORY The patient is a smoker one pack per day since he was 12 years of age and recently cut down to 2 cigarettes per day. He drinks alcohol rarely. He states he smokes marijuana heavily every day. He lives at home with his girlfriend. FAMILY HISTORY Mother is alive at age 51 with history of gallbladder removal, depression, chronic back pain, possible diabetes. Father is alive but he does not know his father. Patient has one brother with no major medical problems. Patient has 2 sisters and one was born with cerebral palsy, hydrocephalus, spina bifida. Second sister has had appendectomy. Patient does not have any children. PHYSICAL EXAMINATION Gen: This is obesity 1-year-old male. He is resting in bed and appears to be somewhat uncomfortable although patient is tearful. HEENT: Head is atraumatic, normocephalic. Pupils equal, round. Sclerae is anicteric. NECK: Supple. No JVD. No lymphadenopathy. No thyromegaly. LUNGS: Clear to auscultation. No wheezes or rhonchi. No intercostal retractions. HEART: Regular rate and rhythm. No murmur. ABDOMEN: Soft. Obese. Bowel sounds are present. Abdominal binder in place. Wound midline covered with dressing. EXTREMITIES: No pedal edema. No calf tenderness. Dorsalis pedis +2 bilaterally. NEUROLOGICAL: Patient is awake, alert and oriented x3. Cranial nerves 2 through 12 are grossly intact. ASSESSMENT AND PLAN 1. Incarcerated incisional hernia status post diagnostic laparoscopy with open repair with mesh, postop day #1. Continue current pain management, wound care and activity per general surgery. 2. Tobacco use and dependence. Discussed smoking cessation. 4. Bipolar disorder, stable. Patient not currently on medication. 5. Daily marijuana use. DISCHARGE PLAN Home Impression and plan of care have been directed as dictated by the signing physician. Suzanna Wills nurse practitioner acting as scribe for signing physician. Past Medical History Past Medical History: Hypertension, Osteoarthritis (OA) Additional Past Medical History / Comment(s): diverticulitis, colostomy with reversal, incisional hernia, every day marijuana smoker, every day cig smoker History of Any Multi-Drug Resistant Organisms: None Reported Past Surgical History: Orthopedic Surgery Additional Past Surgical History / Comment(s): COLOSTOMY THEN colostomy REVERSAL 01/10/20, Right knee ACL repair, fatty tumor removed left leg Past Anesthesia/Blood Transfusion Reactions: Previous Problems w/ Anesthesia Additional Past Anesthesia/Blood Transfusion Reaction / Comm: states "took a long time to wake up" Past Psychological History: Anxiety, Depression Smoking Status: Current every day smoker Past Alcohol Use History: Occasional Additional Past Alcohol Use History / Comment(s): SMOKES 1 PPD SINCE AGE 12 Past Drug Use History: Marijuana Additional Drug Use History / Comment(s): Pt states he smokes marijuana daily - Past Family History Father History Unknown: Yes Additional Family Medical History / Comment(s): Pt does not know his father very well. Mother Family Medical History: Hypertension Additional Family Medical History / Comment(s): Gallbladder dx with jaundice/bile duct stones/jaundice, depression/anxiety. Medications and Allergies Home Medications Medication Instructions Recorded Confirmed Type Docusate [Colace] 100 mg PO BID #30 cap 02/26/21 Rx HYDROcodone/APAP 5-325MG [[place] 1 tab PO Q6HR PRN 3 Days #12 tab 02/26/21 Rx 5-325] Allergies Allergy/AdvReac Type Severity Reaction Status Date / Time bee venom protein (honey bee) Allergy Dyspnea Verified 02/25/21 06:24 CILANTRO Allergy Swelling Uncoded 02/25/21 06:24 Physical Exam Vitals: Vital Signs Temp Pulse Pulse Resp BP Pulse Ox 02/26/21 08:00 98.3 F 83 18 144/85 93 L 02/26/21 07:54 93 L 02/26/21 02:00 98.4 F 76 16 119/75 93 L 02/25/21 20:00 98.0 F 77 18 103/62 93 L 02/25/21 19:45 16 02/25/21 15:58 97.6 F 60 16 121/77 96 02/25/21 12:59 56 L 124/73 93 L 02/25/21 12:44 63 116/75 94 L 02/25/21 12:29 62 118/78 94 L 02/25/21 12:14 76 125/84 94 L 02/25/21 11:59 71 136/76 92 L 02/25/21 11:44 57 L 134/80 92 L 02/25/21 11:29 57 L 131/85 92 L 02/25/21 11:14 97.8 F 68 17 145/79 92 L 02/25/21 10:31 78 16 143/66 98 02/25/21 10:15 66 16 147/69 98 02/25/21 10:02 69 16 157/76 96 02/25/21 09:48 87 16 168/78 93 L Intake and Output 02/25/21 02/26/21 02/26/21 22:59 06:59 14:59 Intake Total 800 Output Total 60 30 50 Balance -60 770 -50 Intake: Oral 800 Output: Drainage 60 30 50 left abdominal 60 30 50 Other: Voiding Method Urinal Urinal # Voids 1 1
== END 2021-02-26 13:02 | disposition home or self-care (01) ==
LOC: OR 06:00 → INTOOBSV 09:38 → 4SSUR 09:38 → UNDODISIN 02-26 13:02
PROVIDERS: ADMIT Surgery; ATTEND Surgery
PROC: 0WJF4ZZ Inspection of Abdominal Wall, Percutaneous Endoscopic Approach (ICD-10-PCS; principal; 2021-02-25 07:40)
PROC: 0WUF0JZ Supplement Abdominal Wall with Synthetic Substitute, Open Approach (ICD-10-PCS; principal; 2021-02-25 07:40)
DX: K43.0 Incisional hernia with obstruction, without gangrene (principal); M19.90 Unspecified osteoarthritis, unspecified site; F31.9 Bipolar disorder, unspecified; F41.9 Anxiety disorder, unspecified; E66.9 Obesity, unspecified; Z68.41 Body mass index [BMI] 40.0-44.9, adult; F17.210 Nicotine dependence, cigarettes, uncomplicated; Z53.31 Laparoscopic surgical procedure converted to open procedure; Z91.030 Bee allergy status; Z91.018 Allergy to other foods; Z87.19 Personal history of other diseases of the digestive system; Z90.49 Acquired absence of other specified parts of digestive tract; Z86.79 Personal history of other diseases of the circulatory system; Z98.890 Other specified postprocedural states; Z71.6 Tobacco abuse counseling; Z82.49 Family history of ischemic heart disease and other diseases of the circulatory system; Z83.79 Family history of other diseases of the digestive system; Z81.8 Family history of other mental and behavioral disorders; Z82.79 Family history of other congenital malformations, deformations and chromosomal abnormalities
CPT/HCPCS: 94760; 49561; 49568; G0378 ×2; C1781; J2250; J0330; J1100; J2710; J0690; J2405 ×2; J2001; J1650; J3010; J1170 ×3; J1885 ×2; J2370; J2704; J1644

== ENCOUNTER 2021-02-26 23:23 | Emergency (ER) | payer OTHER ==
[2021-02-26 23:51] VITALS: RESP 18
[2021-02-27] MEDS ORDERED: HYDROmorphone 1 MG/ML 1 ML SYRINGE IVP STA (00:37)
[2021-02-27] MEDS ORDERED: ACETAMINOPHEN TAB 500 MG TAB PO STA (00:37)
[2021-02-27] MEDS ORDERED: ONDANSETRON 4 MG/2 ML VIAL IVP STA (00:37)
[2021-02-27] MEDS ORDERED: SODIUM CHLORIDE 0.9% 1,000 ML IV STA (00:37)
[2021-02-27 01:51] LABS: Basophils # (A) 0.1 k/uL (0-0.2); Basophils % (A) 1 %; Eosinophils # (A) 0.4 k/uL (0-0.7); Eosinophils % (A) 5 %; HGB 14.8 gm/dL (13.0-17.5); Lymphocytes # (A) 2.7 k/uL (1.0-4.8); Lymphocytes % (A) 29 %; MCH 30.7 pg (25.0-35.0); MCHC 33.6 g/dL (31.0-37.0); MCV 91.3 fL (80.0-100.0); Mean Platelet Volume 8.2; Monocytes # (A) 0.5 k/uL (0-1.0); Monocytes % (A) 5 %; Neutrophils # (A) 5.3 k/uL (1.3-7.7); Neutrophils % (A) 58 %; Platelet Count 271 k/uL (150-450); RBC 4.82 m/uL (4.30-5.90); RDW 11.6 % (11.5-15.5); WBC 9.1 k/uL (3.8-10.6)
[2021-02-27 02:07] LABS: ALT 25 U/L (4-49); AST 20 U/L (17-59); African American GFR (CKD) >90 (>60 ml/min/1.73 sqM); Albumin 3.9 g/dL (3.5-5.0); Alkaline Phosphatase 72 U/L (38-126); Anion Gap 7 mmol/L; Appearance,Urine Clear (Clear); Bilirubin,Urine Negative (Negative); Blood Urea Nitrogen 15 mg/dL (9-20); Blood,Urine Negative (Negative); Calcium 9.2 mg/dL (8.4-10.2); Carbon Dioxide 27 mmol/L (22-30); Chloride 103 mmol/L (98-107); Color,Urine Yellow; Glucose 93 mg/dL (74-99); Glucose,Urine (UA) Negative (Negative); Ketones,Urine Negative (Negative); Leukocyte Esterase,Urine Small (Negative); Lipase 38 U/L (23-300); Mucus,Urine Rare /hpf; Nitrite,Urine Negative (Negative); Non-African American GFR(CKD) >90 (>60 ml/min/1.73 sqM); PH, Urine 6.5 (5.0-8.0); Potassium 3.9 mmol/L (3.5-5.1); Protein,Urine Negative (Negative); RBC,Urine 1 /hpf (0-5); Sodium 137 mmol/L (137-145); Specific Gravity,Urine 1.026 (1.001-1.035); Squamous Epithelial Cell,Urine 2 /hpf (0-4); Total Bilirubin 0.4 mg/dL (0.2-1.3); Total Protein 6.8 g/dL (6.3-8.2); Urobilinogen,Urine <2.0 mg/dL (<2.0); WBC,Urine 8 /hpf (0-5)
--- NOTE | 2021-02-27 03:13 | XR ---
EXAMINATION TYPE: XR chest 1V portable DATE OF EXAM: 02/27/2021 COMPARISON: 04/26/2020 HISTORY: Cough TECHNIQUE: FINDINGS: There is some patchy atelectasis in the right midlung and left lung base. Heart and mediast inum are normal. There is no pleural effusion. There is no heart failure. IMPRESSION: There is a changing pattern of atelectasis compared to old exam. Normal heart.
--- NOTE | 2021-02-27 03:16 | ED ---
Recheck HPI - General Chief Complaint: Recheck/Abnormal Lab/Rx Stated Complaint: Post-op Abd Pain Time Seen by Provider: 02/26/21 23:52 Source: patient Mode of arrival: ambulatory - History of Present Illness Initial Comments: 31 year-old male patient presents to the emergency department for evaluation of abdominal pain and increased output in his TRACY drain. Patient is post-op day #2 after having hernia surgery with Dr. Mao. States that he is having increasing abdominal pain despite taking his home [place] 5/325. Last dose 1700. Patient states that he had increased output to his TRACY drain this evening, states he drained a full bulb three times back to back. States it was bloody fluid. Denies any odor. Denies any change to the color of fluid since discharge. He denies nausea or vomiting. Denies any constipation or diarrhea. Patient was febrile in triage, he was unaware he had a fever. Patient denies any recent rash, cough, shortness of breath, chest pain, back pain, numbness, tingling, dizziness, weakness, hematuria, dysuria, urinary urgency, urinary frequency, he adache, visual changes, or any other complaints. - Related Data Previous Rx's Medication Instructions Recorded Docusate [Colace] 100 mg PO BID #30 cap 02/26/21 HYDROcodone/APAP 5-325MG [[place] 1 tab PO Q6HR PRN 3 Days #12 tab 02/26/21 5-325] Allergies Allergy/AdvReac Type Severity Reaction Status Date / Time bee venom protein (honey bee) Allergy Dyspnea Verified 02/26/21 23:51 CILANTRO Allergy Swelling Uncoded 02/26/21 23:51 Review of Systems ROS Statement: Those systems with pertinent positive or pertinent negative responses have been documented in the HPI. ROS Other: All systems not noted in ROS Statement are negative. Past Medical History Past Medical History: Hypertension, Osteoarthritis (OA) Additional Past Medical History / Comment(s): diverticulitis, colostomy with reversal, incisional hernia, every day marijuana smoker, every day cig smoker History of Any Multi-Drug Resistant Organisms: None Reported Past Surgical History: Orthopedic Surgery Additional Past Surgical History / Comment(s): COLOSTOMY THEN colostomy REVERSAL 01/10/20, Right knee ACL repair, fatty tumor removed left leg, hernia repair 02/27 Past Anesthesia/Blood Transfusion Reactions: Previous Problems w/ Anesthesia Additional Past Anesthesia/Blood Transfusion Reaction / Comment(s): states "took a long time to wake up" Past Psychological History: Anxiety, Depression Smoking Status: Current every day smoker Past Alcohol Use History: Occasional Past Drug Use History: Marijuana - Past Family History Father History Unknown: Yes Additional Family Medical History / Comment(s): Pt does not know his father very well. Mother Family Medical History: Hypertension Additional Family Medical History / Comment(s): Gallbladder dx with jaundice/bile duct stones/jaundice, depression/anxiety. General Exam General appearance: alert, in no apparent distress, other (This is a well- developed, well-nourished adult male patient in no acute distress.) Respiratory exam: Present: normal lung sounds bilaterally. Absent: respiratory distress, wheezes, rales, rhonchi, stridor Cardiovascular Exam: Present: regular rate, normal rhythm, normal heart sounds. Absent: systolic murmur, diastolic murmur, rubs, gallop, clicks GI/Abdominal exam: Present: soft, tenderness (Generalized), normal bowel sounds, other (Multiple abdominal incisions are covered with dressings, no drainage on the dressings. No surrounding erythema.). Absent: distended, guarding, rebound, rigid Neurological exam: Present: alert, oriented X3, CN II-XII intact Psychiatric exam: Present: normal affect, normal mood Skin exam: Present: warm, dry, intact, normal color. Absent: rash Course Vital Signs 02/26/21 23:46 Temperature 101 F H Pulse Rate 90 Respiratory 18 Rate Blood Pressure 156/99 O2 Sat by Pulse 98 Oximetry Medical Decision Making - Medical Decision Making 31-year-old male patient who is postop day #2 after having hernia repair with Dr. Mao presents for evaluation of abdominal pain, increased output in his TRACY drain. Upon arrival he is noted to have fever at 101. Other vital signs were within normal range. Labs reviewed and revealed normal white blood cell count. Normal hemoglobin. TRACY drain did reveal output of serosanguineous drainage approximately 30 mL in the 4.5 hours that he was in the ED. This did seem to be slower than he reported at home. We did perform chest x-ray which did show diffuse atelectasis. I did discuss that this is likely causing his fever. He did admit to not using his incentive spirometer and not doing coughing and deep breathing exercises. I did discuss importance of this with him in preventing pneumonia and further fevers. We discussed splinting the abdomen for pain control during these exercises. He is instructed to increase norco to two tablets every six hours to better manage pain. We also discussed frequent ambulation to aid with passage of gas and opening his lungs. He is given v entolin inhaler for wheezing. He is also instructed to contact Dr. Mao's office first thing in the morning for further instructions. Return parameters were discussed in detail. He verbalizes understanding and agrees with this plan. This is discussed with my attending Dr. Martinez. - Lab Data Result diagrams: 02/27/21 00:59 02/27/21 00:59 Lab Results 02/27/21 02/27/21 02/27/21 Range/Units 00:59 00:59 00:59 WBC 9.1 (3.8-10.6) k/uL RBC 4.82 (4.30-5.90) m/uL Hgb 14.8 (13.0-17.5) gm/dL Hct 44.0 (39.0-53.0) % MCV 91.3 (80.0-100.0) fL MCH 30.7 (25.0-35.0) pg MCHC 33.6 (31.0-37.0) g/dL RDW 11.6 (11.5-15.5) % Plt Count 271 (150-450) k/uL MPV 8.2 Neutrophils % 58 % Lymphocytes % 29 % Monocytes % 5 % Eosinophils % 5 % Basophils % 1 % Neutrophils # 5.3 (1.3-7.7) k/uL Lymphocytes # 2.7 (1.0-4.8) k/uL Monocytes # 0.5 (0-1.0) k/uL Eosinophils # 0.4 (0-0.7) k/uL Basophils # 0.1 (0-0.2) k/uL Sodium 137 (137-145) mmol/L Potassium 3.9 (3.5-5.1) mmol/L Chloride 103 (98-107) mmol/L Carbon Dioxide 27 (22-30) mmol/L Anion Gap 7 mmol/L BUN 15 (9-20) mg/dL Creatinine 0.75 (0.66-1.25) mg/dL Est GFR (CKD-EPI)AfAm >90 (>60 ml/min/1.73 sqM) Est GFR (CKD-EPI)NonAf >90 (>60 ml/min/1.73 sqM) Glucose 93 (74-99) mg/dL Plasma Lactic Acid Kane (0.7-2.0) mmol/L Calcium 9.2 (8.4-10.2) mg/dL Total Bilirubin 0.4 (0.2-1.3) mg/dL AST 20 (17-59) U/L ALT 25 (4-49) U/L Alkaline Phosphatase 72 (38-126) U/L Total Protein 6.8 (6.3-8.2) g/dL Albumin 3.9 (3.5-5.0) g/dL Lipase 38 (23-300) U/L Urine Color Yellow Urine Appearance Clear (Clear) Urine pH 6.5 (5.0-8.0) Ur Specific [place] 1.026 (1.001-1.035) Urine Protein Negative (Negative) Urine Glucose (UA) Negative (Negative) Urine Ketones Negative (Negative) Urine Blood Negative (Negative) Urine Nitrite Negative (Negative) Urine Bilirubin Negative (Negative) Urine Urobilinogen <2.0 (<2.0) mg/dL Ur Leukocyte Esterase Small H (Negative) Urine RBC 1 (0-5) /hpf Urine WBC 8 H (0-5) /hpf Ur Squamous Epith Cells 2 (0-4) /hpf Urine Mucus Rare H (None) /hpf 02/27/21 Range/Units 00:59 WBC (3.8-10.6) k/uL RBC (4.30-5.90) m/uL Hgb (13.0-17.5) gm/dL Hct (39.0-53.0) % MCV (80.0-100.0) fL MCH (25.0-35.0) pg MCHC (31.0-37.0) g/dL RDW (11.5-15.5) % Plt Count (150-450) k/uL MPV Neutrophils % % Lymphocytes % % Monocytes % % Eosinophils % % Basophils % % Neutrophils # (1.3-7.7) k/uL Lymphocytes # (1.0-4.8) k/uL Monocytes # (0-1.0) k/uL Eosinophils # (0-0.7) k/uL Basophils # (0-0.2) k/uL Sodium (137-145) mmol/L Potassium (3.5-5.1) mmol/L Chloride (98-107) mmol/L Carbon Dioxide (22-30) mmol/L Anion Gap mmol/L BUN (9-20) mg/dL Creatinine (0.66-1.25) mg/dL Est GFR (CKD-EPI)AfAm (>60 ml/min/1.73 sqM) Est GFR (CKD-EPI)NonAf (>60 ml/min/1.73 sqM) Glucose (74-99) mg/dL Plasma Lactic Acid Kane 0.8 (0.7-2.0) mmol/L Calcium (8.4-10.2) mg/dL Total Bilirubin (0.2-1.3) mg/dL AST (17-59) U/L ALT (4-49) U/L Alkaline Phosphatase (38-126) U/L Total Protein (6.3-8.2) g/dL Albumin (3.5-5.0) g/dL Lipase (23-300) U/L Urine Color Urine Appearance (Clear) Urine pH (5.0-8.0) Ur Specific [place] (1.001-1.035) Urine Protein (Negative) Urine Glucose (UA) (Negative) Urine Ketones (Negative) Urine Blood (Negative) Urine Nitrite (Negative) Urine Bilirubin (Negative) Urine Urobilinogen (<2.0) mg/dL Ur Leukocyte Esterase (Negative) Urine RBC (0-5) /hpf Urine WBC (0-5) /hpf Ur Squamous Epith Cells (0-4) /hpf Urine Mucus (None) /hpf - Radiology Data Radiology results: report reviewed, image reviewed 1 view x-ray of the chest is obtained. Report is reviewed in its entirety. Impression by Dr. Cavazos shows changing pattern of atelectasis compared to old exam. Normal heart. Disposition Clinical Impression: Atelectasis, Post-operative pain Disposition: HOME SELF-CARE Condition: Good Instructions (If sedation given, give patient instructions): Atelectasis (ED) Additional Instructions: Take 2 norco every 6 hours for pain. Do incentive spirometer 10 times per hour while awake, this will prevent pneumonia. Try getting up to ambulate frequently throughout the day. Call Dr. Mao's office in the morning for further instructions. Return to the emergency department for any new, worsening, or concerning symptoms. Is patient prescribed a controlled substance at d/c from ED?: No Referrals: Koko Mcnulty MD [Primary Care Provider] - 1-2 days Rikcey Mao MD [STAFF PHYSICIAN] - 1-2 days Time of Disposition: 03:57
[2021-02-27] MEDS ORDERED: ALBUTEROL HFA INHALER INHALATION STA (03:54)
[2021-02-27] MEDS ORDERED: HYDROmorphone 0.5 MG/0.5 ML SYRINGE IVP STA (03:56)
[2021-02-27 05:01] VITALS: BP 131/73; PULSE 74; TEMP 98.2
== END 2021-02-27 05:04 | disposition home or self-care (01) ==
LOC: EC 23:23
DX: J98.11 Atelectasis (principal); R10.9 Unspecified abdominal pain; G89.18 Other acute postprocedural pain; I10 Essential (primary) hypertension; F17.210 Nicotine dependence, cigarettes, uncomplicated; Z91.018 Allergy to other foods; Z88.8 Allergy status to other drugs, medicaments and biological substances
CPT/HCPCS: 36415; 94640; 80053; 83605; 83690; 85025; 81001; 87040; 71045; 96361; 99284; 96374; 96375; 96376; J2405; J1170 ×2

== ENCOUNTER 2021-10-18 20:25 | Emergency (ER) | payer OTHER ==
[2021-10-18 21:36] VITALS: RESP 18
[2021-10-18] MEDS ORDERED: SODIUM CHLORIDE 0.9% 1,000 ML IV STA (21:44)
[2021-10-18] MEDS ORDERED: KETOROLAC 15 MG/ML 1 ML VIAL IVP STA (21:44)
[2021-10-18] MEDS ORDERED: MORPHINE SULFATE 4 MG/ML SYRINGE IV STA (21:44)
[2021-10-18] MEDS ORDERED: ONDANSETRON 4 MG/2 ML VIAL IVP STA (21:44)
--- NOTE | 2021-10-18 21:45 | ED ---
Abdominal Pain HPI - General Chief Complaint: Abdominal Pain Stated Complaint: Abd pain,Dizziness Time Seen by Provider: 10/18/21 21:38 Source: patient, RN notes reviewed, old records reviewed Mode of arrival: ambulatory Limitations: no limitations - History of Present Illness Initial Comments: This is a 31-year-old male to the emergency department for evaluation of abdominal pain coming with left-sided abdominal pain recurrent. History of diverticulitis history of diverticular surgery at this facility. Patient states pain has been episodic but worsening. Mild nausea no vomiting no fevers. Patient has no other medical history, takes no significant chronic medications. 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 and prior incisional hernia repair Complaint: abdominal pain -: days(s) Location: diffuse, LLQ Radiation: LUQ, LLQ Migration to: LLQ Severity: moderate Severity scale (1-10): 4 Quality: aching Consistency: intermittent Improves With: nothing Worsens With: nothing Context: recent surgery/procedure Associated Symptoms: nausea, vomiting Treatments Prior to Arrival: other (none) - Related Data Previous Rx's Medication Instructions Recorded Docusate [Colace] 100 mg PO BID #30 cap 02/26/21 HYDROcodone/APAP 5-325MG [[place] 1 tab PO Q6HR PRN 3 Days #12 tab 02/26/21 5-325] Allergies Allergy/AdvReac Type Severity Reaction Status Date / Time bee venom protein (honey bee) Allergy Dyspnea Verified 10/18/21 21:37 CILANTRO Allergy Swelling Uncoded 10/18/21 21:37 Review of Systems ROS Statement: Those systems with pertinent positive or pertinent negative responses have been documented in the HPI. ROS Other: All systems not noted in ROS Statement are negative. Past Medical History Past Medical History: Hypertension, Osteoarthritis (OA) Additional Past Medical History / Comment(s): diverticulitis, colostomy with reversal, incisional hernia, every day marijuana smoker, every day cig smoker History of Any Multi-Drug Resistant Organisms: None Reported Past Surgical History: Orthopedic Surgery Additional Past Surgical History / Comment(s): COLOSTOMY THEN colostomy REVERSAL 01/10/20, Right knee ACL repair, fatty tumor removed left leg, hernia repair 02/27 Past Anesthesia/Blood Transfusion Reactions: Previous Problems w/ Anesthesia Additional Past Anesthesia/Blood Transfusion Reaction / Comment(s): states "took a long time to wake up" Past Psychological History: Anxiety, Depression Smoking Status: Current every day smoker Past Alcohol Use History: Occasional Past Drug Use History: Marijuana - Past Family History Father History Unknown: Yes Additional Family Medical History / Comment(s): Pt does not know his father very well. Mother Family Medical History: Hypertension Additional Family Medical History / Comment(s): Gallbladder dx with jaundice/bile duct stones/jaundice, depression/anxiety. General Exam General appearance: alert, in no apparent distress Head exam: Present: atraumatic, normocephalic, normal inspection Eye exam: Present: normal appearance, PERRL, EOMI. Absent: scleral icterus, conjunctival injection, periorbital swelling ENT exam: Present: normal exam, mucous membranes moist Neck exam: Present: normal inspection. Absent: tenderness, meningismus, lymphadenopathy Respiratory exam: Present: normal lung sounds bilaterally. Absent: respiratory distress, wheezes, rales, rhonchi, stridor Cardiovascular Exam: Present: regular rate, normal rhythm, normal heart sounds. Absent: systolic murmur, diastolic murmur, rubs, gallop, clicks GI/Abdominal exam: Present: soft, tenderness (Left lower quadrant), normal bowel sounds. Absent: distended, guarding, rebound, rigid Extremities exam: Present: normal inspection, full ROM, normal capillary refill. Absent: tenderness, pedal edema, joint swelling, calf tenderness Back exam: Present: normal inspection Neurological exam: Present: alert, oriented X3, CN II-XII intact Psychiatric exam: Present: normal affect, normal mood Skin exam: Present: warm, dry, intact, normal color. Absent: rash Course Vital Signs 10/18/21 10/18/21 10/19/21 21:34 22:25 00:19 Temperature 97.7 F Pulse Rate 88 71 72 Respiratory 18 18 18 Rate Blood Pressure 159/99 147/102 128/75 O2 Sat by Pulse 97 97 95 Oximetry - Reevaluation(s) Reevaluation #1: 10/18/21 23:09 Medical records reviewed Reevaluation #2: 10/19/21 01:04 Patient has well-controlled pain Reevaluation #3: 10/19/21 01:04 Patient informed of results and questions answered Reevaluation #4: 10/19/21 01:04 Patient is in no acute distress Medical Decision Making - Medical Decision Making 31 male to the emergency department for evaluation of abdominal pain. CT labwork is normal. At this time patient can be discharged - Lab Data Result diagrams: 10/18/21 22:21 10/18/21 22:21 Lab Results 10/18/21 10/18/21 10/18/21 Range/Units 22:21 22:21 22:21 WBC 9.4 (3.8-10.6) k/uL RBC 5.81 (4.30-5.90) m/uL Hgb 17.0 (13.0-17.5) gm/dL Hct 52.2 (39.0-53.0) % MCV 89.9 (80.0-100.0) fL MCH 29.2 (25.0-35.0) pg MCHC 32.5 (31.0-37.0) g/dL RDW 11.9 (11.5-15.5) % Plt Count 292 (150-450) k/uL MPV 8.1 Neutrophils % 78 % Lymphocytes % 13 % Monocytes % 4 % Eosinophils % 2 % Basophils % 1 % Neutrophils # 7.4 (1.3-7.7) k/uL Lymphocytes # 1.3 (1.0-4.8) k/uL Monocytes # 0.4 (0-1.0) k/uL Eosinophils # 0.2 (0-0.7) k/uL Basophils # 0.1 (0-0.2) k/uL Sodium 139 (137-145) mmol/L Potassium 5.2 H (3.5-5.1) mmol/L Chloride 103 (98-107) mmol/L Carbon Dioxide 27 (22-30) mmol/L Anion Gap 9 mmol/L BUN 10 (9-20) mg/dL Creatinine 0.84 (0.66-1.25) mg/dL Est GFR (CKD-EPI)AfAm >90 (>60 ml/min/1.73 sqM) Est GFR (CKD-EPI)NonAf >90 (>60 ml/min/1.73 sqM) Glucose 115 H (74-99) mg/dL Plasma Lactic Acid Kane 1.5 (0.7-2.0) mmol/L Calcium 9.7 (8.4-10.2) mg/dL Total Bilirubin 0.7 (0.2-1.3) mg/dL AST 29 (17-59) U/L ALT 33 (4-49) U/L Alkaline Phosphatase 97 (38-126) U/L Total Protein 8.4 H (6.3-8.2) g/dL Albumin 4.9 (3.5-5.0) g/dL Amylase 98 (30-110) U/L Lipase 350 H (23-300) U/L Disposition Clinical Impression: Morbid obesity due to excess calories, Abdominal pain Disposition: HOME SELF-CARE Condition: Good Instructions (If sedation given, give patient instructions): Abdominal Pain (ED) Is patient prescribed a controlled substance at d/c from ED?: No Referrals: None,Stated [Primary Care Provider] - 1-2 days
[2021-10-18 22:31] LABS: Basophils # (A) 0.1 k/uL (0-0.2); Basophils % (A) 1 %; Eosinophils # (A) 0.2 k/uL (0-0.7); Eosinophils % (A) 2 %; HCT 52.2 % (39.0-53.0); Lymphocytes # (A) 1.3 k/uL (1.0-4.8); Lymphocytes % (A) 13 %; MCH 29.2 pg (25.0-35.0); MCHC 32.5 g/dL (31.0-37.0); MCV 89.9 fL (80.0-100.0); Mean Platelet Volume 8.1; Monocytes # (A) 0.4 k/uL (0-1.0); Monocytes % (A) 4 %; Neutrophils # (A) 7.4 k/uL (1.3-7.7); Neutrophils % (A) 78 %; Platelet Count 292 k/uL (150-450); RBC 5.81 m/uL (4.30-5.90); RDW 11.9 % (11.5-15.5); WBC 9.4 k/uL (3.8-10.6)
--- NOTE | 2021-10-18 23:21 | CT ---
EXAMINATION TYPE: CT abdomen pelvis w con DATE OF EXAM: 10/18/2021 COMPARISON: 01/10/2020 HISTORY: pain CT DLP: 5.5 mGycm Automated exposure control for dose reduction was used. CONTRAST: Performed with IV Contrast, patient injected with 100 mL of Isovue 300. Images obtained from the diaphragm to the floor the pelvis with IV contrast. Lung bases are clear. No pleural effusion. Heart size is normal. No pericardial effusion. Liver spleen stomach pancreas appear intact. Bile ducts are not dilated. Gallbladder appears normal. There is no adrenal mass. Kidneys show satisfactory contrast opacification. There is no hydronephrosi s. Appendix is posterior and medial and appears normal. Bladder distends smoothly. No inguinal hernia. No free fluid in the pelvis. No pelvic mass. There are clips from surgery at the sigmoid colon. No mesenteric edema. No ascites or free air. No bowel obstruction. There is a large cystic subcutaneous fluid collection on the anterior abdominal wall that measures 11 x 7 cm and consistent with a seroma. The lumbar vertebrae appear intact. No compression fracture. Facet joints are intact. The hip joints are intact. IMPRESSION: Sigmoid colon surgery is a change compared to old exam. No evidence of diverticulitis. Large low-density midline cystic subcutaneous fluid collection consistent with a seroma on the anteri or abdominal wall. This appears new compared to old exam.
[2021-10-18] MEDS ORDERED: HYDROmorphone 1 MG/ML 1 ML SYRINGE IVP STA (23:46)
[2021-10-19 00:09] LABS: ALT 33 U/L (4-49); AST 29 U/L (17-59); African American GFR (CKD) >90 (>60 ml/min/1.73 sqM); Albumin 4.9 g/dL (3.5-5.0); Alkaline Phosphatase 97 U/L (38-126); Amylase 98 U/L (30-110); Anion Gap 9 mmol/L; Blood Urea Nitrogen 10 mg/dL (9-20); Calcium 9.7 mg/dL (8.4-10.2); Carbon Dioxide 27 mmol/L (22-30); Chloride 103 mmol/L (98-107); Glucose 115 mg/dL (74-99); Lipase 350 U/L (23-300); Non-African American GFR(CKD) >90 (>60 ml/min/1.73 sqM); Potassium 5.2 mmol/L (3.5-5.1); Sodium 139 mmol/L (137-145); Total Bilirubin 0.7 mg/dL (0.2-1.3); Total Protein 8.4 g/dL (6.3-8.2)
[2021-10-19] MEDS ORDERED: ONDANSETRON 4 MG ODT STARTER PACK 2 TAB BTL PO STA (01:42)
[2021-10-19] MEDS ORDERED: ACET/COD 300 MG/30 MG STARTER PACK 6 TAB BTL PO STA (01:42)
[2021-10-19 01:47] VITALS: BP 129/83; PULSE 93; TEMP 98.3
== END 2021-10-19 01:50 | disposition home or self-care (01) ==
LOC: EC 20:25
DX: R10.32 Left lower quadrant pain (principal); E66.01 Morbid (severe) obesity due to excess calories; I10 Essential (primary) hypertension; M19.90 Unspecified osteoarthritis, unspecified site; F17.210 Nicotine dependence, cigarettes, uncomplicated; F12.90 Cannabis use, unspecified, uncomplicated; Z79.899 Other long term (current) drug therapy; Z68.41 Body mass index [BMI] 40.0-44.9, adult
CPT/HCPCS: 36415; 80053; 82150; 83605; 83690; 85025; 74177; 99284; 96374; 96375 ×3; 96361 ×2; J2270; J2405; J1170; J1885; S0119; Q9967

== ENCOUNTER 2023-07-09 04:41 | Emergency (ER) | payer OTHER ==
[2023-07-09 05:05] VITALS: TEMP 97.6
--- NOTE | 2023-07-09 06:14 | ED ---
General Adult HPI - General Source: patient Mode of arrival: wheelchair Limitations: no limitations <Monty Jon - Last Filed: 07/09/23 06:33> <Warren Ahn - Last Filed: 07/09/23 10:05> - General Chief complaint: Anxiety Stated complaint: mental health chest pain anxiety Time Seen by Provider: 07/09/23 04:53 - History of Present Illness Initial comments: Dictation was produced using [employer] dictation software. please excuse any grammatical, word or spelling errors. Chief Complaint: 33-year-old male with anxiety and depression History of Present Illness: Patient 33-year-old male he states he had a confrontation with his mother. States that he feels bad. He is feeling depressed and stressed out anxious. Denies any suicidal homicidal ideation. Denies any visual auditory hallucinations. Patient states that he feels so upset that it is causing him chest pain. The ROS documented in this emergency department record has been reviewed and confirmed by me. Those systems with pertinent positive or negative responses have been documented in the HPI. All other systems are other negative and/or noncontributory. (Monty Jon) - Related Data Previous Rx's Medication Instructions Recorded Docusate [Colace] 100 mg PO BID #30 cap 02/26/21 HYDROcodone/APAP 5-325MG [[place] 1 tab PO Q6HR PRN 3 Days #12 tab 02/26/21 5-325] Allergies Allergy/AdvReac Type Severity Reaction Status Date / Time bee venom protein (honey bee) Allergy Dyspnea Verified 07/09/23 04:47 CILANTRO Allergy Swelling Uncoded 07/09/23 04:47 Review of Systems ROS Other: All systems not noted in ROS Statement are negative. <Monty Jon - Last Filed: 07/09/23 06:33> ROS Other: All systems not noted in ROS Statement are negative. <Warren Ahn - Last Filed: 07/09/23 10:05> ROS Statement: Those systems with pertinent positive or pertinent negative responses have been documented in the HPI. Past Medical History Past Medical History: Hypertension, Osteoarthritis (OA) Additional Past Medical History / Comment(s): diverticulitis, colostomy with reversal, incisional hernia, every day marijuana smoker, every day cig smoker History of Any Multi-Drug Resistant Organisms: None Reported Past Surgical History: Bowel Resection, Hernia Repair, Orthopedic Surgery Additional Past Surgical History / Comment(s): COLOSTOMY THEN colostomy REVERSAL 01/10/20, Right knee ACL repair, fatty tumor removed left leg, hernia repair 02/27 Past Anesthesia/Blood Transfusion Reactions: Previous Problems w/ Anesthesia Additional Past Anesthesia/Blood Transfusion Reaction / Comment(s): states "took a long time to wake up" Past Psychological History: Anxiety, Depression Smoking Status: Current every day smoker Past Alcohol Use History: Occasional Past Drug Use History: Marijuana - Past Family History Father History Unknown: Yes Additional Family Medical History / Comment(s): Pt does not know his father very well. Mother Family Medical History: Hypertension Additional Family Medical History / Comment(s): Gallbladder dx with jaundice/bile duct stones/jaundice, depression/anxiety. <Monty Jon - Last Filed: 07/09/23 06:33> General Exam Limitations: no limitations <Monty Jon - Last Filed: 07/09/23 06:33> - General Exam Comments Initial Comments: General: Well-appearing, nontoxic, no acute distress. Head: Normocephalic, atraumatic Eyes: PERRLA, EOMI ENT: Airway patent Chest: Nonlabored breathing Skin: No visual rash, normal skin tone Neuro: Alert and oriented 3 Musculoskeletal: No gross abnormalities Psych: Tearful (Monty Jon) Course Vital Signs 07/09/23 07/09/23 04:47 06:32 Temperature 97.6 F Pulse Rate 92 62 Respiratory 26 H 16 Rate Blood Pressure 188/139 133/88 O2 Sat by Pulse 99 95 Oximetry EKG Findings - EKG Comments: EKG Findings:: My EKG interpretation: Ventricular rate 61, sinus rhythm,. 172, cures 96, QTc 388. No FL prolongation, no QTC prolongation, no ST or T-wave changes noted. Overall, this EKG is unremarkable <Monty Jon - Last Filed: 07/09/23 06:33> Medical Decision Making <Monty Jon - Last Filed: 07/09/23 06:33> <Warren Ahn - Last Filed: 07/09/23 10:05> - Medical Decision Making Was pt. sent in by a medical professional or institution ([facility] Heller, PROPERTY MANAGEMENT ASSISTANT, urgent care, hospital, or longterm...) When possible be specific @ -No Did you speak to anyone other than the patient for history (EMS, parent, family, police, friend...)? What history was obtained from this source @ -No Did you review nursing and triage notes (agree or disagree)? Why? @ -I reviewed and agree with nursing and triage notes Were old charts reviewed (outside hosp., previous admission, EMS record, old EKG, old radiological studies, urgent care reports/EKG's, longterm records)? Report findings @ -No old charts were reviewed Differential Diagnosis (chest pain, altered mental status, abdominal pain women, abdominal pain men, vaginal bleeding, musculoskeletal, weakness, fever, dyspnea, syncope, headache, dizziness, GI bleed, back pain, seizure, CVA, palpatations, mental health)? @ -Differential Mental Health: Depression, anxiety, bipolar, psychosis, schizophrenia, borderline personality, situational depression, adjustment disorder, behavioral disorder, brain tumor, malingering, substance abuse, encephalopathy, medication reaction, dementia, hypothyroidism, degenerative neurologic disorder, lupus.... This is not meant to be all-inclusive list EKG interpreted by me (3pts min.). @ -See above X-rays interpreted by me (1pt min.). @ -None done CT interpreted by me (1pt min.). @ -None done U/S interpreted by me (1pt. min.). @ -None done What testing was considered but not performed or refused? (CT, X-rays, U/S, labs)? Why? @ -None What meds were considered but not given or refused? Why? @ -None Did you discuss the management of the patient with other professionals (professionals i.e. NAOMI Heller, PROPERTY MANAGEMENT ASSISTANT, lab, RT, psych nurse, social work job titles, business lawyer, teacher, licensed loan officer, manager rn case)? Give summary @ -No Was smoking cessation discussed for >3mins.? @ -No Was critical care preformed (if so, how long)? @ -No Were there social determinants of health that impacted care today? How? (Homelessness, low income, unemployed, alcoholism, drug addiction, transportation, low edu. Level, literacy, decrease access to med. care, halfway, rehab)? @ -No Was there de-escalation of care discussed even if they declined (Discuss DNR or withdrawal of care, Hospice)? DNR status @ -No What co-morbidities impacted this encounter? (DM, HTN, Smoking, COPD, CAD, Cancer, CVA, ARF, Chemo, Hep., AIDS, mental health diagnosis, sleep apnea, morbid obesity)? @ -None Was patient admitted / discharged? Hospital course, mention meds given and route, prescriptions, significant lab abnormalities, going to OR and other pertinent info. @ -33-year-old male presents to the emergency department seeking mental health evaluation. Vital signs stable. Patient medically cleared for EPS evaluation Undiagnosed new problem with uncertain prognosis? @ -No Drug Therapy requiring intensive monitoring for toxicity (Heparin, Nitro, Insulin, Cardizem)? @ -No Were any procedures done? @ -No Diagnosis/symptom? Acute, or Chronic, or Acute on Chronic? Uncomplicated (without systemic symptoms) or Complicated (systemic symptoms)? @ -Mental health evaluation (Monty Jon) Case discussed with mental health nurse with plans for admission. Patient reevaluated by myself and resting comfortably in bed. Patient denies suicidal ideation and does contract for safety. Diagnosis: Anxiety, acute Plan for discharge with follow-up (Warren Ahn) Disposition <Monty Jon - Last Filed: 07/09/23 06:33> Is patient prescribed a controlled substance at d/c from ED?: No Time of Disposition: 10:05 <Warren Ahn - Last Filed: 07/09/23 10:05> Clinical Impression: Acute anxiety Disposition: HOME SELF-CARE Condition: Stable Instructions (If sedation given, give patient instructions): Generalized Anxiety Disorder (ED) Additional Instructions: Please follow-up with mental health services as directed. Please follow-up with primary care physician in the next 1 or 2 days for recheck. Return for worsening symptoms, thoughts of self-harm or other concerns. Referrals: Eduardo Iqbal MD [STAFF PHYSICIAN] - 1-2 days
[2023-07-09 06:55] VITALS: BP 133/88; PULSE 62; RESP 16
[2023-07-09] MEDS: ACETAMINOPHEN TAB 500 MG TAB PO STA (09:42)
== END 2023-07-09 09:44 | disposition home or self-care (01) ==
LOC: EC 04:41
DX: F41.9 Anxiety disorder, unspecified (principal); I10 Essential (primary) hypertension; F17.200 Nicotine dependence, unspecified, uncomplicated; F12.90 Cannabis use, unspecified, uncomplicated; Z86.59 Personal history of other mental and behavioral disorders; Z91.030 Bee allergy status; Z88.8 Allergy status to other drugs, medicaments and biological substances
CPT/HCPCS: 82075; 93005; 99282; 99284